=== PATIENT | male | born 1975 | race Two or more races ===

== ENCOUNTER 2018-05-10 12:10 | Emergency (ER) | payer BC ==
[~2018-05-10] VITALS: Ht 165.1 cm; Wt 86.2 kg
[2018-05-10 12:30] VITALS: BP 129/88
--- NOTE | 2018-05-10 14:12 | PHYS DOC ---
Past Medical History Past Medical History: No Pertinent History Past Surgical History: Other Additional Past Surgical Histo: LEFT EAR DRUM Alcohol Use: Occasionally Drug Use: Marijuana Adult General Chief Complaint Chief Complaint: HEMORRHOIDS HPI HPI Patient is a 42 year old male who presents with a history of constipation but last night began having some bleeding from his rectum area. Patient states that last night after he had a bowel movement he noticed bleeding and pain. Patient states that he's continued to have some bleeding from the area. Review of Systems Review of Systems Constitutional: Denies fever or chills [] Eyes: Denies change in visual acuity, redness, or eye pain [] HENT: Denies nasal congestion or sore throat [] Respiratory: Denies cough or shortness of breath [] Cardiovascular: No additional information not addressed in HPI [] GI: Bleeding hemorrhoid. Denies abdominal pain, nausea, vomiting, bloody stools or diarrhea [] : Denies dysuria or hematuria [] Musculoskeletal: Denies back pain or joint pain [] Integument: Denies rash or skin lesions [] Neurologic: Denies headache, focal weakness or sensory changes [] All other systems were reviewed and found to be within normal limits, except as documented in this note. Allergies Allergies Allergies Coded Allergies Type Severity Reaction Last Updated Verified No Known Drug Allergies 05/10/18 No Physical Exam Physical Exam Constitutional: Well developed, well nourished, no acute distress, non-toxic appearance. [] HENT: Normocephalic, atraumatic, bilateral external ears normal, oropharynx moist, no oral exudates, nose normal. [] Eyes: PERRLA, EOMI, conjunctiva normal, no discharge. [] Neck: Normal range of motion, no tenderness, supple, no stridor. [] Cardiovascular:Heart rate regular rhythm, no murmur [] Lungs & Thorax: Bilateral breath sounds clear to auscultation [] Abdomen: Bowel sounds normal, soft, no tenderness, no masses, no pulsatile masses. Tender bleeding hemorrhoid at 0900 on the rectum. [] Skin: Warm, dry, no erythema, no rash. [] Back: No tenderness, no CVA tenderness. [] Extremities: No tenderness, no cyanosis, no clubbing, ROM intact, no edema. [] Neurologic: Alert and oriented X 3, normal motor function, normal sensory function, no focal deficits noted. [] Psychologic: Affect normal, judgement normal, mood normal. [] Current Patient Data Vital Signs Vital Signs Date Time Temp Pulse Resp B/P (MAP) Pulse Ox O2 Delivery O2 Flow Rate FiO2 05/10/18 12:30 98.8 76 16 129/88 (102) 96 Room Air 98.8 EKG EKG [] Radiology/Procedures Radiology/Procedures [] Course & Med Decision Making Course & Med Decision Making Patient is a 42 year old male who presents with a history of constipation but last night began having some bleeding from his rectum area. Patient states that last night after he had a bowel movement he noticed bleeding and pain. Patient states that he's continued to have some bleeding from the area. Alert and oriented. Patient has a quarter-sized oozing hemorrhoid to the left side at approximately 9:00 on the rectum. There is a eraser sized opening on the hemorrhoid that is oozing blood. Patient states that the bleeding and pain started last night. Patient states he has chronic constipation. Vital signs within normal limits. Skin pink warm and dry. Mucous members are moist. There are no hemorrhoids felt inside the rectum. 1445: Gauze is placed over the hemorrhoid and pressure is held. After removal of the gauze there is a dime sized amount of blood on the gauze but bleeding seems to have slowed. Another gauze is placed and patient is holding pressure. Patient will be rechecked. 1520: Patient continues to have scant blood drainage from hemorrhoid. Patient is given as referral to Dr Petey Porter at [facility] who is a colorectal surgeon. Patient will get a prescription for Anusol and a stool softner. Dragon Disclaimer Dragon Disclaimer This electronic medical record was generated, in whole or in part, using a voice recognition dictation system. Departure Departure Impression: Primary Impression: Bleeding external hemorrhoids Disposition: 01 HOME, SELF-CARE Condition: STABLE Referrals: BERNARDO FRANKLIN MD (PCP) Patient Instructions: Hemorrhoids Additional Instructions: Call Dr. Petey Porter Colorectal surgeon at [phone] for a appointment. Use medication as prescribed. Scripts Docusate Sodium (COLACE) 100 Mg Capsule 1 CAP PO BID, #30 CAP Prov: SAM BREWER [employer] WELDING MACHINE OPERATOR 05/10/18 Hydrocortisone (ANUSOL-HC) 30 Gm Cream..g. 1 JUNIOR TP BID for 15 Days, #30 GM Prov: SAM BREWER APRN 05/10/18 SAM BREWER APRN May 10, 2018 14:12
[2018-05-10] MEDS ORDERED: HYDR30CR61 TP (14:52)
[2018-05-10] MEDS ORDERED: DOCU-109 PO (15:38)
== END 2018-05-10 16:00 | disposition home or self-care (01) ==
LOC: ER 12:10
DX: K64.4 Residual hemorrhoidal skin tags (principal); K62.5 Hemorrhage of anus and rectum
CPT/HCPCS: 99283

== ENCOUNTER 2018-09-14 11:37 | Inpatient (IN) | payer BC ==
[~2018-09-14] VITALS: Ht 172.7 cm; Wt 84.6 kg
[~2018-09-14 11:37] MED LIST: DOCU-109 PO; HYDR30CR61 TP
[2018-09-14] MEDS ORDERED: IV NORMAL SALINE 1000ML BAG 1,000 ML IV SCH (11:51)
[2018-09-14] MEDS ORDERED: KETOROLAC 30 MG/ML VIAL. IV ONE (12:00)
[2018-09-14 12:10] LABS: BASO % 0 % (0-3); EOS % 0 % (0-3); HEMATOCRIT 47.1 % (39.0-53.0); HEMOGLOBIN 16.4 g/dL (13.0-17.5); LYMPH # 0.5 x10^3/uL (1.0-4.8); LYMPH % 4 % (24-48); MEAN CORPUSCULAR HEMOGLOBIN 31 pg (25-35); MEAN CORPUSCULAR HGB CONC 35 g/dL (31-37); MEAN CORPUSCULAR VOLUME 89 fL (79-100); MONO # 0.9 x10^3/uL (0.0-1.1); MONO % 7 % (0-9); NEUT # 11.2 x10^3uL (1.8-7.7); NEUT % 89 % (31-73); PLATELET COUNT 173 x10^3/uL (140-400); RED BLOOD COUNT 5.28 x10^6/uL (4.30-5.70); RED CELL DISTRIBUTION WIDTH 12.9 % (11.5-14.5); WHITE BLOOD COUNT 12.6 x10^3/uL (4.0-11.0)
[2018-09-14 12:24] LABS: CALCIUM 9.9 mg/dL (8.5-10.1); CREATININE 2.3 mg/dL (0.7-1.3); GFR 31.3; POTASSIUM 3.3 mmol/L (3.5-5.1)
[2018-09-14 12:30] LABS: ALBUMIN 3.7 g/dL (3.4-5.0); ALBUMIN/GLOBULIN RATIO 0.8 (1.0-1.7); TOTAL BILIRUBIN 3.5 mg/dL (0.2-1.0); TOTAL PROTEIN 8.6 g/dL (6.4-8.2)
--- NOTE | 2018-09-14 12:33 | RAD ---
PQRS Compliance statement: One or more of the following individualized dose reduction techniques were utilized for this examination: 1. Automated exposure control. 2. Adjustment of the mA and/or kV according to patient size. 3. Use of iterative reconstruction technique. Indication:Bilateral flank pain. TECHNIQUE: CT abdomen and pelvis without IV contrast with multiplanar reformats. COMPARISON: None FINDINGS: Limited evaluation of solid abdominal and pelvic organs due to lack of IV contrast. Heart is normal in size. No pericardial or pleural effusion. Clear lung bases. Too small to characterize low attenuating lesion is seen in segment 2/4 a junction (series 2 image 61). Otherwise, noncontrast appearance of the liver, spleen, gallbladder, pancreas, adrenals within normal limits. 6 cm partially exophytic too small to characterize low attenuating lesion in the right kidney. No nephrolithiasis or hydronephrosis. No enlarged retroperitoneal or pelvic adenopathy. No free pelvic fluid or ascites. Prostate is enlarged measuring 6.3 x 5.3 cm. Urinary bladder is decompressed without radiopaque stone. Small fat-containing left inguinal hernia. Inflammatory changes are seen in the perivascular fat. No bowel obstruction. Normal appendix. No pneumoperitoneum. No suspicious bony lesion. IMPRESSION: 1. Too small to characterize solitary liver and right renal lesion statistically simple cysts in absence of known malignancy. Follow-up CT abdomen with IV contrast can be obtained in 6 months. 2. Enlarged prostate. Clinically correlate with physical exam and PSA. 3. No nephrolithiasis. Circumferential urinary bladder wall thickening with perivesicular fat stranding may be secondary to cystitis. Clinically correlate with urinalysis. Electronically signed by: Edouard Sepulveda DO (09/14/2018 12:31 PM) [facility]
[2018-09-14 13:01] LABS: % BANDS 20 % (0-9); % LYMPHS 1 % (24-48); % MONOS 1 % (0-10); % SEGS 78 % (35-66); PLT ESTIMATE ADEQUATE (ADEQUATE)
[2018-09-14 13:40] LABS: CLARITY,URINE TURBID; COLOR,URINE ORANGE
[2018-09-14 14:01] LABS: WBC,URINE >40 /HPF (0-4)
[2018-09-14 14:05] LABS: BACTERIA,URINE MODERATE /HPF (0-FEW)
--- NOTE | 2018-09-14 14:26 | PHYS DOC ---
Past Medical History Past Medical History: No Pertinent History Past Surgical History: Other Additional Past Surgical Histo: LEFT EAR DRUM Alcohol Use: Occasionally Drug Use: Marijuana Adult General Chief Complaint Chief Complaint: FLANK PAIN HPI HPI Patient is a 42-year-old male who presents with complaint of bilateral flank pain with subjective fever, sweats as well as nausea and vomiting for the last 3 days. Patient states that he has had difficulty in keeping anything down. He states that the pain in his back right now is about a 5 out of 10 but states that yesterday the pain was much worse. Patient states that nothing has been improving his pain. He also indicates that he has had painful urination and passing very small amounts of urine at a time.[] Review of Systems Review of Systems Constitutional: Positive fever and chills [] Respiratory: Denies cough or shortness of breath [] Cardiovascular: No additional information not addressed in HPI [] GI: Denies abdominal pain. Complains of nausea and vomiting [] : Positive dysuria, urinary urgency and hematuria [] Musculoskeletal: Complains of bilateral flank and back pain [] All other systems were reviewed and found to be within normal limits, except as documented in this note. Current Medications Current Medications Current Medications Medications (Trade) Dose Ordered Sig/Philip Start Time Stop Time Status Last Admin Dose Admin Ceftriaxone Sodium (Rocephin) 1 gm 1X ONCE 09/14/18 14:30 09/14/18 14:31 DC 09/14/18 14:39 1 GM Ketorolac Tromethamine (Toradol 30mg Vial) 30 mg 1X ONCE 09/14/18 12:00 09/14/18 12:01 DC 09/14/18 12:12 30 MG Sodium Chloride 1,000 ml @ 1,000 mls/hr Q1H 09/14/18 11:51 09/14/18 12:50 DC 09/14/18 11:57 1,000 MLS/HR Allergies Allergies Allergies Coded Allergies Type Severity Reaction Last Updated Verified No Known Drug Allergies 09/14/18 No Physical Exam Physical Exam Constitutional: Well developed, well nourished, no acute distress, non-toxic appearance. [] HENT: Normocephalic, atraumatic, bilateral external ears normal, oropharynx moist, no oral exudates, nose normal. [] Eyes: PERRLA, EOMI, conjunctiva normal, no discharge. [] Neck: Normal range of motion, no tenderness, supple, no stridor. [] Cardiovascular:Heart rate regular rhythm, no murmur [] Lungs & Thorax: Bilateral breath sounds clear to auscultation [] Abdomen: Bowel sounds normal, soft, with suprapubic tenderness. [] Skin: Cool and diaphoretic. [] Back: Positive CVA tenderness on the right. [] Extremities: No tenderness, no cyanosis, no clubbing, ROM intact, no edema. [] Neurologic: Alert and oriented X 3, no focal deficits noted. [] Current Patient Data Vital Signs Vital Signs Date Time Temp Pulse Resp B/P (MAP) Pulse Ox O2 Delivery O2 Flow Rate FiO2 09/14/18 12:40 101 18 111/73 (86) 95 Room Air 09/14/18 11:46 99.7 99.7 Lab Values Laboratory Tests Test 09/14/18 12:00 09/14/18 13:30 White Blood Count 12.6 x10^3/uL (4.0-11.0) H Red Blood Count 5.28 x10^6/uL (4.30-5.70) Hemoglobin 16.4 g/dL (13.0-17.5) Hematocrit 47.1 % (39.0-53.0) Mean Corpuscular Volume 89 fL (79-100) Mean Corpuscular Hemoglobin 31 pg (25-35) Mean Corpuscular Hemoglobin Concent 35 g/dL (31-37) Red Cell Distribution Width 12.9 % (11.5-14.5) Platelet Count 173 x10^3/uL (140-400) Neutrophils (%) (Auto) 89 % (31-73) H Lymphocytes (%) (Auto) 4 % (24-48) L Monocytes (%) (Auto) 7 % (0-9) Eosinophils (%) (Auto) 0 % (0-3) Basophils (%) (Auto) 0 % (0-3) Neutrophils # (Auto) 11.2 x10^3uL (1.8-7.7) H Lymphocytes # (Auto) 0.5 x10^3/uL (1.0-4.8) L Monocytes # (Auto) 0.9 x10^3/uL (0.0-1.1) Eosinophils # (Auto) 0.0 x10^3/uL (0.0-0.7) Basophils # (Auto) 0.0 x10^3/uL (0.0-0.2) Segmented Neutrophils % 78 % (35-66) H Band Neutrophils % 20 % (0-9) H Lymphocytes % 1 % (24-48) L Monocytes % 1 % (0-10) Platelet Estimate Adequate (ADEQUATE) Sodium Level 135 mmol/L (136-145) L Potassium Level 3.3 mmol/L (3.5-5.1) L Chloride Level 95 mmol/L (98-107) L Carbon Dioxide Level 26 mmol/L (21-32) Anion Gap 14 (6-14) Blood Urea Nitrogen 23 mg/dL (8-26) Creatinine 2.3 mg/dL (0.7-1.3) H Estimated GFR (Cockcroft-Gault) 31.3 BUN/Creatinine Ratio 10 (6-20) Glucose Level 126 mg/dL (70-99) H Calcium Level 9.9 mg/dL (8.5-10.1) Total Bilirubin 3.5 mg/dL (0.2-1.0) H Aspartate Amino Transferase (AST) 36 U/L (15-37) Alanine Aminotransferase (ALT) 40 U/L (16-63) Alkaline Phosphatase 123 U/L (46-116) H Total Protein 8.6 g/dL (6.4-8.2) H Albumin 3.7 g/dL (3.4-5.0) Albumin/Globulin Ratio 0.8 (1.0-1.7) L Urine Collection Type Unknown Urine Color Clymer Urine Clarity Turbid Urine pH 5.0 Urine Specific Lamar 1.025 Urine Protein mg/dL (NEG-TRACE) Urine Glucose (UA) mg/dL (NEG) Urine Ketones (Stick) mg/dL (NEG) Urine Blood Large (NEG) Urine Nitrite (NEG) Urine Bilirubin (NEG) Urine Urobilinogen Dipstick mg/dL (0.2 mg/dL) Urine Leukocyte Esterase (NEG) Urine RBC 6-10 /HPF (0-2) Urine WBC >40 /HPF (0-4) Urine Bacteria Moderate /HPF (0-FEW) Laboratory Tests 09/14/18 12:00 Laboratory Tests 09/14/18 12:00 EKG EKG [] Radiology/Procedures Radiology/Procedures [] Impressions: PROCEDURE: CT ABDOMEN PELVIS WO CONTRAST PQRS Compliance statement: One or more of the following individualized dose reduction techniques were utilized for this examination: 1. Automated exposure control. 2. Adjustment of the mA and/or kV according to patient size. 3. Use of iterative reconstruction technique. Indication:Bilateral flank pain. TECHNIQUE: CT abdomen and pelvis without IV contrast with multiplanar reformats. COMPARISON: None FINDINGS: Limited evaluation of solid abdominal and pelvic organs due to lack of IV contrast. Heart is normal in size. No pericardial or pleural effusion. Clear lung bases. Too small to characterize low attenuating lesion is seen in segment 2/4 a junction (series 2 image 61). Otherwise, noncontrast appearance of the liver, spleen, gallbladder, pancreas, adrenals within normal limits. 6 cm partially exophytic too small to characterize low attenuating lesion in the right kidney. No nephrolithiasis or hydronephrosis. No enlarged retroperitoneal or pelvic adenopathy. No free pelvic fluid or ascites. Prostate is enlarged measuring 6.3 x 5.3 cm. Urinary bladder is decompressed without radiopaque stone. Small fat-containing left inguinal hernia. Inflammatory changes are seen in the perivascular fat. No bowel obstruction. Normal appendix. No pneumoperitoneum. No suspicious bony lesion. IMPRESSION: 1. Too small to characterize solitary liver and right renal lesion statistically simple cysts in absence of known malignancy. Follow-up CT abdomen with IV contrast can be obtained in 6 months. 2. Enlarged prostate. Clinically correlate with physical exam and PSA. 3. No nephrolithiasis. Circumferential urinary bladder wall thickening with perivesicular fat stranding may be secondary to cystitis. Clinically correlate with urinalysis. Electronically signed by: Edouard Sepulveda DO (09/14/2018 12:31 PM) [facility] Course & Med Decision Making Course & Med Decision Making Pertinent Labs and Imaging studies reviewed. (See chart for details) [] Dragon Disclaimer Dragon Disclaimer This electronic medical record was generated, in whole or in part, using a voice recognition dictation system. Departure Departure Impression: Primary Impression: Pyelonephritis Additional Impression: Acute kidney injury Disposition: ADMITTED INPATIENT Admitting Physician: HIMS Condition: IMPROVED Referrals: BERNARDO FRANKLIN MD (PCP) Problem Qualifiers MAO HIGH Jr., DO Sep 14, 2018 14:26
[2018-09-14] MEDS ORDERED: cefTRIAXone IV Push 1 GM VIAL. IVP ONE (14:30)
[2018-09-14] MEDS: IV NORMAL SALINE 1000ML BAG 1,000 ML IV SCH ×2 (14:47→21:27)
--- NOTE | 2018-09-14 14:48 | PDOC1 ---
History and Physical Date of Admission Date of Admission DATE: 09/14/18 TIME: 14:46 Identification/Chief Complaint Chief Complaint SEEN IN ER , 42-year-old male who presents with complaint of bilateral flank pain with subjective fever, sweats as well as nausea and vomiting for the last 3 days. Patient states that he has had difficulty in keeping anything down. He states that the pain in his back right now is about a 5 out of 10 but states that yesterday the pain was much worse. Patient states that nothing has been improving his pain. He also indicates that he has had painful urination and passing very small amounts of urine at a time. UA SUGGESTS UTI/ SEPSIS, ARF[] Past Medical History Past Medical History Past Medical History Past Medical History Past Medical History: No Pertinent History Past Surgical History: Other Additional Past Surgical Histo: LEFT EAR DRUM Alcohol Use: Occasionally Drug Use: Marijuana FAMILY HX HTN Cardiovascular: Hyperlipidemia Hepatobiliary: No pertinent hx Dermatology: No pertinent hx Family History Family History: High Cholestrol, Hypertension Social History Smoke: <1 pack per day ALCOHOL: heavy Drugs: None Current Problem List Problem List Problems Medical Problems: (1) Acute kidney injury Status: Acute (2) Pyelonephritis Status: Acute Current Medications Current Medications Current Medications Sodium Chloride 1,000 ml @ 1,000 mls/hr Q1H IV Last administered on 09/14/18at 11:57; Start 09/14/18 at 11:51; Stop 09/14/18 at 12:50; Status DC Ketorolac Tromethamine (Toradol 30mg Vial) 30 mg 1X ONCE IV Last administered on 09/14/18at 12:12; Start 09/14/18 at 12:00; Stop 09/14/18 at 12:01; Status DC Ceftriaxone Sodium (Rocephin) 1 gm 1X ONCE IVP Last administered on 09/14/18at 14:39; Start 09/14/18 at 14:30; Stop 09/14/18 at 14:31; Status DC Active Scripts Active Colace (Docusate Sodium) 100 Mg Capsule 1 Cap PO BID Anusol-Hc (Hydrocortisone) 30 Gm Cream..g. 1 Gee TP BID 15 Days Allergies Allergies: Coded Allergies: No Known Drug Allergies (Unverified , 09/14/18) ROS Review of System Review of Systems Review of Systems Constitutional: Positive fever and chills [] Respiratory: Denies cough or shortness of breath [] Cardiovascular: No additional information not addressed in HPI [] GI: Denies abdominal pain. Complains of nausea and vomiting [] : Positive dysuria, urinary urgency and hematuria [] Musculoskeletal: Complains of bilateral flank and back pain [] 14 PT systems were reviewed and found to be within normal limits, except as documented . General: YES: Fatigue PSYCHOLOGICAL ROS: No: Anxiety, Behavioral Disorder, Concentration difficultie, Decreased libido, Depression, Disorientation, Hallucinations, Hostility, Irritablity, Memory difficulties, Mood Swings, Obsessive thoughts, Physical abuse, Sexual abuse, Sleep disturbances, Suicidal ideation, Other Eyes: No Blurry vision, No Decreased vision, No Double vision, No Dry eyes, No Excessive tearing, No Eye Pain, No Itchy Eyes, No Loss of vision, No Photophobia, No Scotomata, No Uses contacts, No Uses glasses, No Other Hematological and Lymphatic: No: Bleeding Problems, Blood Clots, Blood Transfusions, Brusing, Night Sweats, Pallor, Swollen Lymph Nodes, Other Respiratory: No: Cough, Hemoptysis, Orthopnea, Pleuritic Pain, Shortness of breath, SOB with excertion, Sputum Changes, Stridor, Tachypnea, Wheezing, Other Cardiovascular: No Chest Pain, No Palpitations, No Orthopnea, No Paroxysmal Noc. Dyspnea, No Edema, No Lt Headedness, No Other Gastrointestinal: Yes Nausea Musculoskeletal: No Gait Disturbance, No Joint Pain, No Joint Stiffness, No Joint Swelling, No Muscle Pain, No Muscular Weakness, No Pain In:, No Swelling In:, No Other Skin: Yes Dry Skin Physical Exam Physical Exam Physical Exam Physical Exam Constitutional: Well developed, well nourished, MILD acute distress, non-toxic appearance. [] HENT: Normocephalic, atraumatic, bilateral external ears normal, oropharynx moist, no oral exudates, nose normal. [] Eyes: PERRLA, EOMI, conjunctiva normal, no discharge. [] Neck: Normal range of motion, no tenderness, supple, no stridor. [] Cardiovascular:Heart rate regular rhythm, no murmur [] Lungs & Thorax: Bilateral breath sounds clear to auscultation [] Abdomen: Bowel sounds normal, soft, with suprapubic tenderness. [] Skin: Cool and diaphoretic. [] Back: Positive CVA tenderness on the right. [] Extremities: No tenderness, no cyanosis, no clubbing, ROM intact, no edema. [] Neurologic: Alert and oriented X 3, no focal deficits noted. [] General: Alert, Oriented X3, Cooperative, mild distress HEENT: Atraumatic, PERRLA, EOMI Lungs: Clear to auscultation, Normal air movement Heart: S1S2, RRR, no thrills, no gallops, no murmurs Abdomen: Normal bowel sounds, Soft Rectal Exam: not examined Extremities: No cyanosis Neuro: Normal speech, Strength at 5/5 X4 ext, Cranial nerves 3-12 NL Psych/Mental Status: Mental status NL, Mood NL Vitals Vitals Vital Signs Date Time Temp Pulse Resp B/P (MAP) Pulse Ox O2 Delivery O2 Flow Rate FiO2 09/14/18 14:44 64 18 115/80 (92) 09/14/18 12:40 95 Room Air 09/14/18 11:46 99.7 99.7 Labs Labs Laboratory Tests Test 09/14/18 12:00 09/14/18 13:30 White Blood Count 12.6 x10^3/uL (4.0-11.0) Red Blood Count 5.28 x10^6/uL (4.30-5.70) Hemoglobin 16.4 g/dL (13.0-17.5) Hematocrit 47.1 % (39.0-53.0) Mean Corpuscular Volume 89 fL (79-100) Mean Corpuscular Hemoglobin 31 pg (25-35) Mean Corpuscular Hemoglobin Concent 35 g/dL (31-37) Red Cell Distribution Width 12.9 % (11.5-14.5) Platelet Count 173 x10^3/uL (140-400) Neutrophils (%) (Auto) 89 % (31-73) Lymphocytes (%) (Auto) 4 % (24-48) Monocytes (%) (Auto) 7 % (0-9) Eosinophils (%) (Auto) 0 % (0-3) Basophils (%) (Auto) 0 % (0-3) Neutrophils # (Auto) 11.2 x10^3uL (1.8-7.7) Lymphocytes # (Auto) 0.5 x10^3/uL (1.0-4.8) Monocytes # (Auto) 0.9 x10^3/uL (0.0-1.1) Eosinophils # (Auto) 0.0 x10^3/uL (0.0-0.7) Basophils # (Auto) 0.0 x10^3/uL (0.0-0.2) Segmented Neutrophils % 78 % (35-66) Band Neutrophils % 20 % (0-9) Lymphocytes % 1 % (24-48) Monocytes % 1 % (0-10) Platelet Estimate Adequate (ADEQUATE) Sodium Level 135 mmol/L (136-145) Potassium Level 3.3 mmol/L (3.5-5.1) Chloride Level 95 mmol/L (98-107) Carbon Dioxide Level 26 mmol/L (21-32) Anion Gap 14 (6-14) Blood Urea Nitrogen 23 mg/dL (8-26) Creatinine 2.3 mg/dL (0.7-1.3) Estimated GFR (Cockcroft-Gault) 31.3 BUN/Creatinine Ratio 10 (6-20) Glucose Level 126 mg/dL (70-99) Calcium Level 9.9 mg/dL (8.5-10.1) Total Bilirubin 3.5 mg/dL (0.2-1.0) Aspartate Amino Transf (AST/SGOT) 36 U/L (15-37) Alanine Aminotransferase (ALT/SGPT) 40 U/L (16-63) Alkaline Phosphatase 123 U/L (46-116) Total Protein 8.6 g/dL (6.4-8.2) Albumin 3.7 g/dL (3.4-5.0) Albumin/Globulin Ratio 0.8 (1.0-1.7) Urine Collection Type Unknown Urine Color [place] Urine Clarity Turbid Urine pH 5.0 Urine Specific [place] 1.025 Urine Protein mg/dL (NEG-TRACE) Urine Glucose (UA) mg/dL (NEG) Urine Ketones (Stick) mg/dL (NEG) Urine Blood Large (NEG) Urine Nitrite (NEG) Urine Bilirubin (NEG) Urine Urobilinogen Dipstick mg/dL (0.2 mg/dL) Urine Leukocyte Esterase (NEG) Urine RBC 6-10 /HPF (0-2) Urine WBC >40 /HPF (0-4) Urine Bacteria Moderate /HPF (0-FEW) Laboratory Tests Test 09/14/18 12:00 09/14/18 13:30 White Blood Count 12.6 x10^3/uL (4.0-11.0) Red Blood Count 5.28 x10^6/uL (4.30-5.70) Hemoglobin 16.4 g/dL (13.0-17.5) Hematocrit 47.1 % (39.0-53.0) Mean Corpuscular Volume 89 fL (79-100) Mean Corpuscular Hemoglobin 31 pg (25-35) Mean Corpuscular Hemoglobin Concent 35 g/dL (31-37) Red Cell Distribution Width 12.9 % (11.5-14.5) Platelet Count 173 x10^3/uL (140-400) Neutrophils (%) (Auto) 89 % (31-73) Lymphocytes (%) (Auto) 4 % (24-48) Monocytes (%) (Auto) 7 % (0-9) Eosinophils (%) (Auto) 0 % (0-3) Basophils (%) (Auto) 0 % (0-3) Neutrophils # (Auto) 11.2 x10^3uL (1.8-7.7) Lymphocytes # (Auto) 0.5 x10^3/uL (1.0-4.8) Monocytes # (Auto) 0.9 x10^3/uL (0.0-1.1) Eosinophils # (Auto) 0.0 x10^3/uL (0.0-0.7) Basophils # (Auto) 0.0 x10^3/uL (0.0-0.2) Segmented Neutrophils % 78 % (35-66) Band Neutrophils % 20 % (0-9) Lymphocytes % 1 % (24-48) Monocytes % 1 % (0-10) Platelet Estimate Adequate (ADEQUATE) Sodium Level 135 mmol/L (136-145) Potassium Level 3.3 mmol/L (3.5-5.1) Chloride Level 95 mmol/L (98-107) Carbon Dioxide Level 26 mmol/L (21-32) Anion Gap 14 (6-14) Blood Urea Nitrogen 23 mg/dL (8-26) Creatinine 2.3 mg/dL (0.7-1.3) Estimated GFR (Cockcroft-Gault) 31.3 BUN/Creatinine Ratio 10 (6-20) Glucose Level 126 mg/dL (70-99) Calcium Level 9.9 mg/dL (8.5-10.1) Total Bilirubin 3.5 mg/dL (0.2-1.0) Aspartate Amino Transf (AST/SGOT) 36 U/L (15-37) Alanine Aminotransferase (ALT/SGPT) 40 U/L (16-63) Alkaline Phosphatase 123 U/L (46-116) Total Protein 8.6 g/dL (6.4-8.2) Albumin 3.7 g/dL (3.4-5.0) Albumin/Globulin Ratio 0.8 (1.0-1.7) Urine Collection Type Unknown Urine Color [place] Urine Clarity Turbid Urine pH 5.0 Urine Specific [place] 1.025 Urine Protein mg/dL (NEG-TRACE) Urine Glucose (UA) mg/dL (NEG) Urine Ketones (Stick) mg/dL (NEG) Urine Blood Large (NEG) Urine Nitrite (NEG) Urine Bilirubin (NEG) Urine Urobilinogen Dipstick mg/dL (0.2 mg/dL) Urine Leukocyte Esterase (NEG) Urine RBC 6-10 /HPF (0-2) Urine WBC >40 /HPF (0-4) Urine Bacteria Moderate /HPF (0-FEW) Images Images : 1975 LOCATION: ER AGE: 42 SEX: M EXAM STATUS: REG ER ORD. PHYSICIAN: MAO HIGH Jr. DO REASON: bilateral flank pain PROCEDURE: CT ABDOMEN PELVIS WO CONTRAST PQRS Compliance statement: One or more of the following individualized dose reduction techniques were utilized for this examination: 1. Automated exposure control. 2. Adjustment of the mA and/or kV according to patient size. 3. Use of iterative reconstruction technique. Indication:Bilateral flank pain. TECHNIQUE: CT abdomen and pelvis without IV contrast with multiplanar reformats. COMPARISON: None FINDINGS: Limited evaluation of solid abdominal and pelvic organs due to lack of IV contrast. Heart is normal in size. No pericardial or pleural effusion. Clear lung bases. Too small to characterize low attenuating lesion is seen in segment 2/4 a junction (series 2 image 61). Otherwise, noncontrast appearance of the liver, spleen, gallbladder, pancreas, adrenals within normal limits. 6 cm partially exophytic too small to characterize low attenuating lesion in the right kidney. No nephrolithiasis or hydronephrosis. No enlarged retroperitoneal or pelvic adenopathy. No free pelvic fluid or ascites. Prostate is enlarged measuring 6.3 x 5.3 cm. Urinary bladder is decompressed without radiopaque stone. Small fat-containing left inguinal hernia. Inflammatory changes are seen in the perivascular fat. No bowel obstruction. Normal appendix. No pneumoperitoneum. No suspicious bony lesion. IMPRESSION: 1. Too small to characterize solitary liver and right renal lesion statistically simple cysts in absence of known malignancy. Follow-up CT abdomen with IV contrast can be obtained in 6 months. 2. Enlarged prostate. Clinically correlate with physical exam and PSA. 3. No nephrolithiasis. Circumferential urinary bladder wall thickening with perivesicular fat stranding may be secondary to cystitis. Clinically correlate with urinalysis. Electronically signed by: Edouard Sepulveda DO (09/14/2018 12:31 PM) [facility]- VTE Prophylaxis Ordered VTE Prophylaxis Devices: Yes VTE Pharmacological Prophylaxi: Yes Assessment/Plan Assessment/Plan IMPRESSION: 1. solitary liver and right renal lesion statistically simple cysts in absence of known malignancy. Follow-up CT abdomen with IV contrast can be obtained in 6 months. 2. Enlarged prostate. ON CT IMAGING 3. Circumferential urinary bladder wall thickening with perivesicular fat stranding may be secondary to cystitis. Clinically correlate with urinalysis. 4. UTI 5. SEPSIS 6, ACUTE RENAL FAILURE 7. SEVERE ALCOHOL ABUSE, drinks 12 beers a day 8. thc abuse PLAN ADMIT IV ANTIBIOTICS IV FLUIDS BLOOD AND URINE CULTURES DVT PROPHYLAXIS Nephrology consult po protonix gi prophylaxis 76 min pt exam, chart review, > 50% of time spent with exam, chart review, pt care coordination, disease process education , d/w in room RANDI TRINIDAD MD Sep 14, 2018 14:48
[2018-09-14] MEDS ORDERED: MORPHINE SULFATE 2 MG/ML VIAL. IV PRN (15:00)
[2018-09-14] MEDS ORDERED: ONDANSETRON PF 4 MG/2 ML VIAL. IV PRN (15:00)
[2018-09-14] MEDS ORDERED: cloNIDine HCL 0.1 MG TABLET PO PRN (15:15)
[2018-09-14] MEDS ORDERED: POTASSIUM CHLORIDE 20 MEQ TABLET.ER. PO ONE (15:15)
[2018-09-14] MEDS ORDERED: LORazepam 1 MG TABLET PO PRN ×2 (15:15)
[2018-09-14] MEDS ORDERED: HALOPERIDOL LACTATE 5 MG/ML VIAL. IVP PRN (15:15)
[2018-09-14] MEDS ORDERED: diphenhydrAMINE 50 MG/ML VIAL IVP PRN (15:15)
--- NOTE | 2018-09-14 15:30 | NUR ---
The patient, SOLANGE HERNANDEZ, 42 y/o, M admitted by RANDI TRINIDAD MD, was given written information regarding hospital policies, unit procedures and contact persons. Valuables were checked. Patient verb. understanding POC and fall protocol. Fall contract witnessed. See admission and assessment. Side rails up times two, call light at hand. Continue cares and monitor.
[2018-09-14] MEDS: MULTIVIT INFUSN,ADULT 4,VIT K 10 ML, THIAMINE INJ 100 MG, FOLIC ACID INJ 1 MG in IV NOR... IV SCH (15:43)
[2018-09-14 19:00] VITALS: BP 152/119
[2018-09-14] MEDS: ACETAMINOPHEN 325 MG TABLET. PO PRN (19:57)
[2018-09-14 22:59] VITALS: BP 145/66
[2018-09-15] MEDS: IV NORMAL SALINE 1000ML BAG 1,000 ML IV SCH ×2 (02:10→10:47)
[2018-09-15 02:39] VITALS: BP 110/67
[2018-09-15 05:18] LABS: BASO % 0 % (0-3); EOS % 0 % (0-3); HEMATOCRIT 39.5 % (39.0-53.0); HEMOGLOBIN 13.5 g/dL (13.0-17.5); LYMPH # 0.7 x10^3/uL (1.0-4.8); LYMPH % 6 % (24-48); MEAN CORPUSCULAR HEMOGLOBIN 31 pg (25-35); MEAN CORPUSCULAR HGB CONC 34 g/dL (31-37); MEAN CORPUSCULAR VOLUME 91 fL (79-100); MONO # 1.1 x10^3/uL (0.0-1.1); MONO % 9 % (0-9); NEUT # 10.2 x10^3uL (1.8-7.7); NEUT % 85 % (31-73); PLATELET COUNT 152 x10^3/uL (140-400); RED BLOOD COUNT 4.37 x10^6/uL (4.30-5.70); WHITE BLOOD COUNT 11.9 x10^3/uL (4.0-11.0)
[2018-09-15 05:25] LABS: ALBUMIN 2.8 g/dL (3.4-5.0); ALBUMIN/GLOBULIN RATIO 0.7 (1.0-1.7); CALCIUM 8.7 mg/dL (8.5-10.1); CREATININE 1.5 mg/dL (0.7-1.3); GFR 51.3; POTASSIUM 3.7 mmol/L (3.5-5.1); TOTAL BILIRUBIN 1.6 mg/dL (0.2-1.0)
[2018-09-15 05:59] LABS: PROTHROMBIN TIME PATIENT 14.9 SEC (11.7-14.0)
[2018-09-15 07:00] VITALS: BP 120/72
[2018-09-15] MEDS: ACETAMINOPHEN 325 MG TABLET. PO PRN ×3 (07:31→15:19)
[2018-09-15] MEDS ORDERED: VANCOMYCIN 2 GM in IV NORMAL SALINE 500ML BAG 500 ML IV ONE (08:15)
[2018-09-15] MEDS ORDERED: VANCOMYCIN 500 MG in IV NORMAL SALINE 100ML 100 ML IV ONE (08:15)
[2018-09-15] MEDS ORDERED: VANCOMYCIN PER PHARMACY MC PRN (08:30)
--- NOTE | 2018-09-15 08:46 | PDOC ---
Infectious Disease Note Vital Sign Vital Signs Vital Signs Date Time Temp Pulse Resp B/P (MAP) Pulse Ox O2 Delivery O2 Flow Rate FiO2 09/15/18 07:43 Room Air 09/15/18 07:00 102.8 113 12 120/72 (88) 91 102.8 Labs Lab Laboratory Tests Test 09/14/18 12:00 09/14/18 13:30 09/15/18 04:00 White Blood Count 12.6 x10^3/uL (4.0-11.0) 11.9 x10^3/uL (4.0-11.0) Red Blood Count 5.28 x10^6/uL (4.30-5.70) 4.37 x10^6/uL (4.30-5.70) Hemoglobin 16.4 g/dL (13.0-17.5) 13.5 g/dL (13.0-17.5) Hematocrit 47.1 % (39.0-53.0) 39.5 % (39.0-53.0) Mean Corpuscular Volume 89 fL (79-100) 91 fL (79-100) Mean Corpuscular Hemoglobin 31 pg (25-35) 31 pg (25-35) Mean Corpuscular Hemoglobin Concent 35 g/dL (31-37) 34 g/dL (31-37) Red Cell Distribution Width 12.9 % (11.5-14.5) 13.0 % (11.5-14.5) Platelet Count 173 x10^3/uL (140-400) 152 x10^3/uL (140-400) Neutrophils (%) (Auto) 89 % (31-73) 85 % (31-73) Lymphocytes (%) (Auto) 4 % (24-48) 6 % (24-48) Monocytes (%) (Auto) 7 % (0-9) 9 % (0-9) Eosinophils (%) (Auto) 0 % (0-3) 0 % (0-3) Basophils (%) (Auto) 0 % (0-3) 0 % (0-3) Neutrophils # (Auto) 11.2 x10^3uL (1.8-7.7) 10.2 x10^3uL (1.8-7.7) Lymphocytes # (Auto) 0.5 x10^3/uL (1.0-4.8) 0.7 x10^3/uL (1.0-4.8) Monocytes # (Auto) 0.9 x10^3/uL (0.0-1.1) 1.1 x10^3/uL (0.0-1.1) Eosinophils # (Auto) 0.0 x10^3/uL (0.0-0.7) 0.0 x10^3/uL (0.0-0.7) Basophils # (Auto) 0.0 x10^3/uL (0.0-0.2) 0.0 x10^3/uL (0.0-0.2) Segmented Neutrophils % 78 % (35-66) Band Neutrophils % 20 % (0-9) Lymphocytes % 1 % (24-48) Monocytes % 1 % (0-10) Platelet Estimate Adequate (ADEQUATE) Sodium Level 135 mmol/L (136-145) 133 mmol/L (136-145) Potassium Level 3.3 mmol/L (3.5-5.1) 3.7 mmol/L (3.5-5.1) Chloride Level 95 mmol/L (98-107) 98 mmol/L (98-107) Carbon Dioxide Level 26 mmol/L (21-32) 24 mmol/L (21-32) Anion Gap 14 (6-14) 11 (6-14) Blood Urea Nitrogen 23 mg/dL (8-26) 26 mg/dL (8-26) Creatinine 2.3 mg/dL (0.7-1.3) 1.5 mg/dL (0.7-1.3) Estimated GFR (Cockcroft-Gault) 31.3 51.3 BUN/Creatinine Ratio 10 (6-20) 17 (6-20) Glucose Level 126 mg/dL (70-99) 108 mg/dL (70-99) Calcium Level 9.9 mg/dL (8.5-10.1) 8.7 mg/dL (8.5-10.1) Total Bilirubin 3.5 mg/dL (0.2-1.0) 1.6 mg/dL (0.2-1.0) Aspartate Amino Transf (AST/SGOT) 36 U/L (15-37) 31 U/L (15-37) Alanine Aminotransferase (ALT/SGPT) 40 U/L (16-63) 32 U/L (16-63) Alkaline Phosphatase 123 U/L (46-116) 79 U/L (46-116) Total Protein 8.6 g/dL (6.4-8.2) 7.0 g/dL (6.4-8.2) Albumin 3.7 g/dL (3.4-5.0) 2.8 g/dL (3.4-5.0) Albumin/Globulin Ratio 0.8 (1.0-1.7) 0.7 (1.0-1.7) Urine Collection Type Unknown Urine Color [place] Urine Clarity Turbid Urine pH 5.0 Urine Specific [place] 1.025 Urine Protein mg/dL (NEG-TRACE) Urine Glucose (UA) mg/dL (NEG) Urine Ketones (Stick) mg/dL (NEG) Urine Blood Large (NEG) Urine Nitrite (NEG) Urine Bilirubin (NEG) Urine Urobilinogen Dipstick mg/dL (0.2 mg/dL) Urine Leukocyte Esterase (NEG) Urine RBC 6-10 /HPF (0-2) Urine WBC >40 /HPF (0-4) Urine Bacteria Moderate /HPF (0-FEW) Prothrombin Time 14.9 SEC (11.7-14.0) Prothromb Time International Ratio 1.2 (0.8-1.1) Objective Assessment Fever Leukocytosis UTI POA CATHERINE Enlarged prostate Heavy alcohol use Plan Plan of Care Zosyn D/c vanc, last dose vanc 09/15. Monitor WBC/temp/renal function & UO closely May need urology eval Hydration f/u cultures Supportive care Thank you [id number] Patient seen and examine. Chart reviewed in detail. Case discussed with LINUX SECURITY ADMINISTRATOR. Agree with above plan. LOW DAMIAN APRN Sep 15, 2018 08:46 VIVEK ASCENCIO MD Sep 15, 2018 20:53
[2018-09-15] MEDS: PIPERACILLIN/TAZOBACTAM 3.375 GM in IV NORMAL SALINE 50ML 50 ML IV SCH ×3 (08:53→17:50)
[2018-09-15] MEDS ORDERED: cefTRIAXone IV Push 1 GM VIAL. IVP SCH (09:00)
--- NOTE | 2018-09-15 10:35 | CONS ---
DATE OF CONSULTATION: 09/15/2018 REFERRING PHYSICIAN: Dr. Martinez. REASON FOR CONSULT: Sepsis. HISTORY OF PRESENT ILLNESS: This patient is a 42-year-old male who presented with a 3-day history of intermittent stabbing type back pain associated with fevers, chills and body aches. He took Tylenol and ibuprofen with brief relief. He lost his appetite. He noticed he was urinating less frequently, small amounts and urine was very dark in color. He was found to have an elevated white blood cell count of 12,600, segs 78%, bands 20%. Abdominal/pelvis CT revealed an enlarged prostate measuring 6.3 x 5.3 cm and findings suggestive of cystitis. No nephrolithiasis noted. Urinalysis was suggestive of infection. Blood cultures are pending. He is currently on vancomycin and Zosyn. ID has been asked to consult for further evaluation and antibiotic management. PAST MEDICAL HISTORY: Hemorrhoids. PAST SURGICAL HISTORY: Left ear surgery. FAMILY HISTORY: Kidney stones, hyperlipidemia, hypertension. SOCIAL HISTORY: The patient is . He works in [employer]. He smokes tobacco and marijuana. He drinks about 12 beers a day. ALLERGIES: No known drug allergies. MEDICATIONS: Vancomycin, Zosyn, one-time dose of ceftriaxone in ER. Other medications are available and have been reviewed on the MAR. REVIEW OF SYSTEMS: The patient says he is feeling a little bit better. He spiked a fever of 102.8 earlier this morning. He is still not very hungry. He denies headache, nasal/sinus congestion or sore throat. Denies cough, shortness of air or chest discomfort. Denies nausea, vomiting or diarrhea. PHYSICAL EXAMINATION: VITAL SIGNS: Temperature T-max 102.8, blood pressure 120/72, heart rate 113, respiratory rate 12, pulse oximetry is 91% on room air, BMI 28. GENERAL: The patient is sitting in the chair, alert, in no apparent distress. HEENT: Pupils equally round. Oropharynx pink, dry. NECK: Supple. LUNGS: Clear to auscultation. HEART: S1 and S2. BACK: Negative CVAT. ABDOMEN: Obese, soft, nontender with bowel sounds present. EXTREMITIES: No gross edema or cyanosis. SKIN: Warm without generalized rash. NEUROLOGIC: Alert and answering questions appropriately. LABORATORY AND DIAGNOSTIC DATA: Today's WBC 11.9 from 12.6 on admission, hemoglobin 13.5, platelets 152,000. Creatinine 1.5 from 2.3, BUN 26, sodium 133, potassium 3.7, total bilirubin 1.6 from 3.5 on admission. AST 31, ALT 32, albumin 2.8. Urinalysis showed wbc's greater than 40, moderate bacteria. Leukocyte esterase and nitrite unable to determine accurate results due to color. Urine culture and blood cultures are pending. Abdominal/pelvis CT per HPI. Lactic acid pending. IMPRESSION: 1. Fever. 2. Leukocytosis. 3. Urinary tract infection present on admission. 4. Acute kidney injury. 5. Enlarged prostate. 6. Heavy alcohol use. PLAN: The patient received a dose of vancomycin this morning. We will discontinue in the setting of an acute kidney injury. Continue the Zosyn for now. Further antibiotic modifications pending culture results and clinical response. Maintain hydration. Monitor WBC count, temperature and renal function closely along with urine output. May need Urology evaluation. Thank you, Dr. Martinez for asking us to participate in this patient's care. Should you have further questions or concerns, please call. VIVEK ASCENCIO MD DR: MASON/brunilda JOB#: [id number] / [id number]
[2018-09-15 11:00] VITALS: BP 125/76
--- NOTE | 2018-09-15 11:46 | PDOC ---
PROGRESS NOTES History of Present Illness History of Present Illness VTE Prophylaxis Ordered VTE Prophylaxis Devices: Yes VTE Pharmacological Prophylaxi: Yes Assessment/Plan Assessment/Plan IMPRESSION: 1. solitary liver and right renal lesion statistically simple cysts in absence of known malignancy. Follow-up CT abdomen with IV contrast can be obtained in 6 months. 2. Enlarged prostate. ON CT IMAGING 3. Circumferential urinary bladder wall thickening with perivesicular fat stranding may be secondary to cystitis. Clinically correlate with urinalysis. 4. UTI 5. SEPSIS 6, ACUTE RENAL FAILURE 7. SEVERE ALCOHOL ABUSE, drinks 12 beers a day 8. thc abuse PLAN ADMIT IV ANTIBIOTICS IV FLUIDS BLOOD AND URINE CULTURES DVT PROPHYLAXIS Nephrology consult po protonix gi prophylaxis 38 min pt exam, chart review, > 50% of time spent with exam, chart review, pt care coordination, disease process education , d/w in room Vitals Vitals Vital Signs Date Time Temp Pulse Resp B/P (MAP) Pulse Ox O2 Delivery O2 Flow Rate FiO2 09/15/18 11:00 99.1 99 16 125/76 (92) 92 Room Air 99.1 Physical Exam General: Alert, Oriented X3, Cooperative, No acute distress, mild distress Heart: Regular rate, Normal S1, No murmurs Lungs: Clear Abdomen: Normal bowel sounds, Soft Extremities: No clubbing, No cyanosis, No edema Labs LABS Laboratory Tests Test 09/14/18 12:00 09/14/18 13:30 09/15/18 04:00 09/15/18 09:31 White Blood Count 12.6 x10^3/uL (4.0-11.0) 11.9 x10^3/uL (4.0-11.0) Red Blood Count 5.28 x10^6/uL (4.30-5.70) 4.37 x10^6/uL (4.30-5.70) Hemoglobin 16.4 g/dL (13.0-17.5) 13.5 g/dL (13.0-17.5) Hematocrit 47.1 % (39.0-53.0) 39.5 % (39.0-53.0) Mean Corpuscular Volume 89 fL (79-100) 91 fL (79-100) Mean Corpuscular Hemoglobin 31 pg (25-35) 31 pg (25-35) Mean Corpuscular Hemoglobin Concent 35 g/dL (31-37) 34 g/dL (31-37) Red Cell Distribution Width 12.9 % (11.5-14.5) 13.0 % (11.5-14.5) Platelet Count 173 x10^3/uL (140-400) 152 x10^3/uL (140-400) Neutrophils (%) (Auto) 89 % (31-73) 85 % (31-73) Lymphocytes (%) (Auto) 4 % (24-48) 6 % (24-48) Monocytes (%) (Auto) 7 % (0-9) 9 % (0-9) Eosinophils (%) (Auto) 0 % (0-3) 0 % (0-3) Basophils (%) (Auto) 0 % (0-3) 0 % (0-3) Neutrophils # (Auto) 11.2 x10^3uL (1.8-7.7) 10.2 x10^3uL (1.8-7.7) Lymphocytes # (Auto) 0.5 x10^3/uL (1.0-4.8) 0.7 x10^3/uL (1.0-4.8) Monocytes # (Auto) 0.9 x10^3/uL (0.0-1.1) 1.1 x10^3/uL (0.0-1.1) Eosinophils # (Auto) 0.0 x10^3/uL (0.0-0.7) 0.0 x10^3/uL (0.0-0.7) Basophils # (Auto) 0.0 x10^3/uL (0.0-0.2) 0.0 x10^3/uL (0.0-0.2) Segmented Neutrophils % 78 % (35-66) Band Neutrophils % 20 % (0-9) Lymphocytes % 1 % (24-48) Monocytes % 1 % (0-10) Platelet Estimate Adequate (ADEQUATE) Sodium Level 135 mmol/L (136-145) 133 mmol/L (136-145) Potassium Level 3.3 mmol/L (3.5-5.1) 3.7 mmol/L (3.5-5.1) Chloride Level 95 mmol/L (98-107) 98 mmol/L (98-107) Carbon Dioxide Level 26 mmol/L (21-32) 24 mmol/L (21-32) Anion Gap 14 (6-14) 11 (6-14) Blood Urea Nitrogen 23 mg/dL (8-26) 26 mg/dL (8-26) Creatinine 2.3 mg/dL (0.7-1.3) 1.5 mg/dL (0.7-1.3) Estimated GFR (Cockcroft-Gault) 31.3 51.3 BUN/Creatinine Ratio 10 (6-20) 17 (6-20) Glucose Level 126 mg/dL (70-99) 108 mg/dL (70-99) Calcium Level 9.9 mg/dL (8.5-10.1) 8.7 mg/dL (8.5-10.1) Total Bilirubin 3.5 mg/dL (0.2-1.0) 1.6 mg/dL (0.2-1.0) Aspartate Amino Transf (AST/SGOT) 36 U/L (15-37) 31 U/L (15-37) Alanine Aminotransferase (ALT/SGPT) 40 U/L (16-63) 32 U/L (16-63) Alkaline Phosphatase 123 U/L (46-116) 79 U/L (46-116) Total Protein 8.6 g/dL (6.4-8.2) 7.0 g/dL (6.4-8.2) Albumin 3.7 g/dL (3.4-5.0) 2.8 g/dL (3.4-5.0) Albumin/Globulin Ratio 0.8 (1.0-1.7) 0.7 (1.0-1.7) Urine Collection Type Unknown Urine Color [place] Urine Clarity Turbid Urine pH 5.0 Urine Specific [place] 1.025 Urine Protein mg/dL (NEG-TRACE) Urine Glucose (UA) mg/dL (NEG) Urine Ketones (Stick) mg/dL (NEG) Urine Blood Large (NEG) Urine Nitrite (NEG) Urine Bilirubin (NEG) Urine Urobilinogen Dipstick mg/dL (0.2 mg/dL) Urine Leukocyte Esterase (NEG) Urine RBC 6-10 /HPF (0-2) Urine WBC >40 /HPF (0-4) Urine Bacteria Moderate /HPF (0-FEW) Prothrombin Time 14.9 SEC (11.7-14.0) Prothromb Time International Ratio 1.2 (0.8-1.1) Lactic Acid Level 1.1 mmol/L (0.4-2.0) Assessment and Plan Assessmemt and Plan Problems Medical Problems: (1) Acute kidney injury Status: Acute (2) Pyelonephritis Status: Acute Comment Review of Relevant I have reviewed the following items sridevi (where applicable) has been applied. Labs Laboratory Tests Test 09/14/18 12:00 09/14/18 13:30 09/15/18 04:00 09/15/18 09:31 White Blood Count 12.6 x10^3/uL (4.0-11.0) 11.9 x10^3/uL (4.0-11.0) Red Blood Count 5.28 x10^6/uL (4.30-5.70) 4.37 x10^6/uL (4.30-5.70) Hemoglobin 16.4 g/dL (13.0-17.5) 13.5 g/dL (13.0-17.5) Hematocrit 47.1 % (39.0-53.0) 39.5 % (39.0-53.0) Mean Corpuscular Volume 89 fL (79-100) 91 fL (79-100) Mean Corpuscular Hemoglobin 31 pg (25-35) 31 pg (25-35) Mean Corpuscular Hemoglobin Concent 35 g/dL (31-37) 34 g/dL (31-37) Red Cell Distribution Width 12.9 % (11.5-14.5) 13.0 % (11.5-14.5) Platelet Count 173 x10^3/uL (140-400) 152 x10^3/uL (140-400) Neutrophils (%) (Auto) 89 % (31-73) 85 % (31-73) Lymphocytes (%) (Auto) 4 % (24-48) 6 % (24-48) Monocytes (%) (Auto) 7 % (0-9) 9 % (0-9) Eosinophils (%) (Auto) 0 % (0-3) 0 % (0-3) Basophils (%) (Auto) 0 % (0-3) 0 % (0-3) Neutrophils # (Auto) 11.2 x10^3uL (1.8-7.7) 10.2 x10^3uL (1.8-7.7) Lymphocytes # (Auto) 0.5 x10^3/uL (1.0-4.8) 0.7 x10^3/uL (1.0-4.8) Monocytes # (Auto) 0.9 x10^3/uL (0.0-1.1) 1.1 x10^3/uL (0.0-1.1) Eosinophils # (Auto) 0.0 x10^3/uL (0.0-0.7) 0.0 x10^3/uL (0.0-0.7) Basophils # (Auto) 0.0 x10^3/uL (0.0-0.2) 0.0 x10^3/uL (0.0-0.2) Segmented Neutrophils % 78 % (35-66) Band Neutrophils % 20 % (0-9) Lymphocytes % 1 % (24-48) Monocytes % 1 % (0-10) Platelet Estimate Adequate (ADEQUATE) Sodium Level 135 mmol/L (136-145) 133 mmol/L (136-145) Potassium Level 3.3 mmol/L (3.5-5.1) 3.7 mmol/L (3.5-5.1) Chloride Level 95 mmol/L (98-107) 98 mmol/L (98-107) Carbon Dioxide Level 26 mmol/L (21-32) 24 mmol/L (21-32) Anion Gap 14 (6-14) 11 (6-14) Blood Urea Nitrogen 23 mg/dL (8-26) 26 mg/dL (8-26) Creatinine 2.3 mg/dL (0.7-1.3) 1.5 mg/dL (0.7-1.3) Estimated GFR (Cockcroft-Gault) 31.3 51.3 BUN/Creatinine Ratio 10 (6-20) 17 (6-20) Glucose Level 126 mg/dL (70-99) 108 mg/dL (70-99) Calcium Level 9.9 mg/dL (8.5-10.1) 8.7 mg/dL (8.5-10.1) Total Bilirubin 3.5 mg/dL (0.2-1.0) 1.6 mg/dL (0.2-1.0) Aspartate Amino Transf (AST/SGOT) 36 U/L (15-37) 31 U/L (15-37) Alanine Aminotransferase (ALT/SGPT) 40 U/L (16-63) 32 U/L (16-63) Alkaline Phosphatase 123 U/L (46-116) 79 U/L (46-116) Total Protein 8.6 g/dL (6.4-8.2) 7.0 g/dL (6.4-8.2) Albumin 3.7 g/dL (3.4-5.0) 2.8 g/dL (3.4-5.0) Albumin/Globulin Ratio 0.8 (1.0-1.7) 0.7 (1.0-1.7) Urine Collection Type Unknown Urine Color [place] Urine Clarity Turbid Urine pH 5.0 Urine Specific [place] 1.025 Urine Protein mg/dL (NEG-TRACE) Urine Glucose (UA) mg/dL (NEG) Urine Ketones (Stick) mg/dL (NEG) Urine Blood Large (NEG) Urine Nitrite (NEG) Urine Bilirubin (NEG) Urine Urobilinogen Dipstick mg/dL (0.2 mg/dL) Urine Leukocyte Esterase (NEG) Urine RBC 6-10 /HPF (0-2) Urine WBC >40 /HPF (0-4) Urine Bacteria Moderate /HPF (0-FEW) Prothrombin Time 14.9 SEC (11.7-14.0) Prothromb Time International Ratio 1.2 (0.8-1.1) Lactic Acid Level 1.1 mmol/L (0.4-2.0) Laboratory Tests Test 09/14/18 12:00 09/14/18 13:30 09/15/18 04:00 09/15/18 09:31 White Blood Count 12.6 x10^3/uL (4.0-11.0) 11.9 x10^3/uL (4.0-11.0) Red Blood Count 5.28 x10^6/uL (4.30-5.70) 4.37 x10^6/uL (4.30-5.70) Hemoglobin 16.4 g/dL (13.0-17.5) 13.5 g/dL (13.0-17.5) Hematocrit 47.1 % (39.0-53.0) 39.5 % (39.0-53.0) Mean Corpuscular Volume 89 fL (79-100) 91 fL (79-100) Mean Corpuscular Hemoglobin 31 pg (25-35) 31 pg (25-35) Mean Corpuscular Hemoglobin Concent 35 g/dL (31-37) 34 g/dL (31-37) Red Cell Distribution Width 12.9 % (11.5-14.5) 13.0 % (11.5-14.5) Platelet Count 173 x10^3/uL (140-400) 152 x10^3/uL (140-400) Neutrophils (%) (Auto) 89 % (31-73) 85 % (31-73) Lymphocytes (%) (Auto) 4 % (24-48) 6 % (24-48) Monocytes (%) (Auto) 7 % (0-9) 9 % (0-9) Eosinophils (%) (Auto) 0 % (0-3) 0 % (0-3) Basophils (%) (Auto) 0 % (0-3) 0 % (0-3) Neutrophils # (Auto) 11.2 x10^3uL (1.8-7.7) 10.2 x10^3uL (1.8-7.7) Lymphocytes # (Auto) 0.5 x10^3/uL (1.0-4.8) 0.7 x10^3/uL (1.0-4.8) Monocytes # (Auto) 0.9 x10^3/uL (0.0-1.1) 1.1 x10^3/uL (0.0-1.1) Eosinophils # (Auto) 0.0 x10^3/uL (0.0-0.7) 0.0 x10^3/uL (0.0-0.7) Basophils # (Auto) 0.0 x10^3/uL (0.0-0.2) 0.0 x10^3/uL (0.0-0.2) Segmented Neutrophils % 78 % (35-66) Band Neutrophils % 20 % (0-9) Lymphocytes % 1 % (24-48) Monocytes % 1 % (0-10) Platelet Estimate Adequate (ADEQUATE) Sodium Level 135 mmol/L (136-145) 133 mmol/L (136-145) Potassium Level 3.3 mmol/L (3.5-5.1) 3.7 mmol/L (3.5-5.1) Chloride Level 95 mmol/L (98-107) 98 mmol/L (98-107) Carbon Dioxide Level 26 mmol/L (21-32) 24 mmol/L (21-32) Anion Gap 14 (6-14) 11 (6-14) Blood Urea Nitrogen 23 mg/dL (8-26) 26 mg/dL (8-26) Creatinine 2.3 mg/dL (0.7-1.3) 1.5 mg/dL (0.7-1.3) Estimated GFR (Cockcroft-Gault) 31.3 51.3 BUN/Creatinine Ratio 10 (6-20) 17 (6-20) Glucose Level 126 mg/dL (70-99) 108 mg/dL (70-99) Calcium Level 9.9 mg/dL (8.5-10.1) 8.7 mg/dL (8.5-10.1) Total Bilirubin 3.5 mg/dL (0.2-1.0) 1.6 mg/dL (0.2-1.0) Aspartate Amino Transf (AST/SGOT) 36 U/L (15-37) 31 U/L (15-37) Alanine Aminotransferase (ALT/SGPT) 40 U/L (16-63) 32 U/L (16-63) Alkaline Phosphatase 123 U/L (46-116) 79 U/L (46-116) Total Protein 8.6 g/dL (6.4-8.2) 7.0 g/dL (6.4-8.2) Albumin 3.7 g/dL (3.4-5.0) 2.8 g/dL (3.4-5.0) Albumin/Globulin Ratio 0.8 (1.0-1.7) 0.7 (1.0-1.7) Urine Collection Type Unknown Urine Color [place] Urine Clarity Turbid Urine pH 5.0 Urine Specific [place] 1.025 Urine Protein mg/dL (NEG-TRACE) Urine Glucose (UA) mg/dL (NEG) Urine Ketones (Stick) mg/dL (NEG) Urine Blood Large (NEG) Urine Nitrite (NEG) Urine Bilirubin (NEG) Urine Urobilinogen Dipstick mg/dL (0.2 mg/dL) Urine Leukocyte Esterase (NEG) Urine RBC 6-10 /HPF (0-2) Urine WBC >40 /HPF (0-4) Urine Bacteria Moderate /HPF (0-FEW) Prothrombin Time 14.9 SEC (11.7-14.0) Prothromb Time International Ratio 1.2 (0.8-1.1) Lactic Acid Level 1.1 mmol/L (0.4-2.0) Medications Current Medications Sodium Chloride 1,000 ml @ 1,000 mls/hr Q1H IV Last administered on 09/14/18at 11:57; Start 09/14/18 at 11:51; Stop 09/14/18 at 12:50; Status DC Ketorolac Tromethamine (Toradol 30mg Vial) 30 mg 1X ONCE IV Last administered on 09/14/18at 12:12; Start 09/14/18 at 12:00; Stop 09/14/18 at 12:01; Status DC Ceftriaxone Sodium (Rocephin) 1 gm 1X ONCE IVP Last administered on 09/14/18at 14:39; Start 09/14/18 at 14:30; Stop 09/14/18 at 14:31; Status DC Ondansetron HCl (Zofran) 4 mg PRN Q8HRS PRN IV NAUSEA/VOMITING; Start 09/14/18 at 15:00; Stop 09/15/18 at 14:59 Morphine Sulfate (Morphine Sulfate) 2 mg PRN Q2HR PRN IV PAIN; Start 09/14/18 at 15:00; Stop 09/15/18 at 14:59 Sodium Chloride 1,000 ml @ 150 mls/hr Q6H40M IV Last administered on 09/15/18at 02:10; Start 09/14/18 at 14:47; Stop 09/15/18 at 14:46 Acetaminophen (Tylenol) 650 mg PRN Q4HRS PRN PO FEVER Last administered on 09/15/18at 07:31; Start 09/14/18 at 15:00; Stop 09/15/18 at 14:59 Multivitamins 10 ml/Thiamine HCl 100 mg/Folic Acid 1 mg/Sodium Chloride 1,011.2 ml @ 100 mls/ hr DAILY IV Last administered on 09/14/18at 15:43; Start 09/14/18 at 16:00; Stop 09/18/18 at 19:07 Multivitamins (Thera M Plus) 1 tab DAILY PO ; Start 09/19/18 at 09:00 Lorazepam (Ativan) 4 mg PRN Q1HR PRN PO For CIWA 8-14 Last administered on 09/14/18at 19:57; Start 09/14/18 at 15:15 Lorazepam (Ativan) 8 mg PRN Q1HR PRN PO For CIWA 15 or greater; Start 09/14/18 at 15:15 Lorazepam (Ativan Inj) 2 mg PRN Q1HR PRN IV For CIWA 8-14 Last administered on 09/15/18at 09:23; Start 09/14/18 at 15:15 Lorazepam (Ativan Inj) 4 mg PRN Q1HR PRN IV For CIWA 15 or greater Last administered on 09/14/18at 23:13; Start 09/14/18 at 15:15 Haloperidol Lactate (Haldol Inj) 5 mg PRN Q4HRS PRN IVP Hallucinatns,Confusn,Delirium; Start 09/14/18 at 15:15 Diphenhydramine HCl (Benadryl) 25 mg PRN Q15MIN PRN IVP EPS symptoms 2'Haldol admin; Start 09/14/18 at 15:15 Clonidine HCl (Catapres) 0.1 mg PRN Q1HR PRN PO SBP > 180 or DBP > 100, MRX3 Last administered on 09/14/18at 20:02; Start 09/14/18 at 15:15 Lorazepam (Ativan Inj) 2 mg PRN Q15MIN PRN IV SEE COMMENTS; Start 09/14/18 at 15:15 Lorazepam (Ativan Inj) 4 mg PRN Q15MIN PRN IV SEE COMMENTS; Start 09/14/18 at 15:15 Ceftriaxone Sodium (Rocephin) 1 gm DAILY IVP ; Start 09/15/18 at 09:00; Stop 09/15/18 at 09:00; Status DC Potassium Chloride (Klor-Con) 40 meq 1X ONCE PO Last administered on 09/14/18at 16:15; Start 09/14/18 at 15:15; Stop 09/14/18 at 15:16; Status DC Piperacillin Sod/ Tazobactam Sod 3.375 gm/Sodium Chloride 50 ml @ 100 mls/hr Q6HRS IV Last administered on 09/15/18at 08:53; Start 09/15/18 at 09:00 Vancomycin HCl 500 mg/Sodium Chloride 100 ml @ 0 mls/hr 1X ONCE IV ; Start 09/15/18 at 08:15; Stop 09/15/18 at 08:16; Status UNV Vancomycin HCl 2 gm/Sodium Chloride 500 ml @ 250 mls/hr 1X ONCE IV Last administered on 09/15/18at 09:54; Start 09/15/18 at 08:15; Stop 09/15/18 at 10:14; Status DC Vancomycin HCl (Vanco Per Pharmacy) 1 each PRN DAILY PRN MC SEE COMMENTS; Start 09/15/18 at 08:30; Stop 09/15/18 at 08:33; Status DC Active Scripts Active Colace (Docusate Sodium) 100 Mg Capsule 1 Cap PO BID Anusol-Hc (Hydrocortisone) 30 Gm Cream..g. 1 Gee TP BID 15 Days Vitals/I & O Vital Sign - Last 24 Hours 09/14/18 09/14/18 09/14/18 09/14/18 11:46 12:40 14:44 15:30 Temp 99.7 99.7 Pulse 101 64 Resp 18 18 18 B/P (MAP) 121/91 (101) 111/73 (86) 115/80 (92) Pulse Ox 95 O2 Delivery Room Air Room Air Room Air 09/14/18 09/14/18 09/14/18 09/14/18 19:00 20:02 20:04 22:59 Temp 98.8 99.0 98.8 99.0 Pulse 116 114 128 Resp 22 20 B/P (MAP) 152/119 (130) 163/119 145/66 (92) Pulse Ox 97 91 O2 Delivery Room Air Room Air Room Air 09/15/18 09/15/18 09/15/18 09/15/18 02:39 07:00 07:43 11:00 Temp 98.8 102.8 99.1 98.8 102.8 99.1 Pulse 95 113 99 Resp 21 12 16 B/P (MAP) 110/67 (81) 120/72 (88) 125/76 (92) Pulse Ox 91 91 92 O2 Delivery Room Air Room Air Room Air Room Air Intake and Output 09/14/18 09/14/18 09/15/18 15:00 23:00 07:00 Intake Total 1000 ml 240 ml Balance 1000 ml 240 ml RANDI TRINIDAD MD Sep 15, 2018 11:46
[2018-09-15] MEDS: MULTIVIT INFUSN,ADULT 4,VIT K 10 ML, THIAMINE INJ 100 MG, FOLIC ACID INJ 1 MG in IV NOR... IV SCH (12:22)
[2018-09-15 15:00] VITALS: BP 136/35
[2018-09-15] MEDS: HYDROcodone/APAP 5/325MG 1 TAB TABLET PO PRN (15:50)
[2018-09-15 19:00] VITALS: BP 143/85
[2018-09-15] MEDS: LACTOBACILLUS RHAMNOSUS GG 1 CAPSULE. PO SCH (20:21)
[2018-09-15 22:39] VITALS: BP 160/99
[2018-09-16] MEDS: IV NORMAL SALINE 1000ML BAG 1,000 ML IV SCH ×3 (00:32→23:30)
[2018-09-16] MEDS: PIPERACILLIN/TAZOBACTAM 3.375 GM in IV NORMAL SALINE 50ML 50 ML IV SCH ×5 (00:33→23:30)
[2018-09-16] MEDS: ACETAMINOPHEN 325 MG TABLET. PO PRN (02:53)
[2018-09-16 03:00] VITALS: BP 143/83
[2018-09-16 07:00] VITALS: BP 144/94
[2018-09-16] MEDS: MULTIVIT INFUSN,ADULT 4,VIT K 10 ML, THIAMINE INJ 100 MG, FOLIC ACID INJ 1 MG in IV NOR... IV SCH (08:51)
[2018-09-16] MEDS: LACTOBACILLUS RHAMNOSUS GG 1 CAPSULE. PO SCH ×2 (08:51→20:12)
[2018-09-16] MEDS: HYDROcodone/APAP 5/325MG 1 TAB TABLET PO PRN (08:52)
[2018-09-16 09:17] LABS: BASO % 0 % (0-3); EOS % 0 % (0-3); HEMATOCRIT 39.6 % (39.0-53.0); HEMOGLOBIN 13.7 g/dL (13.0-17.5); LYMPH # 0.7 x10^3/uL (1.0-4.8); LYMPH % 11 % (24-48); MEAN CORPUSCULAR HEMOGLOBIN 31 pg (25-35); MEAN CORPUSCULAR HGB CONC 35 g/dL (31-37); MEAN CORPUSCULAR VOLUME 89 fL (79-100); MONO # 0.7 x10^3/uL (0.0-1.1); MONO % 11 % (0-9); NEUT # 4.8 x10^3uL (1.8-7.7); NEUT % 78 % (31-73); PLATELET COUNT 150 x10^3/uL (140-400); RED BLOOD COUNT 4.45 x10^6/uL (4.30-5.70); RED CELL DISTRIBUTION WIDTH 13.1 % (11.5-14.5); WHITE BLOOD COUNT 6.2 x10^3/uL (4.0-11.0)
--- NOTE | 2018-09-16 09:31 | PDOC ---
PROGRESS NOTES History of Present Illness History of Present Illness VTE Prophylaxis Ordered VTE Prophylaxis Devices: Yes VTE Pharmacological Prophylaxi: Yes Assessment/Plan Assessment/Plan IMPRESSION: 1. solitary liver and right renal lesion statistically simple cysts in absence of known malignancy. Follow-up CT abdomen with IV contrast can be obtained in 6 months. 2. Enlarged prostate. ON CT IMAGING 3. Circumferential urinary bladder wall thickening with perivesicular fat stranding may be secondary to cystitis. Clinically correlate with urinalysis. 4. UTI 5. SEPSIS 6, ACUTE RENAL FAILURE 7. SEVERE ALCOHOL ABUSE, drinks 12 beers a day 8. thc abuse 9. HYPERTENSION, UNCONTROLLED PLAN ADMIT IV ANTIBIOTICS IV FLUIDS BLOOD AND URINE CULTURES DVT PROPHYLAXIS Nephrology consult po protonix gi prophylaxis urology consult ID FOLLOWING DISCUSSED NEED ETOH CESSATION NORVASC 5 MG PO DAILY 37 min pt exam, chart review, > 50% of time spent with exam, chart review, pt care coordination, disease process education , d/w in room Vitals Vitals Vital Signs Date Time Temp Pulse Resp B/P (MAP) Pulse Ox O2 Delivery O2 Flow Rate FiO2 09/16/18 08:52 16 94 Room Air 09/16/18 07:00 98.5 75 144/94 (111) 2.0 98.5 Physical Exam General: Alert, Oriented X3, Cooperative, No acute distress, mild distress Heart: Regular rate, Normal S1, No murmurs Lungs: Clear Abdomen: Normal bowel sounds, Soft Extremities: No clubbing, No cyanosis, No edema Labs LABS Laboratory Tests Test 09/16/18 08:30 White Blood Count 6.2 x10^3/uL (4.0-11.0) Red Blood Count 4.45 x10^6/uL (4.30-5.70) Hemoglobin 13.7 g/dL (13.0-17.5) Hematocrit 39.6 % (39.0-53.0) Mean Corpuscular Volume 89 fL (79-100) Mean Corpuscular Hemoglobin 31 pg (25-35) Mean Corpuscular Hemoglobin Concent 35 g/dL (31-37) Red Cell Distribution Width 13.1 % (11.5-14.5) Platelet Count 150 x10^3/uL (140-400) Neutrophils (%) (Auto) 78 % (31-73) Lymphocytes (%) (Auto) 11 % (24-48) Monocytes (%) (Auto) 11 % (0-9) Eosinophils (%) (Auto) 0 % (0-3) Basophils (%) (Auto) 0 % (0-3) Neutrophils # (Auto) 4.8 x10^3uL (1.8-7.7) Lymphocytes # (Auto) 0.7 x10^3/uL (1.0-4.8) Monocytes # (Auto) 0.7 x10^3/uL (0.0-1.1) Eosinophils # (Auto) 0.0 x10^3/uL (0.0-0.7) Basophils # (Auto) 0.0 x10^3/uL (0.0-0.2) Assessment and Plan Assessmemt and Plan Problems Medical Problems: (1) Acute kidney injury Status: Acute (2) Pyelonephritis Status: Acute Comment Review of Relevant I have reviewed the following items sridevi (where applicable) has been applied. Labs Laboratory Tests Test 09/14/18 12:00 09/14/18 13:30 09/15/18 04:00 09/15/18 09:31 White Blood Count 12.6 x10^3/uL (4.0-11.0) 11.9 x10^3/uL (4.0-11.0) Red Blood Count 5.28 x10^6/uL (4.30-5.70) 4.37 x10^6/uL (4.30-5.70) Hemoglobin 16.4 g/dL (13.0-17.5) 13.5 g/dL (13.0-17.5) Hematocrit 47.1 % (39.0-53.0) 39.5 % (39.0-53.0) Mean Corpuscular Volume 89 fL (79-100) 91 fL (79-100) Mean Corpuscular Hemoglobin 31 pg (25-35) 31 pg (25-35) Mean Corpuscular Hemoglobin Concent 35 g/dL (31-37) 34 g/dL (31-37) Red Cell Distribution Width 12.9 % (11.5-14.5) 13.0 % (11.5-14.5) Platelet Count 173 x10^3/uL (140-400) 152 x10^3/uL (140-400) Neutrophils (%) (Auto) 89 % (31-73) 85 % (31-73) Lymphocytes (%) (Auto) 4 % (24-48) 6 % (24-48) Monocytes (%) (Auto) 7 % (0-9) 9 % (0-9) Eosinophils (%) (Auto) 0 % (0-3) 0 % (0-3) Basophils (%) (Auto) 0 % (0-3) 0 % (0-3) Neutrophils # (Auto) 11.2 x10^3uL (1.8-7.7) 10.2 x10^3uL (1.8-7.7) Lymphocytes # (Auto) 0.5 x10^3/uL (1.0-4.8) 0.7 x10^3/uL (1.0-4.8) Monocytes # (Auto) 0.9 x10^3/uL (0.0-1.1) 1.1 x10^3/uL (0.0-1.1) Eosinophils # (Auto) 0.0 x10^3/uL (0.0-0.7) 0.0 x10^3/uL (0.0-0.7) Basophils # (Auto) 0.0 x10^3/uL (0.0-0.2) 0.0 x10^3/uL (0.0-0.2) Segmented Neutrophils % 78 % (35-66) Band Neutrophils % 20 % (0-9) Lymphocytes % 1 % (24-48) Monocytes % 1 % (0-10) Platelet Estimate Adequate (ADEQUATE) Sodium Level 135 mmol/L (136-145) 133 mmol/L (136-145) Potassium Level 3.3 mmol/L (3.5-5.1) 3.7 mmol/L (3.5-5.1) Chloride Level 95 mmol/L (98-107) 98 mmol/L (98-107) Carbon Dioxide Level 26 mmol/L (21-32) 24 mmol/L (21-32) Anion Gap 14 (6-14) 11 (6-14) Blood Urea Nitrogen 23 mg/dL (8-26) 26 mg/dL (8-26) Creatinine 2.3 mg/dL (0.7-1.3) 1.5 mg/dL (0.7-1.3) Estimated GFR (Cockcroft-Gault) 31.3 51.3 BUN/Creatinine Ratio 10 (6-20) 17 (6-20) Glucose Level 126 mg/dL (70-99) 108 mg/dL (70-99) Calcium Level 9.9 mg/dL (8.5-10.1) 8.7 mg/dL (8.5-10.1) Total Bilirubin 3.5 mg/dL (0.2-1.0) 1.6 mg/dL (0.2-1.0) Aspartate Amino Transf (AST/SGOT) 36 U/L (15-37) 31 U/L (15-37) Alanine Aminotransferase (ALT/SGPT) 40 U/L (16-63) 32 U/L (16-63) Alkaline Phosphatase 123 U/L (46-116) 79 U/L (46-116) Total Protein 8.6 g/dL (6.4-8.2) 7.0 g/dL (6.4-8.2) Albumin 3.7 g/dL (3.4-5.0) 2.8 g/dL (3.4-5.0) Albumin/Globulin Ratio 0.8 (1.0-1.7) 0.7 (1.0-1.7) Urine Collection Type Unknown Urine Color [place] Urine Clarity Turbid Urine pH 5.0 Urine Specific [place] 1.025 Urine Protein mg/dL (NEG-TRACE) Urine Glucose (UA) mg/dL (NEG) Urine Ketones (Stick) mg/dL (NEG) Urine Blood Large (NEG) Urine Nitrite (NEG) Urine Bilirubin (NEG) Urine Urobilinogen Dipstick mg/dL (0.2 mg/dL) Urine Leukocyte Esterase (NEG) Urine RBC 6-10 /HPF (0-2) Urine WBC >40 /HPF (0-4) Urine Bacteria Moderate /HPF (0-FEW) Prothrombin Time 14.9 SEC (11.7-14.0) Prothromb Time International Ratio 1.2 (0.8-1.1) Lactic Acid Level 1.1 mmol/L (0.4-2.0) Test 09/16/18 08:30 White Blood Count 6.2 x10^3/uL (4.0-11.0) Red Blood Count 4.45 x10^6/uL (4.30-5.70) Hemoglobin 13.7 g/dL (13.0-17.5) Hematocrit 39.6 % (39.0-53.0) Mean Corpuscular Volume 89 fL (79-100) Mean Corpuscular Hemoglobin 31 pg (25-35) Mean Corpuscular Hemoglobin Concent 35 g/dL (31-37) Red Cell Distribution Width 13.1 % (11.5-14.5) Platelet Count 150 x10^3/uL (140-400) Neutrophils (%) (Auto) 78 % (31-73) Lymphocytes (%) (Auto) 11 % (24-48) Monocytes (%) (Auto) 11 % (0-9) Eosinophils (%) (Auto) 0 % (0-3) Basophils (%) (Auto) 0 % (0-3) Neutrophils # (Auto) 4.8 x10^3uL (1.8-7.7) Lymphocytes # (Auto) 0.7 x10^3/uL (1.0-4.8) Monocytes # (Auto) 0.7 x10^3/uL (0.0-1.1) Eosinophils # (Auto) 0.0 x10^3/uL (0.0-0.7) Basophils # (Auto) 0.0 x10^3/uL (0.0-0.2) Laboratory Tests Test 09/16/18 08:30 White Blood Count 6.2 x10^3/uL (4.0-11.0) Red Blood Count 4.45 x10^6/uL (4.30-5.70) Hemoglobin 13.7 g/dL (13.0-17.5) Hematocrit 39.6 % (39.0-53.0) Mean Corpuscular Volume 89 fL (79-100) Mean Corpuscular Hemoglobin 31 pg (25-35) Mean Corpuscular Hemoglobin Concent 35 g/dL (31-37) Red Cell Distribution Width 13.1 % (11.5-14.5) Platelet Count 150 x10^3/uL (140-400) Neutrophils (%) (Auto) 78 % (31-73) Lymphocytes (%) (Auto) 11 % (24-48) Monocytes (%) (Auto) 11 % (0-9) Eosinophils (%) (Auto) 0 % (0-3) Basophils (%) (Auto) 0 % (0-3) Neutrophils # (Auto) 4.8 x10^3uL (1.8-7.7) Lymphocytes # (Auto) 0.7 x10^3/uL (1.0-4.8) Monocytes # (Auto) 0.7 x10^3/uL (0.0-1.1) Eosinophils # (Auto) 0.0 x10^3/uL (0.0-0.7) Basophils # (Auto) 0.0 x10^3/uL (0.0-0.2) Medications Current Medications Sodium Chloride 1,000 ml @ 1,000 mls/hr Q1H IV Last administered on 09/14/18at 11:57; Start 09/14/18 at 11:51; Stop 09/14/18 at 12:50; Status DC Ketorolac Tromethamine (Toradol 30mg Vial) 30 mg 1X ONCE IV Last administered on 09/14/18at 12:12; Start 09/14/18 at 12:00; Stop 09/14/18 at 12:01; Status DC Ceftriaxone Sodium (Rocephin) 1 gm 1X ONCE IVP Last administered on 09/14/18at 14:39; Start 09/14/18 at 14:30; Stop 09/14/18 at 14:31; Status DC Ondansetron HCl (Zofran) 4 mg PRN Q8HRS PRN IV NAUSEA/VOMITING; Start 09/14/18 at 15:00; Stop 09/15/18 at 14:59; Status DC Morphine Sulfate (Morphine Sulfate) 2 mg PRN Q2HR PRN IV PAIN; Start 09/14/18 at 15:00; Stop 09/15/18 at 14:59; Status DC Sodium Chloride 1,000 ml @ 150 mls/hr Q6H40M IV Last administered on 09/15/18at 02:10; Start 09/14/18 at 14:47; Stop 09/15/18 at 14:46; Status DC Acetaminophen (Tylenol) 650 mg PRN Q4HRS PRN PO FEVER Last administered on 09/15/18at 12:20; Start 09/14/18 at 15:00; Stop 09/15/18 at 14:59; Status DC Multivitamins 10 ml/Thiamine HCl 100 mg/Folic Acid 1 mg/Sodium Chloride 1,011.2 ml @ 100 mls/ hr DAILY IV Last administered on 09/16/18at 08:51; Start 09/14/18 at 16:00; Stop 09/18/18 at 19:07 Multivitamins (Thera M Plus) 1 tab DAILY PO ; Start 09/19/18 at 09:00 Lorazepam (Ativan) 4 mg PRN Q1HR PRN PO For CIWA 8-14 Last administered on 09/14/18at 19:57; Start 09/14/18 at 15:15 Lorazepam (Ativan) 8 mg PRN Q1HR PRN PO For CIWA 15 or greater; Start 09/14/18 at 15:15 Lorazepam (Ativan Inj) 2 mg PRN Q1HR PRN IV For CIWA 8-14 Last administered on 09/15/18at 09:23; Start 09/14/18 at 15:15 Lorazepam (Ativan Inj) 4 mg PRN Q1HR PRN IV For CIWA 15 or greater Last administered on 09/14/18at 23:13; Start 09/14/18 at 15:15 Haloperidol Lactate (Haldol Inj) 5 mg PRN Q4HRS PRN IVP Hallucinatns,Confusn,Delirium; Start 09/14/18 at 15:15 Diphenhydramine HCl (Benadryl) 25 mg PRN Q15MIN PRN IVP EPS symptoms 2'Haldol admin; Start 09/14/18 at 15:15 Clonidine HCl (Catapres) 0.1 mg PRN Q1HR PRN PO SBP > 180 or DBP > 100, MRX3 Last administered on 09/14/18at 20:02; Start 09/14/18 at 15:15 Lorazepam (Ativan Inj) 2 mg PRN Q15MIN PRN IV SEE COMMENTS; Start 09/14/18 at 15:15 Lorazepam (Ativan Inj) 4 mg PRN Q15MIN PRN IV SEE COMMENTS; Start 09/14/18 at 15:15 Ceftriaxone Sodium (Rocephin) 1 gm DAILY IVP ; Start 09/15/18 at 09:00; Stop 09/15/18 at 09:00; Status DC Potassium Chloride (Klor-Con) 40 meq 1X ONCE PO Last administered on 09/14/18at 16:15; Start 09/14/18 at 15:15; Stop 09/14/18 at 15:16; Status DC Piperacillin Sod/ Tazobactam Sod 3.375 gm/Sodium Chloride 50 ml @ 100 mls/hr Q6HRS IV Last administered on 09/16/18at 05:52; Start 09/15/18 at 09:00 Vancomycin HCl 500 mg/Sodium Chloride 100 ml @ 0 mls/hr 1X ONCE IV ; Start 09/15/18 at 08:15; Stop 09/15/18 at 08:16; Status UNV Vancomycin HCl 2 gm/Sodium Chloride 500 ml @ 250 mls/hr 1X ONCE IV Last administered on 09/15/18at 09:54; Start 09/15/18 at 08:15; Stop 09/15/18 at 10:14; Status DC Vancomycin HCl (Vanco Per Pharmacy) 1 each PRN DAILY PRN MC SEE COMMENTS; Start 09/15/18 at 08:30; Stop 09/15/18 at 08:33; Status DC Acetaminophen (Tylenol) 650 mg PRN Q6HRS PRN PO MILD PAIN / TEMP Last administered on 09/16/18at 02:53; Start 09/15/18 at 15:15 Lactobacillus Rhamnosus (Culturelle) 1 cap BID PO Last administered on 09/16/18at 08:51; Start 09/15/18 at 21:00 Acetaminophen/ Hydrocodone Bitart (Lortab 5/325) 1 tab PRN Q4HRS PRN PO PAIN Last administered on 09/16/18at 08:52; Start 09/15/18 at 15:45 Sodium Chloride 1,000 ml @ 100 mls/hr Q10H IV Last administered on 09/16/18at 00:32; Start 09/15/18 at 22:30 Active Scripts Active Colace (Docusate Sodium) 100 Mg Capsule 1 Cap PO BID Anusol-Hc (Hydrocortisone) 30 Gm Cream..g. 1 Gee TP BID 15 Days Vitals/I & O Vital Sign - Last 24 Hours 09/15/18 09/15/18 09/15/18 09/15/18 11:00 15:00 15:50 16:50 Temp 99.1 102.6 99.1 102.6 Pulse 99 105 Resp 16 16 B/P (MAP) 125/76 (92) 136/35 (68) Pulse Ox 92 89 O2 Delivery Room Air Room Air Nasal Cannula Nasal Cannula O2 Flow Rate 1.0 09/15/18 09/15/18 09/15/18 09/16/18 19:00 20:00 22:39 03:00 Temp 99.0 99.7 103.1 99.0 99.7 103.1 Pulse 85 86 98 Resp 19 B/P (MAP) 143/85 (104) 160/99 (119) 143/83 (103) Pulse Ox 95 95 92 O2 Delivery Room Air Nasal Cannula Room Air Room Air O2 Flow Rate 1.0 09/16/18 09/16/18 09/16/18 09/16/18 04:30 05:22 07:00 08:52 Temp 101.2 98.5 98.5 101.2 98.5 98.5 Pulse 75 Resp 16 B/P (MAP) 144/94 (111) Pulse Ox 94 94 O2 Delivery Nasal Cannula Room Air O2 Flow Rate 2.0 Intake and Output 09/15/18 09/15/18 09/16/18 15:00 23:00 07:00 Intake Total 480 ml 100 ml 1000 ml Output Total 0 ml Balance 480 ml 100 ml 1000 ml RANDI TRINIDAD MD Sep 16, 2018 09:31
[2018-09-16 10:08] LABS: ALBUMIN 2.4 g/dL (3.4-5.0); ALBUMIN/GLOBULIN RATIO 0.6 (1.0-1.7); CALCIUM 8.2 mg/dL (8.5-10.1); CREATININE 1.1 mg/dL (0.7-1.3); GFR 73.4; POTASSIUM 3.3 mmol/L (3.5-5.1); TOTAL BILIRUBIN 1.4 mg/dL (0.2-1.0); TOTAL PROTEIN 6.5 g/dL (6.4-8.2)
[2018-09-16 11:00] VITALS: BP 151/110
--- NOTE | 2018-09-16 12:08 | PDOC ---
Infectious Disease Note Subjective Subjective Better. No main pain with urination Fever better No DENTON/SOA/Rash or pain with BMs ROS ROS o/w neg Vital Sign Vital Signs Vital Signs Date Time Temp Pulse Resp B/P (MAP) Pulse Ox O2 Delivery O2 Flow Rate FiO2 09/16/18 11:00 98.2 80 19 151/110 (124) 98 Room Air 98.2 09/16/18 07:00 2.0 Physical Exam PHYSICAL EXAM GENERAL: The patient is sitting in the chair, alert, in no apparent distress. Eating HEENT: Pupils equally round. Oropharynx pink, dry. NECK: Supple. LUNGS: Clear to auscultation. HEART: S1 and S2. BACK: Negative CVAT. ABDOMEN: Obese, soft, nontender with bowel sounds present. EXTREMITIES: No gross edema or cyanosis. SKIN: Warm without generalized rash. NEUROLOGIC: Alert and answering questions appropriately. Labs Lab Laboratory Tests Test 09/16/18 08:30 White Blood Count 6.2 x10^3/uL (4.0-11.0) Red Blood Count 4.45 x10^6/uL (4.30-5.70) Hemoglobin 13.7 g/dL (13.0-17.5) Hematocrit 39.6 % (39.0-53.0) Mean Corpuscular Volume 89 fL (79-100) Mean Corpuscular Hemoglobin 31 pg (25-35) Mean Corpuscular Hemoglobin Concent 35 g/dL (31-37) Red Cell Distribution Width 13.1 % (11.5-14.5) Platelet Count 150 x10^3/uL (140-400) Neutrophils (%) (Auto) 78 % (31-73) Lymphocytes (%) (Auto) 11 % (24-48) Monocytes (%) (Auto) 11 % (0-9) Eosinophils (%) (Auto) 0 % (0-3) Basophils (%) (Auto) 0 % (0-3) Neutrophils # (Auto) 4.8 x10^3uL (1.8-7.7) Lymphocytes # (Auto) 0.7 x10^3/uL (1.0-4.8) Monocytes # (Auto) 0.7 x10^3/uL (0.0-1.1) Eosinophils # (Auto) 0.0 x10^3/uL (0.0-0.7) Basophils # (Auto) 0.0 x10^3/uL (0.0-0.2) Sodium Level 136 mmol/L (136-145) Potassium Level 3.3 mmol/L (3.5-5.1) Chloride Level 101 mmol/L (98-107) Carbon Dioxide Level 23 mmol/L (21-32) Anion Gap 12 (6-14) Blood Urea Nitrogen 11 mg/dL (8-26) Creatinine 1.1 mg/dL (0.7-1.3) Estimated GFR (Cockcroft-Gault) 73.4 BUN/Creatinine Ratio 10 (6-20) Glucose Level 129 mg/dL (70-99) Calcium Level 8.2 mg/dL (8.5-10.1) Total Bilirubin 1.4 mg/dL (0.2-1.0) Aspartate Amino Transf (AST/SGOT) 58 U/L (15-37) Alanine Aminotransferase (ALT/SGPT) 41 U/L (16-63) Alkaline Phosphatase 89 U/L (46-116) Total Protein 6.5 g/dL (6.4-8.2) Albumin 2.4 g/dL (3.4-5.0) Albumin/Globulin Ratio 0.6 (1.0-1.7) Micro Microbiology 09/15/18 Blood Culture - Preliminary, Resulted NO GROWTH AFTER 1 DAY Objective Assessment Fever - ? ID vs withdrawl Leukocytosis - better UTI POA CATHERINE Enlarged prostate Heavy alcohol use Plan Plan of Care Zosyn D/c vanc, last dose vanc 09/15. Monitor WBC/temp/renal function & UO closely May need urology eval Hydration f/u cultures Supportive care d/w nursing RAFAEL JIMENEZ MD Sep 16, 2018 12:08
[2018-09-16] MEDS ORDERED: POTASSIUM CHLORIDE 20 MEQ TABLET.ER. PO ONE (14:00)
--- NOTE | 2018-09-16 14:58 | PDOC2 ---
UROLOGY CONSULT Date of Consult Date of Consult DATE: 09/16/18 TIME: 14:47 Reason for Consult Reason for Consult: Gross Hematuria/UTI Referring Physician Referring Physician: Juan Identification/Chief Complaint Chief Complaint Hematuria, UTI, Enlarged Prostate Source Source: Chart review, Patient History of Present Illness Reason for Visit: This pleasant 42 year old male presented through the ER two days ago complaining of bilateral flank pain with subjective fever, sweats as well as nausea and vomiting for three days prior. At the time he was nauseas with the flank pain reaching 5/10.He also had dysuria and gross hematuria, but all of these symptoms have since resolved and he is actually much better today. Prior to this episode, patient reports that today and most of yesterday he has been doing well with no dysuria/frequency, hematuria, feelings of incomplete bladder emptying or nocturia. He has never seen a Urologist to his knowledge. He also denies ever having had a KRUNAL exam. Past Medical History Cardiovascular: Hyperlipidemia Hepatobiliary: No pertinent hx Dermatology: No pertinent hx Family History Family History: High Cholestrol, Hypertension Social History <1 pack per day ALCOHOL: heavy Drugs: None Current Problem List Problems: (1) Gross hematuria (2) Acute kidney injury Current Medications Current Medications Current Medications Acetaminophen (Tylenol) 650 mg PRN Q6HRS PRN PO MILD PAIN / TEMP Last administered on 09/16/18at 02:53; Start 09/15/18 at 15:15 Acetaminophen/ Hydrocodone Bitart (Lortab 5/325) 1 tab PRN Q4HRS PRN PO PAIN Last administered on 09/16/18at 08:52; Start 09/15/18 at 15:45 Amlodipine Besylate (Norvasc) 5 mg DAILY PO ; Start 09/17/18 at 09:00 Lactobacillus Rhamnosus (Culturelle) 1 cap BID PO Last administered on 09/16/18at 08:51; Start 09/15/18 at 21:00 Multivitamins (Thera M Plus) 1 tab DAILY PO ; Start 09/19/18 at 09:00 Potassium Chloride (Klor-Con) 20 meq DAILYWBKFT PO ; Start 09/17/18 at 08:00 Potassium Chloride (Klor-Con) 40 meq 1X ONCE PO ; Start 09/16/18 at 14:00; Stop 09/16/18 at 14:01; Status DC Sodium Chloride 1,000 ml @ 100 mls/hr Q10H IV Last administered on 09/16/18at 12:00; Start 09/15/18 at 22:30 Allergies Allergies: Coded Allergies: No Known Drug Allergies (Unverified , 09/14/18) ROS Review Of Systems: CONSTITUTIONAL: No fever or chills EYES: No recent changes SKIN: No rash or itching CARDIOVASCULAR: No chest pain, syncope, palpitations, or edema RESPIRATORY: No SOB or cough GASTROINTESTINAL: No nausea, vomiting or abdominal pain NEUROLOGICAL: No headaches or weakness ENDOCRINE: No cold or heat intolerance GENITOURINARY: No urgency or frequency of urination MUSCULOSKELETAL: No back pain or joint pain LYMPHATICS: No enlarged lymph nodes PSYCHIATRIC: No anxiety or depression Physical Exam Physical Exam: General: Pleasant, no acute distress, well groomed Eyes: conjunctiva anicteric, eyes full range of motion ENT: moist oral mucosa, normal dentition Neck: Trachea midline, no masses Back: No CVA pain on testing/exam bilaterally Respiratory: unlabored breathing, not using accessory muscles, Abdomen: nontender, nondistended, no hepatosplenomegaly, no masses : PVR 108-116, KRUNAL approximately 50 grams, no other anomalies appreciated Psych: normal mood, affect. Alert and oriented x 3. Vitals VITALS Vital Signs Date Time Temp Pulse Resp B/P (MAP) Pulse Ox O2 Delivery O2 Flow Rate FiO2 09/16/18 11:00 98.2 80 19 151/110 (124) 98 Room Air 98.2 09/16/18 07:00 2.0 Labs Labs Laboratory Tests Test 09/15/18 04:00 09/15/18 09:31 09/16/18 08:30 White Blood Count 11.9 x10^3/uL (4.0-11.0) 6.2 x10^3/uL (4.0-11.0) Red Blood Count 4.37 x10^6/uL (4.30-5.70) 4.45 x10^6/uL (4.30-5.70) Hemoglobin 13.5 g/dL (13.0-17.5) 13.7 g/dL (13.0-17.5) Hematocrit 39.5 % (39.0-53.0) 39.6 % (39.0-53.0) Mean Corpuscular Volume 91 fL (79-100) 89 fL (79-100) Mean Corpuscular Hemoglobin 31 pg (25-35) 31 pg (25-35) Mean Corpuscular Hemoglobin Concent 34 g/dL (31-37) 35 g/dL (31-37) Red Cell Distribution Width 13.0 % (11.5-14.5) 13.1 % (11.5-14.5) Platelet Count 152 x10^3/uL (140-400) 150 x10^3/uL (140-400) Neutrophils (%) (Auto) 85 % (31-73) 78 % (31-73) Lymphocytes (%) (Auto) 6 % (24-48) 11 % (24-48) Monocytes (%) (Auto) 9 % (0-9) 11 % (0-9) Eosinophils (%) (Auto) 0 % (0-3) 0 % (0-3) Basophils (%) (Auto) 0 % (0-3) 0 % (0-3) Neutrophils # (Auto) 10.2 x10^3uL (1.8-7.7) 4.8 x10^3uL (1.8-7.7) Lymphocytes # (Auto) 0.7 x10^3/uL (1.0-4.8) 0.7 x10^3/uL (1.0-4.8) Monocytes # (Auto) 1.1 x10^3/uL (0.0-1.1) 0.7 x10^3/uL (0.0-1.1) Eosinophils # (Auto) 0.0 x10^3/uL (0.0-0.7) 0.0 x10^3/uL (0.0-0.7) Basophils # (Auto) 0.0 x10^3/uL (0.0-0.2) 0.0 x10^3/uL (0.0-0.2) Prothrombin Time 14.9 SEC (11.7-14.0) Prothromb Time International Ratio 1.2 (0.8-1.1) Sodium Level 133 mmol/L (136-145) 136 mmol/L (136-145) Potassium Level 3.7 mmol/L (3.5-5.1) 3.3 mmol/L (3.5-5.1) Chloride Level 98 mmol/L (98-107) 101 mmol/L (98-107) Carbon Dioxide Level 24 mmol/L (21-32) 23 mmol/L (21-32) Anion Gap 11 (6-14) 12 (6-14) Blood Urea Nitrogen 26 mg/dL (8-26) 11 mg/dL (8-26) Creatinine 1.5 mg/dL (0.7-1.3) 1.1 mg/dL (0.7-1.3) Estimated GFR (Cockcroft-Gault) 51.3 73.4 BUN/Creatinine Ratio 17 (6-20) 10 (6-20) Glucose Level 108 mg/dL (70-99) 129 mg/dL (70-99) Calcium Level 8.7 mg/dL (8.5-10.1) 8.2 mg/dL (8.5-10.1) Total Bilirubin 1.6 mg/dL (0.2-1.0) 1.4 mg/dL (0.2-1.0) Aspartate Amino Transf (AST/SGOT) 31 U/L (15-37) 58 U/L (15-37) Alanine Aminotransferase (ALT/SGPT) 32 U/L (16-63) 41 U/L (16-63) Alkaline Phosphatase 79 U/L (46-116) 89 U/L (46-116) Total Protein 7.0 g/dL (6.4-8.2) 6.5 g/dL (6.4-8.2) Albumin 2.8 g/dL (3.4-5.0) 2.4 g/dL (3.4-5.0) Albumin/Globulin Ratio 0.7 (1.0-1.7) 0.6 (1.0-1.7) Lactic Acid Level 1.1 mmol/L (0.4-2.0) Laboratory Tests Test 09/16/18 08:30 White Blood Count 6.2 x10^3/uL (4.0-11.0) Red Blood Count 4.45 x10^6/uL (4.30-5.70) Hemoglobin 13.7 g/dL (13.0-17.5) Hematocrit 39.6 % (39.0-53.0) Mean Corpuscular Volume 89 fL (79-100) Mean Corpuscular Hemoglobin 31 pg (25-35) Mean Corpuscular Hemoglobin Concent 35 g/dL (31-37) Red Cell Distribution Width 13.1 % (11.5-14.5) Platelet Count 150 x10^3/uL (140-400) Neutrophils (%) (Auto) 78 % (31-73) Lymphocytes (%) (Auto) 11 % (24-48) Monocytes (%) (Auto) 11 % (0-9) Eosinophils (%) (Auto) 0 % (0-3) Basophils (%) (Auto) 0 % (0-3) Neutrophils # (Auto) 4.8 x10^3uL (1.8-7.7) Lymphocytes # (Auto) 0.7 x10^3/uL (1.0-4.8) Monocytes # (Auto) 0.7 x10^3/uL (0.0-1.1) Eosinophils # (Auto) 0.0 x10^3/uL (0.0-0.7) Basophils # (Auto) 0.0 x10^3/uL (0.0-0.2) Sodium Level 136 mmol/L (136-145) Potassium Level 3.3 mmol/L (3.5-5.1) Chloride Level 101 mmol/L (98-107) Carbon Dioxide Level 23 mmol/L (21-32) Anion Gap 12 (6-14) Blood Urea Nitrogen 11 mg/dL (8-26) Creatinine 1.1 mg/dL (0.7-1.3) Estimated GFR (Cockcroft-Gault) 73.4 BUN/Creatinine Ratio 10 (6-20) Glucose Level 129 mg/dL (70-99) Calcium Level 8.2 mg/dL (8.5-10.1) Total Bilirubin 1.4 mg/dL (0.2-1.0) Aspartate Amino Transf (AST/SGOT) 58 U/L (15-37) Alanine Aminotransferase (ALT/SGPT) 41 U/L (16-63) Alkaline Phosphatase 89 U/L (46-116) Total Protein 6.5 g/dL (6.4-8.2) Albumin 2.4 g/dL (3.4-5.0) Albumin/Globulin Ratio 0.6 (1.0-1.7) Images Images CT ABD/PELVIS WITHOUT CONTRAST IMPRESSION: 1. Too small to characterize solitary liver and right renal lesion statistically simple cysts in absence of known malignancy. Follow-up CT abdomen with IV contrast can be obtained in 6 months. 2. Enlarged prostate. Clinically correlate with physical exam and PSA. 3. No nephrolithiasis. Circumferential urinary bladder wall thickening with perivesicular fat stranding may be secondary to cystitis. Clinically correlate with urinalysis. Assessment/Plan Assessment/Plan Enlarged prostate-Do not recommend PSA at this time. We will schedule him an appointment for follow up with Dr. Guzman to draw PSA and follow up in 3-4 weeks, once he is fully recovered from this infection. Acute UTI and Pyelo can artificially elevate PSA. Start Flomax for incomplete bladder emptying OF 108-116. Discussed possible side effects of medication with patient. Do not recommend catheter at this time. Repeat UA. Continue antibiotics Will follow. VION JENSEN APRN Sep 16, 2018 14:57
[2018-09-16 15:00] VITALS: BP 155/99
[2018-09-16 16:05] LABS: BILIRUBIN,URINE NEGATIVE (NEG); CLARITY,URINE CLEAR; COLOR,URINE YELLOW; NITRITE,URINE NEGATIVE (NEG); PROTEIN,URINE NEGATIVE (NEG-TRACE)
[2018-09-16 16:24] LABS: BACTERIA,URINE 0 /HPF (0-FEW); SQUAMOUS EPITHELIAL CELL,UR OCC /LPF; WBC,URINE OCC /HPF (0-4)
[2018-09-16] MEDS: TAMSULOSIN 0.4 MG CAP.ER.24H. PO SCH (16:29)
[2018-09-16] MEDS ORDERED: MAGNESIUM HYDROXIDE 2,400 MG/30 ML ORAL.SUSP. PO PRN (18:00)
[2018-09-16 19:00] VITALS: BP 157/100
[2018-09-16 19:21] LABS: CALCIUM 8.1 mg/dL (8.5-10.1); CREATININE 1.1 mg/dL (0.7-1.3); GFR 73.4; POTASSIUM 3.6 mmol/L (3.5-5.1)
[2018-09-16 22:51] VITALS: BP 152/98
[2018-09-17] VITALS (7 sets, daily range): BP systolic 115–131; BP diastolic 56–92
[2018-09-17] MEDS: ACETAMINOPHEN 325 MG TABLET. PO PRN ×3 (03:20→17:31)
[2018-09-17] MEDS: PIPERACILLIN/TAZOBACTAM 3.375 GM in IV NORMAL SALINE 50ML 50 ML IV SCH ×3 (06:18→17:31)
[2018-09-17] MEDS: LACTOBACILLUS RHAMNOSUS GG 1 CAPSULE. PO SCH ×2 (08:02→20:33)
[2018-09-17] MEDS: THIAMINE 100 MG TABLET. PO SCH (08:02)
[2018-09-17] MEDS: amLODIPine BESYLATE 5 MG TABLET PO SCH (08:02)
[2018-09-17] MEDS: TAMSULOSIN 0.4 MG CAP.ER.24H. PO SCH (08:02)
[2018-09-17] MEDS: FOLIC ACID 1 MG TABLET. PO SCH (08:03)
[2018-09-17] MEDS: IV NORMAL SALINE 1000ML BAG 1,000 ML IV SCH ×3 (08:03→21:31)
[2018-09-17] MEDS: POTASSIUM CHLORIDE 20 MEQ TABLET.ER. PO SCH (08:03)
[2018-09-17] MEDS: MULTIVITAMIN with MINERAL TABLET. PO SCH (08:03)
[2018-09-17 08:07] LABS: BASO % 0 % (0-3); EOS # 0.1 x10^3/uL (0.0-0.7); EOS % 1 % (0-3); HEMATOCRIT 40.3 % (39.0-53.0); HEMOGLOBIN 13.6 g/dL (13.0-17.5); LYMPH # 1.1 x10^3/uL (1.0-4.8); LYMPH % 20 % (24-48); MEAN CORPUSCULAR HEMOGLOBIN 30 pg (25-35); MEAN CORPUSCULAR HGB CONC 34 g/dL (31-37); MEAN CORPUSCULAR VOLUME 89 fL (79-100); MONO % 19 % (0-9); NEUT # 3.4 x10^3uL (1.8-7.7); NEUT % 60 % (31-73); PLATELET COUNT 158 x10^3/uL (140-400); RED BLOOD COUNT 4.51 x10^6/uL (4.30-5.70); RED CELL DISTRIBUTION WIDTH 13.1 % (11.5-14.5); WHITE BLOOD COUNT 5.6 x10^3/uL (4.0-11.0)
--- NOTE | 2018-09-17 08:09 | NUR ---
SW following pt for dc planning. Chart reviewed. Pt is from home. ID, urology following pt. No dc recommendation noted at this time.
[2018-09-17 08:18] LABS: CALCIUM 8.4 mg/dL (8.5-10.1); GFR 81.9; POTASSIUM 3.4 mmol/L (3.5-5.1)
--- NOTE | 2018-09-17 09:12 | PDOC ---
PROGRESS NOTES History of Present Illness History of Present Illness VTE Prophylaxis Ordered VTE Prophylaxis Devices: Yes VTE Pharmacological Prophylaxi: Yes Assessment/Plan Assessment/Plan IMPRESSION: 1. solitary liver and right renal lesion statistically simple cysts in absence of known malignancy. Follow-up CT abdomen with IV contrast can be obtained in 6 months. 2. Enlarged prostate. ON CT IMAGING 3. Circumferential urinary bladder wall thickening with perivesicular fat stranding may be secondary to cystitis. Clinically correlate with urinalysis. 4. UTI 5. SEPSIS 6, ACUTE RENAL FAILURE 7. SEVERE ALCOHOL ABUSE, drinks 12 beers a day 8. thc abuse 9. HYPERTENSION, UNCONTROLLED 09/17 still with fever last night 100.4 blood cult neg to date d/w , notes nocturia x 3 prior to admit on average PLAN ADMIT IV ANTIBIOTICS, iv zosyn IV FLUIDS BLOOD AND URINE CULTURES DVT PROPHYLAXIS Nephrology consult po protonix gi prophylaxis urology consult ID FOLLOWING DISCUSSED NEED ETOH CESSATION NORVASC 5 MG PO DAILY appointment for follow up with Dr. Guzman to draw PSA and follow up in 3-4 weeks, once he is fully recovered from this infection. Acute UTI and Pyelo can artificially elevate PSA. Start Flomax for incomplete bladder emptying OF 108-116. Discussed possible side effects of medication with patient. 38 min pt exam, chart review, > 50% of time spent with exam, chart review, pt care coordination, disease process education , d/w in room Vitals Vitals Vital Signs Date Time Temp Pulse Resp B/P (MAP) Pulse Ox O2 Delivery O2 Flow Rate FiO2 09/17/18 08:02 63 127/56 09/17/18 07:00 98.1 19 94 Room Air 98.1 09/16/18 20:00 1.0 Physical Exam Physical Exam GENERAL: The patient is sitting in the chair, alert, in no apparent distress. Eating HEENT: Pupils equally round. Oropharynx pink, dry. NECK: Supple. LUNGS: Clear to auscultation. HEART: S1 and S2. BACK: Negative CVAT. ABDOMEN: Obese, soft, nontender with bowel sounds present. EXTREMITIES: No gross edema or cyanosis. SKIN: Warm without generalized rash. NEUROLOGIC: Alert and answering questions appropriately. General: Alert, Oriented X3, Cooperative, No acute distress Heart: Regular rate, Normal S1, No murmurs Lungs: Clear Abdomen: Normal bowel sounds, Soft Extremities: No clubbing, No cyanosis, No edema Labs LABS ------ SPEC #: [id number] FRANCESCA: 09/15/18 STATUS: RES REQ #: [id number] RECD: 09/15/[address] [facility] [address]: RANDI TRINIDAD MD SOURCE: BLOOD ENTR: 09/15/[address] [facility] [address]: BERNARDO FRANKLIN MD [facility]: ORDERED: BCULT Procedure Result BLOOD CULTURE Preliminary NO GROWTH AFTER 2 DAYS Laboratory Tests Test 09/16/18 15:32 09/16/18 18:23 09/17/18 07:05 Urine Collection Type Unknown Urine Color Yellow Urine Clarity Clear Urine pH 7.0 Urine Specific [place] <=1.005 Urine Protein Negative mg/dL (NEG-TRACE) Urine Glucose (UA) Negative mg/dL (NEG) Urine Ketones (Stick) Negative mg/dL (NEG) Urine Blood Small (NEG) Urine Nitrite Negative (NEG) Urine Bilirubin Negative (NEG) Urine Urobilinogen Dipstick 2.0 mg/dL (0.2 mg/dL) Urine Leukocyte Esterase Trace (NEG) Urine RBC 1-2 /HPF (0-2) Urine WBC Occ /HPF (0-4) Urine Squamous Epithelial Cells Occ /LPF Urine Bacteria 0 /HPF (0-FEW) Sodium Level 134 mmol/L (136-145) 139 mmol/L (136-145) Potassium Level 3.6 mmol/L (3.5-5.1) 3.4 mmol/L (3.5-5.1) Chloride Level 99 mmol/L (98-107) 104 mmol/L (98-107) Carbon Dioxide Level 26 mmol/L (21-32) 23 mmol/L (21-32) Anion Gap 9 (6-14) 12 (6-14) Blood Urea Nitrogen 9 mg/dL (8-26) 9 mg/dL (8-26) Creatinine 1.1 mg/dL (0.7-1.3) 1.0 mg/dL (0.7-1.3) Estimated GFR (Cockcroft-Gault) 73.4 81.9 Glucose Level 97 mg/dL (70-99) 93 mg/dL (70-99) Calcium Level 8.1 mg/dL (8.5-10.1) 8.4 mg/dL (8.5-10.1) White Blood Count 5.6 x10^3/uL (4.0-11.0) Red Blood Count 4.51 x10^6/uL (4.30-5.70) Hemoglobin 13.6 g/dL (13.0-17.5) Hematocrit 40.3 % (39.0-53.0) Mean Corpuscular Volume 89 fL (79-100) Mean Corpuscular Hemoglobin 30 pg (25-35) Mean Corpuscular Hemoglobin Concent 34 g/dL (31-37) Red Cell Distribution Width 13.1 % (11.5-14.5) Platelet Count 158 x10^3/uL (140-400) Neutrophils (%) (Auto) 60 % (31-73) Lymphocytes (%) (Auto) 20 % (24-48) Monocytes (%) (Auto) 19 % (0-9) Eosinophils (%) (Auto) 1 % (0-3) Basophils (%) (Auto) 0 % (0-3) Neutrophils # (Auto) 3.4 x10^3uL (1.8-7.7) Lymphocytes # (Auto) 1.1 x10^3/uL (1.0-4.8) Monocytes # (Auto) 1.0 x10^3/uL (0.0-1.1) Eosinophils # (Auto) 0.1 x10^3/uL (0.0-0.7) Basophils # (Auto) 0.0 x10^3/uL (0.0-0.2) Assessment and Plan Assessmemt and Plan Problems Medical Problems: (1) Acute kidney injury Status: Acute (2) Pyelonephritis Status: Acute Comment Review of Relevant I have reviewed the following items sridevi (where applicable) has been applied. Labs Laboratory Tests Test 09/15/18 09:31 09/16/18 08:30 09/16/18 15:32 09/16/18 18:23 Lactic Acid Level 1.1 mmol/L (0.4-2.0) White Blood Count 6.2 x10^3/uL (4.0-11.0) Red Blood Count 4.45 x10^6/uL (4.30-5.70) Hemoglobin 13.7 g/dL (13.0-17.5) Hematocrit 39.6 % (39.0-53.0) Mean Corpuscular Volume 89 fL (79-100) Mean Corpuscular Hemoglobin 31 pg (25-35) Mean Corpuscular Hemoglobin Concent 35 g/dL (31-37) Red Cell Distribution Width 13.1 % (11.5-14.5) Platelet Count 150 x10^3/uL (140-400) Neutrophils (%) (Auto) 78 % (31-73) Lymphocytes (%) (Auto) 11 % (24-48) Monocytes (%) (Auto) 11 % (0-9) Eosinophils (%) (Auto) 0 % (0-3) Basophils (%) (Auto) 0 % (0-3) Neutrophils # (Auto) 4.8 x10^3uL (1.8-7.7) Lymphocytes # (Auto) 0.7 x10^3/uL (1.0-4.8) Monocytes # (Auto) 0.7 x10^3/uL (0.0-1.1) Eosinophils # (Auto) 0.0 x10^3/uL (0.0-0.7) Basophils # (Auto) 0.0 x10^3/uL (0.0-0.2) Sodium Level 136 mmol/L (136-145) 134 mmol/L (136-145) Potassium Level 3.3 mmol/L (3.5-5.1) 3.6 mmol/L (3.5-5.1) Chloride Level 101 mmol/L (98-107) 99 mmol/L (98-107) Carbon Dioxide Level 23 mmol/L (21-32) 26 mmol/L (21-32) Anion Gap 12 (6-14) 9 (6-14) Blood Urea Nitrogen 11 mg/dL (8-26) 9 mg/dL (8-26) Creatinine 1.1 mg/dL (0.7-1.3) 1.1 mg/dL (0.7-1.3) Estimated GFR (Cockcroft-Gault) 73.4 73.4 BUN/Creatinine Ratio 10 (6-20) Glucose Level 129 mg/dL (70-99) 97 mg/dL (70-99) Calcium Level 8.2 mg/dL (8.5-10.1) 8.1 mg/dL (8.5-10.1) Total Bilirubin 1.4 mg/dL (0.2-1.0) Aspartate Amino Transf (AST/SGOT) 58 U/L (15-37) Alanine Aminotransferase (ALT/SGPT) 41 U/L (16-63) Alkaline Phosphatase 89 U/L (46-116) Total Protein 6.5 g/dL (6.4-8.2) Albumin 2.4 g/dL (3.4-5.0) Albumin/Globulin Ratio 0.6 (1.0-1.7) Urine Collection Type Unknown Urine Color Yellow Urine Clarity Clear Urine pH 7.0 Urine Specific [place] <=1.005 Urine Protein Negative mg/dL (NEG-TRACE) Urine Glucose (UA) Negative mg/dL (NEG) Urine Ketones (Stick) Negative mg/dL (NEG) Urine Blood Small (NEG) Urine Nitrite Negative (NEG) Urine Bilirubin Negative (NEG) Urine Urobilinogen Dipstick 2.0 mg/dL (0.2 mg/dL) Urine Leukocyte Esterase Trace (NEG) Urine RBC 1-2 /HPF (0-2) Urine WBC Occ /HPF (0-4) Urine Squamous Epithelial Cells Occ /LPF Urine Bacteria 0 /HPF (0-FEW) Test 09/17/18 07:05 White Blood Count 5.6 x10^3/uL (4.0-11.0) Red Blood Count 4.51 x10^6/uL (4.30-5.70) Hemoglobin 13.6 g/dL (13.0-17.5) Hematocrit 40.3 % (39.0-53.0) Mean Corpuscular Volume 89 fL (79-100) Mean Corpuscular Hemoglobin 30 pg (25-35) Mean Corpuscular Hemoglobin Concent 34 g/dL (31-37) Red Cell Distribution Width 13.1 % (11.5-14.5) Platelet Count 158 x10^3/uL (140-400) Neutrophils (%) (Auto) 60 % (31-73) Lymphocytes (%) (Auto) 20 % (24-48) Monocytes (%) (Auto) 19 % (0-9) Eosinophils (%) (Auto) 1 % (0-3) Basophils (%) (Auto) 0 % (0-3) Neutrophils # (Auto) 3.4 x10^3uL (1.8-7.7) Lymphocytes # (Auto) 1.1 x10^3/uL (1.0-4.8) Monocytes # (Auto) 1.0 x10^3/uL (0.0-1.1) Eosinophils # (Auto) 0.1 x10^3/uL (0.0-0.7) Basophils # (Auto) 0.0 x10^3/uL (0.0-0.2) Sodium Level 139 mmol/L (136-145) Potassium Level 3.4 mmol/L (3.5-5.1) Chloride Level 104 mmol/L (98-107) Carbon Dioxide Level 23 mmol/L (21-32) Anion Gap 12 (6-14) Blood Urea Nitrogen 9 mg/dL (8-26) Creatinine 1.0 mg/dL (0.7-1.3) Estimated GFR (Cockcroft-Gault) 81.9 Glucose Level 93 mg/dL (70-99) Calcium Level 8.4 mg/dL (8.5-10.1) Laboratory Tests Test 09/16/18 15:32 09/16/18 18:23 09/17/18 07:05 Urine Collection Type Unknown Urine Color Yellow Urine Clarity Clear Urine pH 7.0 Urine Specific [place] <=1.005 Urine Protein Negative mg/dL (NEG-TRACE) Urine Glucose (UA) Negative mg/dL (NEG) Urine Ketones (Stick) Negative mg/dL (NEG) Urine Blood Small (NEG) Urine Nitrite Negative (NEG) Urine Bilirubin Negative (NEG) Urine Urobilinogen Dipstick 2.0 mg/dL (0.2 mg/dL) Urine Leukocyte Esterase Trace (NEG) Urine RBC 1-2 /HPF (0-2) Urine WBC Occ /HPF (0-4) Urine Squamous Epithelial Cells Occ /LPF Urine Bacteria 0 /HPF (0-FEW) Sodium Level 134 mmol/L (136-145) 139 mmol/L (136-145) Potassium Level 3.6 mmol/L (3.5-5.1) 3.4 mmol/L (3.5-5.1) Chloride Level 99 mmol/L (98-107) 104 mmol/L (98-107) Carbon Dioxide Level 26 mmol/L (21-32) 23 mmol/L (21-32) Anion Gap 9 (6-14) 12 (6-14) Blood Urea Nitrogen 9 mg/dL (8-26) 9 mg/dL (8-26) Creatinine 1.1 mg/dL (0.7-1.3) 1.0 mg/dL (0.7-1.3) Estimated GFR (Cockcroft-Gault) 73.4 81.9 Glucose Level 97 mg/dL (70-99) 93 mg/dL (70-99) Calcium Level 8.1 mg/dL (8.5-10.1) 8.4 mg/dL (8.5-10.1) White Blood Count 5.6 x10^3/uL (4.0-11.0) Red Blood Count 4.51 x10^6/uL (4.30-5.70) Hemoglobin 13.6 g/dL (13.0-17.5) Hematocrit 40.3 % (39.0-53.0) Mean Corpuscular Volume 89 fL (79-100) Mean Corpuscular Hemoglobin 30 pg (25-35) Mean Corpuscular Hemoglobin Concent 34 g/dL (31-37) Red Cell Distribution Width 13.1 % (11.5-14.5) Platelet Count 158 x10^3/uL (140-400) Neutrophils (%) (Auto) 60 % (31-73) Lymphocytes (%) (Auto) 20 % (24-48) Monocytes (%) (Auto) 19 % (0-9) Eosinophils (%) (Auto) 1 % (0-3) Basophils (%) (Auto) 0 % (0-3) Neutrophils # (Auto) 3.4 x10^3uL (1.8-7.7) Lymphocytes # (Auto) 1.1 x10^3/uL (1.0-4.8) Monocytes # (Auto) 1.0 x10^3/uL (0.0-1.1) Eosinophils # (Auto) 0.1 x10^3/uL (0.0-0.7) Basophils # (Auto) 0.0 x10^3/uL (0.0-0.2) Microbiology 09/15/18 Blood Culture - Preliminary, Resulted NO GROWTH AFTER 1 DAY Medications Current Medications Sodium Chloride 1,000 ml @ 1,000 mls/hr Q1H IV Last administered on 09/14/18at 11:57; Start 09/14/18 at 11:51; Stop 09/14/18 at 12:50; Status DC Ketorolac Tromethamine (Toradol 30mg Vial) 30 mg 1X ONCE IV Last administered on 09/14/18at 12:12; Start 09/14/18 at 12:00; Stop 09/14/18 at 12:01; Status DC Ceftriaxone Sodium (Rocephin) 1 gm 1X ONCE IVP Last administered on 09/14/18at 14:39; Start 09/14/18 at 14:30; Stop 09/14/18 at 14:31; Status DC Ondansetron HCl (Zofran) 4 mg PRN Q8HRS PRN IV NAUSEA/VOMITING; Start 09/14/18 at 15:00; Stop 09/15/18 at 14:59; Status DC Morphine Sulfate (Morphine Sulfate) 2 mg PRN Q2HR PRN IV PAIN; Start 09/14/18 at 15:00; Stop 09/15/18 at 14:59; Status DC Sodium Chloride 1,000 ml @ 150 mls/hr Q6H40M IV Last administered on 09/15/18at 02:10; Start 09/14/18 at 14:47; Stop 09/15/18 at 14:46; Status DC Acetaminophen (Tylenol) 650 mg PRN Q4HRS PRN PO FEVER Last administered on 09/15/18at 12:20; Start 09/14/18 at 15:00; Stop 09/15/18 at 14:59; Status DC Multivitamins 10 ml/Thiamine HCl 100 mg/Folic Acid 1 mg/Sodium Chloride 1,011.2 ml @ 100 mls/ hr DAILY IV Last administered on 09/16/18at 08:51; Start 09/14/18 at 16:00; Stop 09/16/18 at 23:16; Status DC Multivitamins (Thera M Plus) 1 tab DAILY PO Last administered on 09/17/18at 08:03; Start 09/17/18 at 09:00 Lorazepam (Ativan) 4 mg PRN Q1HR PRN PO For CIWA 8-14 Last administered on 09/14/18at 19:57; Start 09/14/18 at 15:15 Lorazepam (Ativan) 8 mg PRN Q1HR PRN PO For CIWA 15 or greater; Start 09/14/18 at 15:15 Lorazepam (Ativan Inj) 2 mg PRN Q1HR PRN IV For CIWA 8-14 Last administered on 09/15/18at 09:23; Start 09/14/18 at 15:15 Lorazepam (Ativan Inj) 4 mg PRN Q1HR PRN IV For CIWA 15 or greater Last administered on 09/14/18at 23:13; Start 09/14/18 at 15:15 Haloperidol Lactate (Haldol Inj) 5 mg PRN Q4HRS PRN IVP Hallucinatns,Confusn,Delirium; Start 09/14/18 at 15:15 Diphenhydramine HCl (Benadryl) 25 mg PRN Q15MIN PRN IVP EPS symptoms 2'Haldol admin; Start 09/14/18 at 15:15 Clonidine HCl (Catapres) 0.1 mg PRN Q1HR PRN PO SBP > 180 or DBP > 100, MRX3 Last administered on 09/14/18at 20:02; Start 09/14/18 at 15:15 Lorazepam (Ativan Inj) 2 mg PRN Q15MIN PRN IV SEE COMMENTS; Start 09/14/18 at 15:15 Lorazepam (Ativan Inj) 4 mg PRN Q15MIN PRN IV SEE COMMENTS; Start 09/14/18 at 15:15 Ceftriaxone Sodium (Rocephin) 1 gm DAILY IVP ; Start 09/15/18 at 09:00; Stop 09/15/18 at 09:00; Status DC Potassium Chloride (Klor-Con) 40 meq 1X ONCE PO Last administered on 09/14/18at 16:15; Start 09/14/18 at 15:15; Stop 09/14/18 at 15:16; Status DC Piperacillin Sod/ Tazobactam Sod 3.375 gm/Sodium Chloride 50 ml @ 100 mls/hr Q6HRS IV Last administered on 09/17/18at 06:18; Start 09/15/18 at 09:00 Vancomycin HCl 500 mg/Sodium Chloride 100 ml @ 0 mls/hr 1X ONCE IV ; Start 09/15/18 at 08:15; Stop 09/15/18 at 08:16; Status UNV Vancomycin HCl 2 gm/Sodium Chloride 500 ml @ 250 mls/hr 1X ONCE IV Last administered on 09/15/18at 09:54; Start 09/15/18 at 08:15; Stop 09/15/18 at 10:14; Status DC Vancomycin HCl (Vanco Per Pharmacy) 1 each PRN DAILY PRN MC SEE COMMENTS; Start 09/15/18 at 08:30; Stop 09/15/18 at 08:33; Status DC Acetaminophen (Tylenol) 650 mg PRN Q6HRS PRN PO MILD PAIN / TEMP Last administered on 09/17/18at 03:20; Start 09/15/18 at 15:15 Lactobacillus Rhamnosus (Culturelle) 1 cap BID PO Last administered on 09/17/18 08:02; Start 09/15/18 at 21:00 Acetaminophen/ Hydrocodone Bitart (Lortab 5/325) 1 tab PRN Q4HRS PRN PO PAIN Last administered on 09/16/18 08:52; Start 09/15/18 at 15:45 Sodium Chloride 1,000 ml @ 100 mls/hr Q10H IV Last administered on 09/17/18 08:03; Start 09/15/18 at 22:30 Potassium Chloride (Klor-Con) 40 meq 1X ONCE PO Last administered on 09/16/18 14:57; Start 09/16/18 at 14:00; Stop 09/16/18 at 14:01; Status DC Potassium Chloride (Klor-Con) 20 meq DAILYWBKFT PO Last administered on 09/17/18 08:03; Start 09/17/18 at 08:00 Amlodipine Besylate (Norvasc) 5 mg DAILY PO Last administered on 09/17/18 08:02; Start 09/17/18 at 09:00 Tamsulosin HCl (Flomax) 0.4 mg DAILY PO Last administered on 09/17/18 08:02; Start 09/16/18 at 15:30 Magnesium Hydroxide (Milk Of Magnesia) 2,400 mg PRN DAILY PRN PO CONSTIPATION; Start 09/16/18 at 18:00 Folic Acid (Folic Acid) 1 mg DAILY PO Last administered on 09/17/18 08:03; Start 09/17/18 at 09:00 Thiamine Mononitrate (Vitamin B-1) 100 mg DAILY PO Last administered on 09/17/18 08:02; Start 09/17/18 at 09:00 Active Scripts Active Colace (Docusate Sodium) 100 Mg Capsule 1 Cap PO BID Anusol-Hc (Hydrocortisone) 30 Gm Cream..g. 1 Gee TP BID 15 Days Vitals/I & O Vital Sign - Last 24 Hours 09/16/18 09/16/18 09/16/18 09/16/18 09:52 11:00 15:00 19:00 Temp 98.2 99.3 99.8 98.2 99.3 99.8 Pulse 80 78 81 Resp 20 19 16 18 B/P (MAP) 151/110 (124) 155/99 (117) 157/100 (119) Pulse Ox 98 98 97 97 O2 Delivery Room Air Room Air Room Air Room Air 09/16/18 09/16/18 09/17/18 09/17/18 20:00 22:51 02:54 07:00 Temp 100.3 100.4 98.1 100.3 100.4 98.1 Pulse 78 74 63 Resp 18 18 19 B/P (MAP) 152/98 (116) 131/92 (105) 127/56 (79) Pulse Ox 97 97 94 O2 Delivery Room Air Room Air Room Air Room Air O2 Flow Rate 1.0 09/17/18 08:02 Pulse 63 B/P (MAP) 127/56 Intake and Output 0 09/16/18 09/16/18 09/17/18 15:00 23:00 07:00 Intake Total 360 ml 360 ml 1050 ml Output Total 1400 ml 700 ml 1875 ml Balance -1040 ml -340 ml -825 ml RANDI TRINIDAD MD Sep 17, 2018 09:12
--- NOTE | 2018-09-17 10:00 | PDOC ---
Infectious Disease Note Subjective Subjective Better. No main pain with urination Fever better No DENTON/SOA/Rash or pain with BMs Vital Sign Vital Signs Vital Signs Date Time Temp Pulse Resp B/P (MAP) Pulse Ox O2 Delivery O2 Flow Rate FiO2 09/17/18 08:02 63 127/56 09/17/18 08:00 Room Air 09/17/18 07:00 98.1 19 94 98.1 09/16/18 20:00 1.0 Physical Exam PHYSICAL EXAM GENERAL: The patient is sitting in bed alert, in no apparent distress. HEENT: Pupils equally round. Oropharynx pink, dry. NECK: Supple. LUNGS: Clear to auscultation. HEART: S1 and S2. BACK: Negative CVAT. ABDOMEN: Obese, soft, nontender with bowel sounds present. EXTREMITIES: No gross edema or cyanosis. SKIN: Warm without generalized rash. NEUROLOGIC: Alert and answering questions appropriately. Labs Lab Laboratory Tests Test 09/16/18 15:32 09/16/18 18:23 09/17/18 07:05 Urine Collection Type Unknown Urine Color Yellow Urine Clarity Clear Urine pH 7.0 Urine Specific [place] <=1.005 Urine Protein Negative mg/dL (NEG-TRACE) Urine Glucose (UA) Negative mg/dL (NEG) Urine Ketones (Stick) Negative mg/dL (NEG) Urine Blood Small (NEG) Urine Nitrite Negative (NEG) Urine Bilirubin Negative (NEG) Urine Urobilinogen Dipstick 2.0 mg/dL (0.2 mg/dL) Urine Leukocyte Esterase Trace (NEG) Urine RBC 1-2 /HPF (0-2) Urine WBC Occ /HPF (0-4) Urine Squamous Epithelial Cells Occ /LPF Urine Bacteria 0 /HPF (0-FEW) Sodium Level 134 mmol/L (136-145) 139 mmol/L (136-145) Potassium Level 3.6 mmol/L (3.5-5.1) 3.4 mmol/L (3.5-5.1) Chloride Level 99 mmol/L (98-107) 104 mmol/L (98-107) Carbon Dioxide Level 26 mmol/L (21-32) 23 mmol/L (21-32) Anion Gap 9 (6-14) 12 (6-14) Blood Urea Nitrogen 9 mg/dL (8-26) 9 mg/dL (8-26) Creatinine 1.1 mg/dL (0.7-1.3) 1.0 mg/dL (0.7-1.3) Estimated GFR (Cockcroft-Gault) 73.4 81.9 Glucose Level 97 mg/dL (70-99) 93 mg/dL (70-99) Calcium Level 8.1 mg/dL (8.5-10.1) 8.4 mg/dL (8.5-10.1) White Blood Count 5.6 x10^3/uL (4.0-11.0) Red Blood Count 4.51 x10^6/uL (4.30-5.70) Hemoglobin 13.6 g/dL (13.0-17.5) Hematocrit 40.3 % (39.0-53.0) Mean Corpuscular Volume 89 fL (79-100) Mean Corpuscular Hemoglobin 30 pg (25-35) Mean Corpuscular Hemoglobin Concent 34 g/dL (31-37) Red Cell Distribution Width 13.1 % (11.5-14.5) Platelet Count 158 x10^3/uL (140-400) Neutrophils (%) (Auto) 60 % (31-73) Lymphocytes (%) (Auto) 20 % (24-48) Monocytes (%) (Auto) 19 % (0-9) Eosinophils (%) (Auto) 1 % (0-3) Basophils (%) (Auto) 0 % (0-3) Neutrophils # (Auto) 3.4 x10^3uL (1.8-7.7) Lymphocytes # (Auto) 1.1 x10^3/uL (1.0-4.8) Monocytes # (Auto) 1.0 x10^3/uL (0.0-1.1) Eosinophils # (Auto) 0.1 x10^3/uL (0.0-0.7) Basophils # (Auto) 0.0 x10^3/uL (0.0-0.2) Micro Microbiology 09/15/18 Blood Culture - Preliminary, Resulted NO GROWTH AFTER 1 DAY Objective Assessment Fever - ? ID vs withdrawl - overall curve is better Leukocytosis - better UTI POA CATHERINE Enlarged prostate Heavy alcohol use Plan Plan of Care Cont Zosyn hopeful change to po when cults available Monitor WBC/temp/renal function & UO closely f/u cultures Supportive care d/w nursing RAFAEL JIMENEZ MD Sep 17, 2018 10:00
--- NOTE | 2018-09-17 10:33 | NUR ---
free text nursing order by Dr. Guzman to bladder scan patient and call if over 150. This RN bladder scanned patient right after use of urinal, and highest amount scanned was 18.
[2018-09-17] MEDS ORDERED: POTASSIUM CHLORIDE 20 MEQ TABLET.ER. PO ONE (14:00)
[2018-09-18] MEDS: PIPERACILLIN/TAZOBACTAM 3.375 GM in IV NORMAL SALINE 50ML 50 ML IV SCH ×4 (00:02→18:15)
[2018-09-18 03:00] VITALS: BP 129/87
[2018-09-18 04:13] LABS: BASO % 0 % (0-3); EOS # 0.1 x10^3/uL (0.0-0.7); EOS % 1 % (0-3); HEMATOCRIT 41.4 % (39.0-53.0); HEMOGLOBIN 14.3 g/dL (13.0-17.5); LYMPH # 1.4 x10^3/uL (1.0-4.8); LYMPH % 20 % (24-48); MEAN CORPUSCULAR HEMOGLOBIN 31 pg (25-35); MEAN CORPUSCULAR HGB CONC 35 g/dL (31-37); MEAN CORPUSCULAR VOLUME 89 fL (79-100); MONO # 1.4 x10^3/uL (0.0-1.1); MONO % 20 % (0-9); NEUT # 4.2 x10^3uL (1.8-7.7); NEUT % 59 % (31-73); PLATELET COUNT 189 x10^3/uL (140-400); RED BLOOD COUNT 4.64 x10^6/uL (4.30-5.70); RED CELL DISTRIBUTION WIDTH 13.2 % (11.5-14.5); WHITE BLOOD COUNT 7.1 x10^3/uL (4.0-11.0)
[2018-09-18 04:22] LABS: CALCIUM 8.6 mg/dL (8.5-10.1); GFR 81.9; POTASSIUM 4.3 mmol/L (3.5-5.1)
[2018-09-18 07:00] VITALS: BP 140/86
[2018-09-18] MEDS ORDERED: POTASSIUM CHLORIDE 20 MEQ TABLET.ER. PO SCH (08:00)
[2018-09-18] MEDS: IV NORMAL SALINE 1000ML BAG 1,000 ML IV SCH ×2 (08:19→19:47)
[2018-09-18] MEDS: THIAMINE 100 MG TABLET. PO SCH (08:20)
[2018-09-18] MEDS: LACTOBACILLUS RHAMNOSUS GG 1 CAPSULE. PO SCH ×2 (08:20→22:24)
[2018-09-18] MEDS: amLODIPine BESYLATE 5 MG TABLET PO SCH (08:20)
[2018-09-18] MEDS: MULTIVITAMIN with MINERAL TABLET. PO SCH (08:20)
[2018-09-18] MEDS: TAMSULOSIN 0.4 MG CAP.ER.24H. PO SCH (08:20)
[2018-09-18] MEDS: POTASSIUM CHLORIDE 20 MEQ TABLET.ER. PO SCH (08:20)
[2018-09-18] MEDS: FOLIC ACID 1 MG TABLET. PO SCH (08:21)
--- NOTE | 2018-09-18 09:13 | PDOC ---
SUBJECTIVE Subjective Pt doing well this am, no pain or voiding problems. He thinks that the Flomax is already helping him to empty his bladder a little better; no dizziness from the medication. OBJECTIVE Objective Physical Exam: General appearance: Alert and Oriented Head: Normocephalic, without obvious abnormality Eyes: conjunctivae/corneas clear. PERRL, EOM's intact. Fundi benign Back: negative Lungs: Regular respirations, non labored breathing Abdomen: soft, non-tender.. No masses, no organomegaly Pscyh: Cooperative, appropriate Vital Signs Vital Signs Date Time Temp Pulse Resp B/P (MAP) Pulse Ox O2 Delivery O2 Flow Rate FiO2 09/18/18 08:20 71 140/86 09/18/18 07:00 98.3 71 16 140/86 (104) 98 Room Air 98.3 09/18/18 03:00 98.8 72 20 129/87 (101) 96 Room Air 98.8 09/17/18 23:01 98.5 68 20 126/88 (101) 95 Room Air 98.5 09/17/18 20:00 Room Air 09/17/18 19:00 98.3 65 20 125/86 (99) 95 Room Air 98.3 09/17/18 15:00 98.4 66 19 119/81 (94) 95 Room Air 98.4 09/17/18 11:00 98.4 77 19 115/80 (92) 96 Room Air 98.4 I & O Intake and Output 09/18/18 06:59 Intake Total 1700 ml Output Total 0 ml Balance 1700 ml Intake Oral 700 ml IV Total 1000 ml Output Urine Total 0 ml # Voids 5 PHYSICAL EXAM Physical Exam Physical Exam: General appearance: Alert and Oriented Head: Normocephalic, without obvious abnormality Eyes: conjunctivae/corneas clear. PERRL, EOM's intact. Fundi benign Back: negative Lungs: Regular respirations, non labored breathing Abdomen: soft, non-tender.. No masses, no organomegaly Pscyh: Cooperative, appropriate ASSESSMENT/PLAN Assessment/Plan Patient doing well this am, would like to go home. Is agreeable to seeing Dr. Guzman for follow up on BPH/incomplete bladder emptying. A follow up appointment has been arranged for him to see Dr. Guzman on 10/14/18 at 1020 am. Appointment card and new patient paperwork given to patient. Continue Flomax, recommend he continue this as an outpatient Urine culture is negative from 09/16. Could go home from a Urology perspective, but will follow peripherally while in house. COMMENT Lab Laboratory Tests Test 09/18/18 03:40 White Blood Count 7.1 x10^3/uL (4.0-11.0) Red Blood Count 4.64 x10^6/uL (4.30-5.70) Hemoglobin 14.3 g/dL (13.0-17.5) Hematocrit 41.4 % (39.0-53.0) Mean Corpuscular Volume 89 fL (79-100) Mean Corpuscular Hemoglobin 31 pg (25-35) Mean Corpuscular Hemoglobin Concent 35 g/dL (31-37) Red Cell Distribution Width 13.2 % (11.5-14.5) Platelet Count 189 x10^3/uL (140-400) Neutrophils (%) (Auto) 59 % (31-73) Lymphocytes (%) (Auto) 20 % (24-48) Monocytes (%) (Auto) 20 % (0-9) Eosinophils (%) (Auto) 1 % (0-3) Basophils (%) (Auto) 0 % (0-3) Neutrophils # (Auto) 4.2 x10^3uL (1.8-7.7) Lymphocytes # (Auto) 1.4 x10^3/uL (1.0-4.8) Monocytes # (Auto) 1.4 x10^3/uL (0.0-1.1) Eosinophils # (Auto) 0.1 x10^3/uL (0.0-0.7) Basophils # (Auto) 0.0 x10^3/uL (0.0-0.2) Sodium Level 138 mmol/L (136-145) Potassium Level 4.3 mmol/L (3.5-5.1) Chloride Level 102 mmol/L (98-107) Carbon Dioxide Level 26 mmol/L (21-32) Anion Gap 10 (6-14) Blood Urea Nitrogen 8 mg/dL (8-26) Creatinine 1.0 mg/dL (0.7-1.3) Estimated GFR (Cockcroft-Gault) 81.9 Glucose Level 99 mg/dL (70-99) Calcium Level 8.6 mg/dL (8.5-10.1) IVON JENSEN APRN Sep 18, 2018 09:13
--- NOTE | 2018-09-18 09:59 | PDOC ---
Infectious Disease Note Subjective Subjective Better. No main pain with urination Fever gone No DENTON/SOA/Rash or pain with BMs ROS ROS o/w neg Vital Sign Vital Signs Vital Signs Date Time Temp Pulse Resp B/P (MAP) Pulse Ox O2 Delivery O2 Flow Rate FiO2 09/18/18 08:20 71 140/86 09/18/18 07:00 98.3 16 98 Room Air 98.3 Physical Exam PHYSICAL EXAM GENERAL: The patient is sitting in bed alert, in no apparent distress. HEENT: Pupils equally round. Oropharynx pink, dry. NECK: Supple. LUNGS: Clear to auscultation. HEART: S1 and S2. BACK: Negative CVAT. ABDOMEN: Obese, soft, nontender with bowel sounds present. EXTREMITIES: No gross edema or cyanosis. SKIN: Warm without generalized rash. NEUROLOGIC: Alert and answering questions appropriately. Labs Lab Laboratory Tests Test 09/18/18 03:40 White Blood Count 7.1 x10^3/uL (4.0-11.0) Red Blood Count 4.64 x10^6/uL (4.30-5.70) Hemoglobin 14.3 g/dL (13.0-17.5) Hematocrit 41.4 % (39.0-53.0) Mean Corpuscular Volume 89 fL (79-100) Mean Corpuscular Hemoglobin 31 pg (25-35) Mean Corpuscular Hemoglobin Concent 35 g/dL (31-37) Red Cell Distribution Width 13.2 % (11.5-14.5) Platelet Count 189 x10^3/uL (140-400) Neutrophils (%) (Auto) 59 % (31-73) Lymphocytes (%) (Auto) 20 % (24-48) Monocytes (%) (Auto) 20 % (0-9) Eosinophils (%) (Auto) 1 % (0-3) Basophils (%) (Auto) 0 % (0-3) Neutrophils # (Auto) 4.2 x10^3uL (1.8-7.7) Lymphocytes # (Auto) 1.4 x10^3/uL (1.0-4.8) Monocytes # (Auto) 1.4 x10^3/uL (0.0-1.1) Eosinophils # (Auto) 0.1 x10^3/uL (0.0-0.7) Basophils # (Auto) 0.0 x10^3/uL (0.0-0.2) Sodium Level 138 mmol/L (136-145) Potassium Level 4.3 mmol/L (3.5-5.1) Chloride Level 102 mmol/L (98-107) Carbon Dioxide Level 26 mmol/L (21-32) Anion Gap 10 (6-14) Blood Urea Nitrogen 8 mg/dL (8-26) Creatinine 1.0 mg/dL (0.7-1.3) Estimated GFR (Cockcroft-Gault) 81.9 Glucose Level 99 mg/dL (70-99) Calcium Level 8.6 mg/dL (8.5-10.1) Micro Microbiology 09/15/18 Blood Culture - Preliminary, Resulted NO GROWTH AFTER 1 DAY Objective Assessment Fever - ? ID vs withdrawl - resolved Leukocytosis - better UTI POA - Ecoli Sens pending CATHERINE Enlarged prostate Heavy alcohol use Plan Plan of Care Cont Zosyn hopeful change to po when cults available - d/w [facility] this am. No sensitivities yet Monitor WBC/temp/renal function & UO closely f/u cultures Supportive care d/w nursing RAFAEL JIMENEZ MD Sep 18, 2018 09:59
--- NOTE | 2018-09-18 10:15 | PDOC ---
PROGRESS NOTES History of Present Illness History of Present Illness VTE Prophylaxis Ordered VTE Prophylaxis Devices: Yes VTE Pharmacological Prophylaxi: Yes Assessment/Plan Assessment/Plan IMPRESSION: 1. solitary liver and right renal lesion statistically simple cysts in absence of known malignancy. Follow-up CT abdomen with IV contrast can be obtained in 6 months. 2. Enlarged prostate. ON CT IMAGING 3. Circumferential urinary bladder wall thickening with perivesicular fat stranding may be secondary to cystitis. Clinically correlate with urinalysis. 4. UTI 5. SEPSIS URINE CULTURE RES 1 Preliminary Escherichia coli Greater than 100,000 colony forming units per mL BLOOD CULTURE Preliminary NO GROWTH AFTER 3 DAYS 6, ACUTE RENAL FAILURE, IMPROVED 7. SEVERE ALCOHOL ABUSE, drinks 12 beers a day 8. thc abuse 9. HYPERTENSION, UNCONTROLLED 10. severe protein-caloric malnutrition 09/17 still with fever last night 100.4 blood cult neg to date d/w , notes nocturia x 3 prior to admit on average 09/18 urine sensitivies pending e coli PLAN ADMIT cont iv zosyn IV FLUIDS BLOOD AND URINE CULTURES DVT PROPHYLAXIS Nephrology consult po protonix gi prophylaxis urology following ID FOLLOWING DISCUSSED NEED ETOH CESSATION NORVASC 5 MG PO DAILY consult GI LIVER LESION, ETOH ABUSE appointment for follow up with Dr. Guzman to draw PSA and follow up in 3-4 weeks, once he is fully recovered from this infection. Acute UTI and Pyelo can artificially elevate PSA. Start Flomax for incomplete bladder emptying OF 108-116. Discussed possible side effects of medication with patient. 27 min pt exam, chart review, > 50% of time spent with exam, chart review, pt care coordination, disease process education , d/w in room Vitals Vitals Vital Signs Date Time Temp Pulse Resp B/P (MAP) Pulse Ox O2 Delivery O2 Flow Rate FiO2 09/18/18 08:20 71 140/86 09/18/18 07:00 98.3 16 98 Room Air 98.3 Physical Exam Physical Exam GENERAL: The patient is sitting in bed alert, in no apparent distress. HEENT: Pupils equally round. Oropharynx pink, dry. NECK: Supple. LUNGS: Clear to auscultation. HEART: S1 and S2. BACK: Negative CVAT. ABDOMEN: Obese, soft, nontender with bowel sounds present. EXTREMITIES: No gross edema or cyanosis. SKIN: Warm without generalized rash. NEUROLOGIC: Alert and answering questions appropriately. General: Alert, Oriented X3, Cooperative, No acute distress Heart: Regular rate, Normal S1, Normal S2, No murmurs Lungs: Clear Abdomen: Normal bowel sounds, Soft, No tenderness Extremities: No clubbing, No cyanosis, No edema Skin: No breakdown Labs LABS PATIENT: SOLANGE HERNANDEZ ACCT: [id number] LOC: [address] [place] [place] [address] U: [id number] AGE/SX: 42/M ROOM: [facility] RE09/14/[address]: RANDI TRINIDAD MD : 1975 BED: 1 DIS: STATUS: ADM IN TLOC: SPEC #: [id number] FRANCESCA: 09/15/18 STATUS: RES REQ #: [id number] RECD: 09/15/[address] [facility] [address]: RANDI TRINIDAD MD SOURCE: BLOOD ENTR: [id number]/15/[id number] OT DR: BERNARDO FRANKLIN MD [facility]: ORDERED: BCULT Procedure Result ------ BLOOD CULTURE Preliminary NO GROWTH AFTER 3 DAYS Indication:Bilateral flank pain. TECHNIQUE: CT abdomen and pelvis without IV contrast with multiplanar reformats. COMPARISON: None FINDINGS: Limited evaluation of solid abdominal and pelvic organs due to lack of IV contrast. Heart is normal in size. No pericardial or pleural effusion. Clear lung bases. Too small to characterize low attenuating lesion is seen in segment 2/4 a junction (series 2 image 61). Otherwise, noncontrast appearance of the liver, spleen, gallbladder, pancreas, adrenals within normal limits. 6 cm partially exophytic too small to characterize low attenuating lesion in the right kidney. No nephrolithiasis or hydronephrosis. No enlarged retroperitoneal or pelvic adenopathy. No free pelvic fluid or ascites. Prostate is enlarged measuring 6.3 x 5.3 cm. Urinary bladder is decompressed without radiopaque stone. Small fat-containing left inguinal hernia. Inflammatory changes are seen in the perivascular fat. No bowel obstruction. Normal appendix. No pneumoperitoneum. No suspicious bony lesion. IMPRESSION: 1. Too small to characterize solitary liver and right renal lesion statistically simple cysts in absence of known malignancy. Follow-up CT abdomen with IV contrast can be obtained in 6 months. 2. Enlarged prostate. Clinically correlate with physical exam and PSA. 3. No nephrolithiasis. Circumferential urinary bladder wall thickening with perivesicular fat stranding may be secondary to cystitis. Clinically correlate with urinalysis. Electronically signed by: Edouard Sepulveda DO (09/14/2018 12:31 PM) [facility] SPEC #: [id number] FRANCESCA: 09/14/18 STATUS: RES REQ #: [id number] RECD: 09/14/[address] [facility] [address]: MAO HIGH Jr. DO SOURCE: VOID ENTR: 09/14/[address] [facility] [address]: BERNARDO FRANKLIN MD [facility]: ORDERED: URINE CULTURE Procedure Result URINE CULTURE Preliminary Preliminary report URINE CULTURE RES 1 Preliminary Escherichia coli Greater than 100,000 colony forming units per mL Performed at: DA - [facility] [address], [place], [place] [id number] [employer] As[employer]er: VENECIA Saucedo MD, Phone: [phone] Laboratory Tests Test 09/18/18 03:40 White Blood Count 7.1 x10^3/uL (4.0-11.0) Red Blood Count 4.64 x10^6/uL (4.30-5.70) Hemoglobin 14.3 g/dL (13.0-17.5) Hematocrit 41.4 % (39.0-53.0) Mean Corpuscular Volume 89 fL (79-100) Mean Corpuscular Hemoglobin 31 pg (25-35) Mean Corpuscular Hemoglobin Concent 35 g/dL (31-37) Red Cell Distribution Width 13.2 % (11.5-14.5) Platelet Count 189 x10^3/uL (140-400) Neutrophils (%) (Auto) 59 % (31-73) Lymphocytes (%) (Auto) 20 % (24-48) Monocytes (%) (Auto) 20 % (0-9) Eosinophils (%) (Auto) 1 % (0-3) Basophils (%) (Auto) 0 % (0-3) Neutrophils # (Auto) 4.2 x10^3uL (1.8-7.7) Lymphocytes # (Auto) 1.4 x10^3/uL (1.0-4.8) Monocytes # (Auto) 1.4 x10^3/uL (0.0-1.1) Eosinophils # (Auto) 0.1 x10^3/uL (0.0-0.7) Basophils # (Auto) 0.0 x10^3/uL (0.0-0.2) Sodium Level 138 mmol/L (136-145) Potassium Level 4.3 mmol/L (3.5-5.1) Chloride Level 102 mmol/L (98-107) Carbon Dioxide Level 26 mmol/L (21-32) Anion Gap 10 (6-14) Blood Urea Nitrogen 8 mg/dL (8-26) Creatinine 1.0 mg/dL (0.7-1.3) Estimated GFR (Cockcroft-Gault) 81.9 Glucose Level 99 mg/dL (70-99) Calcium Level 8.6 mg/dL (8.5-10.1) Assessment and Plan Assessmemt and Plan Problems Medical Problems: (1) Acute kidney injury Status: Acute (2) Pyelonephritis Status: Acute Comment Review of Relevant I have reviewed the following items sridevi (where applicable) has been applied. Labs Laboratory Tests Test 09/16/18 15:32 09/16/18 18:23 09/17/18 07:05 09/18/18 03:40 Urine Collection Type Unknown Urine Color Yellow Urine Clarity Clear Urine pH 7.0 Urine Specific [place] <=1.005 Urine Protein Negative mg/dL (NEG-TRACE) Urine Glucose (UA) Negative mg/dL (NEG) Urine Ketones (Stick) Negative mg/dL (NEG) Urine Blood Small (NEG) Urine Nitrite Negative (NEG) Urine Bilirubin Negative (NEG) Urine Urobilinogen Dipstick 2.0 mg/dL (0.2 mg/dL) Urine Leukocyte Esterase Trace (NEG) Urine RBC 1-2 /HPF (0-2) Urine WBC Occ /HPF (0-4) Urine Squamous Epithelial Cells Occ /LPF Urine Bacteria 0 /HPF (0-FEW) Sodium Level 134 mmol/L (136-145) 139 mmol/L (136-145) 138 mmol/L (136-145) Potassium Level 3.6 mmol/L (3.5-5.1) 3.4 mmol/L (3.5-5.1) 4.3 mmol/L (3.5-5.1) Chloride Level 99 mmol/L (98-107) 104 mmol/L (98-107) 102 mmol/L (98-107) Carbon Dioxide Level 26 mmol/L (21-32) 23 mmol/L (21-32) 26 mmol/L (21-32) Anion Gap 9 (6-14) 12 (6-14) 10 (6-14) Blood Urea Nitrogen 9 mg/dL (8-26) 9 mg/dL (8-26) 8 mg/dL (8-26) Creatinine 1.1 mg/dL (0.7-1.3) 1.0 mg/dL (0.7-1.3) 1.0 mg/dL (0.7-1.3) Estimated GFR (Cockcroft-Gault) 73.4 81.9 81.9 Glucose Level 97 mg/dL (70-99) 93 mg/dL (70-99) 99 mg/dL (70-99) Calcium Level 8.1 mg/dL (8.5-10.1) 8.4 mg/dL (8.5-10.1) 8.6 mg/dL (8.5-10.1) White Blood Count 5.6 x10^3/uL (4.0-11.0) 7.1 x10^3/uL (4.0-11.0) Red Blood Count 4.51 x10^6/uL (4.30-5.70) 4.64 x10^6/uL (4.30-5.70) Hemoglobin 13.6 g/dL (13.0-17.5) 14.3 g/dL (13.0-17.5) Hematocrit 40.3 % (39.0-53.0) 41.4 % (39.0-53.0) Mean Corpuscular Volume 89 fL (79-100) 89 fL (79-100) Mean Corpuscular Hemoglobin 30 pg (25-35) 31 pg (25-35) Mean Corpuscular Hemoglobin Concent 34 g/dL (31-37) 35 g/dL (31-37) Red Cell Distribution Width 13.1 % (11.5-14.5) 13.2 % (11.5-14.5) Platelet Count 158 x10^3/uL (140-400) 189 x10^3/uL (140-400) Neutrophils (%) (Auto) 60 % (31-73) 59 % (31-73) Lymphocytes (%) (Auto) 20 % (24-48) 20 % (24-48) Monocytes (%) (Auto) 19 % (0-9) 20 % (0-9) Eosinophils (%) (Auto) 1 % (0-3) 1 % (0-3) Basophils (%) (Auto) 0 % (0-3) 0 % (0-3) Neutrophils # (Auto) 3.4 x10^3uL (1.8-7.7) 4.2 x10^3uL (1.8-7.7) Lymphocytes # (Auto) 1.1 x10^3/uL (1.0-4.8) 1.4 x10^3/uL (1.0-4.8) Monocytes # (Auto) 1.0 x10^3/uL (0.0-1.1) 1.4 x10^3/uL (0.0-1.1) Eosinophils # (Auto) 0.1 x10^3/uL (0.0-0.7) 0.1 x10^3/uL (0.0-0.7) Basophils # (Auto) 0.0 x10^3/uL (0.0-0.2) 0.0 x10^3/uL (0.0-0.2) Laboratory Tests Test 09/18/18 03:40 White Blood Count 7.1 x10^3/uL (4.0-11.0) Red Blood Count 4.64 x10^6/uL (4.30-5.70) Hemoglobin 14.3 g/dL (13.0-17.5) Hematocrit 41.4 % (39.0-53.0) Mean Corpuscular Volume 89 fL (79-100) Mean Corpuscular Hemoglobin 31 pg (25-35) Mean Corpuscular Hemoglobin Concent 35 g/dL (31-37) Red Cell Distribution Width 13.2 % (11.5-14.5) Platelet Count 189 x10^3/uL (140-400) Neutrophils (%) (Auto) 59 % (31-73) Lymphocytes (%) (Auto) 20 % (24-48) Monocytes (%) (Auto) 20 % (0-9) Eosinophils (%) (Auto) 1 % (0-3) Basophils (%) (Auto) 0 % (0-3) Neutrophils # (Auto) 4.2 x10^3uL (1.8-7.7) Lymphocytes # (Auto) 1.4 x10^3/uL (1.0-4.8) Monocytes # (Auto) 1.4 x10^3/uL (0.0-1.1) Eosinophils # (Auto) 0.1 x10^3/uL (0.0-0.7) Basophils # (Auto) 0.0 x10^3/uL (0.0-0.2) Sodium Level 138 mmol/L (136-145) Potassium Level 4.3 mmol/L (3.5-5.1) Chloride Level 102 mmol/L (98-107) Carbon Dioxide Level 26 mmol/L (21-32) Anion Gap 10 (6-14) Blood Urea Nitrogen 8 mg/dL (8-26) Creatinine 1.0 mg/dL (0.7-1.3) Estimated GFR (Cockcroft-Gault) 81.9 Glucose Level 99 mg/dL (70-99) Calcium Level 8.6 mg/dL (8.5-10.1) Microbiology 09/15/18 Blood Culture - Preliminary, Resulted NO GROWTH AFTER 3 DAYS 09/16/18 Urine Culture - Final, Complete 09/16/18 Urine Culture Result 1 (NEAL) - Final, Complete Medications Current Medications Sodium Chloride 1,000 ml @ 1,000 mls/hr Q1H IV Last administered on 09/14/18at 11:57; Start 09/14/18 at 11:51; Stop 09/14/18 at 12:50; Status DC Ketorolac Tromethamine (Toradol 30mg Vial) 30 mg 1X ONCE IV Last administered on 09/14/18at 12:12; Start 09/14/18 at 12:00; Stop 09/14/18 at 12:01; Status DC Ceftriaxone Sodium (Rocephin) 1 gm 1X ONCE IVP Last administered on 09/14/18at 14:39; Start 09/14/18 at 14:30; Stop 09/14/18 at 14:31; Status DC Ondansetron HCl (Zofran) 4 mg PRN Q8HRS PRN IV NAUSEA/VOMITING; Start 09/14/18 at 15:00; Stop 09/15/18 at 14:59; Status DC Morphine Sulfate (Morphine Sulfate) 2 mg PRN Q2HR PRN IV PAIN; Start 09/14/18 a t 15:00; Stop 09/15/18 at 14:59; Status DC Sodium Chloride 1,000 ml @ 150 mls/hr Q6H40M IV Last administered on 09/15/18at 02:10; Start 09/14/18 at 14:47; Stop 09/15/18 at 14:46; Status DC Acetaminophen (Tylenol) 650 mg PRN Q4HRS PRN PO FEVER Last administered on 09/15/18at 12:20; Start 09/14/18 at 15:00; Stop 09/15/18 at 14:59; Status DC Multivitamins 10 ml/Thiamine HCl 100 mg/Folic Acid 1 mg/Sodium Chloride 1,011.2 ml @ 100 mls/ hr DAILY IV Last administered on 09/16/18at 08:51; Start 09/14/18 at 16:00; Stop 09/16/18 at 23:16; Status DC Multivitamins (Thera M Plus) 1 tab DAILY PO Last administered on 09/18/18at 08:20; Start 09/17/18 at 09:00 Lorazepam (Ativan) 4 mg PRN Q1HR PRN PO For CIWA 8-14 Last administered on 09/14/18at 19:57; Start 09/14/18 at 15:15 Lorazepam (Ativan) 8 mg PRN Q1HR PRN PO For CIWA 15 or greater; Start 09/14/18 at 15:15 Lorazepam (Ativan Inj) 2 mg PRN Q1HR PRN IV For CIWA 8-14 Last administered on 09/15/18at 09:23; Start 09/14/18 at 15:15 Lorazepam (Ativan Inj) 4 mg PRN Q1HR PRN IV For CIWA 15 or greater Last administered on 09/14/18at 23:13; Start 09/14/18 at 15:15 Haloperidol Lactate (Haldol Inj) 5 mg PRN Q4HRS PRN IVP Hallucinatns,Confusn,Delirium; Start 09/14/18 at 15:15 Diphenhydramine HCl (Benadryl) 25 mg PRN Q15MIN PRN IVP EPS symptoms 2'Haldol admin; Start 09/14/18 at 15:15 Clonidine HCl (Catapres) 0.1 mg PRN Q1HR PRN PO SBP > 180 or DBP > 100, MRX3 Last administered on 09/14/18at 20:02; Start 09/14/18 at 15:15 Lorazepam (Ativan Inj) 2 mg PRN Q15MIN PRN IV SEE COMMENTS; Start 09/14/18 at 15:15; Stop 09/17/18 at 14:07; Status DC Lorazepam (Ativan Inj) 4 mg PRN Q15MIN PRN IV SEE COMMENTS; Start 09/14/18 at 15:15; Stop 09/17/18 at 14:08; Status DC Ceftriaxone Sodium (Rocephin) 1 gm DAILY IVP ; Start 09/15/18 at 09:00; Stop 09/15/18 at 09:00; Status DC Potassium Chloride (Klor-Con) 40 meq 1X ONCE PO Last administered on 09/14/18at 16:15; Start 09/14/18 at 15:15; Stop 09/14/18 at 15:16; Status DC Piperacillin Sod/ Tazobactam Sod 3.375 gm/Sodium Chloride 50 ml @ 100 mls/hr Q6HRS IV Last administered on 09/18/18at 05:50; Start 09/15/18 at 09:00 Vancomycin HCl 500 mg/Sodium Chloride 100 ml @ 0 mls/hr 1X ONCE IV ; Start 09/15/18 at 08:15; Stop 09/15/18 at 08:16; Status UNV Vancomycin HCl 2 gm/Sodium Chloride 500 ml @ 250 mls/hr 1X ONCE IV Last administered on 09/15/18 09:54; Start 09/15/18 at 08:15; Stop 09/15/18 at 10:14; Status DC Vancomycin HCl (Vanco Per Pharmacy) 1 each PRN DAILY PRN MC SEE COMMENTS; Start 09/15/18 at 08:30; Stop 09/15/18 at 08:33; Status DC Acetaminophen (Tylenol) 650 mg PRN Q6HRS PRN PO MILD PAIN / TEMP Last administered on 09/17/18at 17:31; Start 09/15/18 at 15:15 Lactobacillus Rhamnosus (Culturelle) 1 cap BID PO Last administered on 09/18/18 08:20; Start 09/15/18 at 21:00 Acetaminophen/ Hydrocodone Bitart (Lortab 5/325) 1 tab PRN Q4HRS PRN PO PAIN Last administered on 09/16/18at 08:52; Start 09/15/18 at 15:45 Sodium Chloride 1,000 ml @ 100 mls/hr Q10H IV Last administered on 09/18/18at 08:19; Start 09/15/18 at 22:30 Potassium Chloride (Klor-Con) 40 meq 1X ONCE PO Last administered on 09/16/18at 14:57; Start 09/16/18 at 14:00; Stop 09/16/18 at 14:01; Status DC Potassium Chloride (Klor-Con) 20 meq DAILYWBKFT PO Last administered on 09/18/18at 08:20; Start 09/17/18 at 08:00 Amlodipine Besylate (Norvasc) 5 mg DAILY PO Last administered on 09/18/18at 08:20; Start 09/17/18 at 09:00 Tamsulosin HCl (Flomax) 0.4 mg DAILY PO Last administered on 09/18/18at 08:20; Start 09/16/18 at 15:30 Magnesium Hydroxide (Milk Of Magnesia) 2,400 mg PRN DAILY PRN PO CONSTIPATION; Start 09/16/18 at 18:00 Folic Acid (Folic Acid) 1 mg DAILY PO Last administered on 09/18/18at 08:21; Start 09/17/18 at 09:00 Thiamine Mononitrate (Vitamin B-1) 100 mg DAILY PO Last administered on 09/18/18at 08:20; Start 09/17/18 at 09:00 Potassium Chloride (Klor-Con) 40 meq 1X ONCE PO Last administered on 09/17/18at 14:40; Start 09/17/18 at 14:00; Stop 09/17/18 at 14:01; Status DC Potassium Chloride (Klor-Con) 20 meq DAILYWBKFT PO ; Start 09/18/18 at 08:00; Stop 09/18/18 at 08:00; Status DC Active Scripts Active Colace (Docusate Sodium) 100 Mg Capsule 1 Cap PO BID Anusol-Hc (Hydrocortisone) 30 Gm Cream..g. 1 Gee TP BID 15 Days Vitals/I & O Vital Sign - Last 24 Hours 09/17/18 09/17/18 09/17/18 09/17/18 11:00 15:00 19:00 20:00 Temp 98.4 98.4 98.3 98.4 98.4 98.3 Pulse 77 66 65 Resp 19 19 20 B/P (MAP) 115/80 (92) 119/81 (94) 125/86 (99) Pulse Ox 96 95 95 O2 Delivery Room Air Room Air Room Air Room Air 09/17/18 09/18/18 09/18/18 09/18/18 23:01 03:00 07:00 08:20 Temp 98.5 98.8 98.3 98.5 98.8 98.3 Pulse 68 72 71 71 Resp 20 20 16 B/P (MAP) 126/88 (101) 129/87 (101) 140/86 (104) 140/86 Pulse Ox 95 96 98 O2 Delivery Room Air Room Air Room Air Intake and Output 09/17/18 09/17/18 09/18/18 15:00 23:00 07:00 Intake Total 1300 ml 400 ml Output Total 0 ml Balance 0 ml 1300 ml 400 ml RANDI TRINIDAD MD Sep 18, 2018 10:14
[2018-09-18 10:37] VITALS: BP 115/82
--- NOTE | 2018-09-18 14:20 | PDOC2 ---
GI CONSULT Reason For Consult: Liver lesion, alcohol abuse HPI: HPI: Pleasant 42 y/o male admitted several days ago. Had back pain and fever w/ dark urine. WBC and Cr were elevated (both now normal), has UTI (E coli). CT showed enlarged prostate and possible cystitis. Followed by ID and urology. We are asked to see for liver lesion on CT. No heartburn/reflux, dysphagia, n/v, abd pain, diarrhea, constipation, hematochezia, melena, or weight loss. No previous EGD or colonoscopy. No GB, liver, pancreas, or PUD history. PMH: PMH: hemorrhoids left ear surgery FH: Family History: No pertinent hx (no GI cancers), Hyperlipidemia, Hypertension Social History: Smoke: <1 pack per day ALCOHOL: heavy (12 beers daily) Drugs: Marijuana ROS: GEN: Denies fevers, chills, sweats HEENT: Denies blurred vision, sore throat CV: Denies chest pain RESP: Denies shortness of air, cough GI: Per HPI : Denies hematuria, dysuria ENDO: Denies weight changes NEURO: Denies confusion, dizziness MSK: Denies weakness, joint pain/swelling SKIN: Denies jaundice, pruritus Vitals: Vitals: Vital Signs Date Time Temp Pulse Resp B/P (MAP) Pulse Ox O2 Delivery O2 Flow Rate FiO2 09/18/18 10:37 98.1 64 16 115/82 (93) 98 Room Air 98.1 Labs: Labs: Laboratory Tests Test 09/18/18 03:40 White Blood Count 7.1 x10^3/uL (4.0-11.0) Red Blood Count 4.64 x10^6/uL (4.30-5.70) Hemoglobin 14.3 g/dL (13.0-17.5) Hematocrit 41.4 % (39.0-53.0) Mean Corpuscular Volume 89 fL (79-100) Mean Corpuscular Hemoglobin 31 pg (25-35) Mean Corpuscular Hemoglobin Concent 35 g/dL (31-37) Red Cell Distribution Width 13.2 % (11.5-14.5) Platelet Count 189 x10^3/uL (140-400) Neutrophils (%) (Auto) 59 % (31-73) Lymphocytes (%) (Auto) 20 % (24-48) Monocytes (%) (Auto) 20 % (0-9) Eosinophils (%) (Auto) 1 % (0-3) Basophils (%) (Auto) 0 % (0-3) Neutrophils # (Auto) 4.2 x10^3uL (1.8-7.7) Lymphocytes # (Auto) 1.4 x10^3/uL (1.0-4.8) Monocytes # (Auto) 1.4 x10^3/uL (0.0-1.1) Eosinophils # (Auto) 0.1 x10^3/uL (0.0-0.7) Basophils # (Auto) 0.0 x10^3/uL (0.0-0.2) Sodium Level 138 mmol/L (136-145) Potassium Level 4.3 mmol/L (3.5-5.1) Chloride Level 102 mmol/L (98-107) Carbon Dioxide Level 26 mmol/L (21-32) Anion Gap 10 (6-14) Blood Urea Nitrogen 8 mg/dL (8-26) Creatinine 1.0 mg/dL (0.7-1.3) Estimated GFR (Cockcroft-Gault) 81.9 Glucose Level 99 mg/dL (70-99) Calcium Level 8.6 mg/dL (8.5-10.1) URINE CULTURE Preliminary Preliminary report URINE CULTURE RES 1 Preliminary Escherichia coli URINE CULTURE Final Final report URINE CULTURE RES 1 Final No growth Allergies: Coded Allergies: No Known Drug Allergies (Unverified , 09/14/18) Medications: Current Medications Medications (Trade) Dose Ordered Sig/Philip Start Time Stop Time Status Last Admin Dose Admin Acetaminophen (Tylenol) 650 mg PRN Q6HRS PRN 09/15/18 15:15 09/17/18 17:31 Acetaminophen/ Hydrocodone Bitart (Lortab 5/325) 1 tab PRN Q4HRS PRN 09/15/18 15:45 09/16/18 08:52 Amlodipine Besylate (Norvasc) 5 mg DAILY 09/17/18 09:00 09/18/18 08:20 Ceftriaxone Sodium (Rocephin) 1 gm DAILY 09/15/18 09:00 09/15/18 09:00 DC Clonidine HCl (Catapres) 0.1 mg PRN Q1HR PRN 09/14/18 15:15 09/14/18 20:02 Diphenhydramine HCl (Benadryl) 25 mg PRN Q15MIN PRN 09/14/18 15:15 Folic Acid (Folic Acid) 1 mg DAILY 09/17/18 09:00 09/18/18 08:21 Haloperidol Lactate (Haldol Inj) 5 mg PRN Q4HRS PRN 09/14/18 15:15 Ketorolac Tromethamine (Toradol 30mg Vial) 30 mg 1X ONCE 09/14/18 12:00 09/14/18 12:01 DC 09/14/18 12:12 Lactobacillus Rhamnosus (Culturelle) 1 cap BID 09/15/18 21:00 09/18/18 08:20 Lorazepam (Ativan Inj) 4 mg PRN Q15MIN PRN 09/14/18 15:15 09/17/18 14:08 DC Lorazepam (Ativan) 8 mg PRN Q1HR PRN 09/14/18 15:15 Magnesium Hydroxide (Milk Of Magnesia) 2,400 mg PRN DAILY PRN 09/16/18 18:00 Morphine Sulfate (Morphine Sulfate) 2 mg PRN Q2HR PRN 09/14/18 15:00 09/15/18 14:59 DC Multivitamins (Thera M Plus) 1 tab DAILY 09/17/18 09:00 09/18/18 08:20 Multivitamins 10 ml/Thiamine HCl 100 mg/Folic Acid 1 mg/Sodium Chloride 1,011.2 ml @ 100 mls/ hr DAILY 09/14/18 16:00 09/16/18 23:16 DC 09/16/18 08:51 Ondansetron HCl (Zofran) 4 mg PRN Q8HRS PRN 09/14/18 15:00 09/15/18 14:59 DC Piperacillin Sod/ Tazobactam Sod 3.375 gm/Sodium Chloride 50 ml @ 100 mls/hr Q6HRS 09/15/18 09:00 09/18/18 12:28 Potassium Chloride (Klor-Con) 20 meq [id number] 09/18/18 08:00 09/18/18 08:00 DC Sodium Chloride 1,000 ml @ 100 mls/hr Q10H 09/15/18 22:30 09/18/18 08:19 Tamsulosin HCl (Flomax) 0.4 mg DAILY 09/16/18 15:30 09/18/18 08:20 Thiamine Mononitrate (Vitamin B-1) 100 mg DAILY 09/17/18 09:00 09/18/18 08:20 Vancomycin HCl (Vanco Per Pharmacy) 1 each PRN DAILY PRN 09/15/18 08:30 09/15/18 08:33 DC Vancomycin HCl 500 mg/Sodium Chloride 100 ml @ 0 mls/hr 1X ONCE 09/15/18 08:15 09/15/18 08:16 UNV Vancomycin HCl 2 gm/Sodium Chloride 500 ml @ 250 mls/hr 1X ONCE 09/15/18 08:15 09/15/18 10:14 DC 09/15/18 09:54 Imaging: Imaging: CT A/P w/o contrast FINDINGS: Limited evaluation of solid abdominal and pelvic organs due to lack of IV contrast. Heart is normal in size. No pericardial or pleural effusion. Clear lung bases. Too small to characterize low attenuating lesion is seen in segment 2/4 a junction (series 2 image 61). Otherwise, noncontrast appearance of the liver, spleen, gallbladder, pancreas, adrenals within normal limits. 6 cm partia lly exophytic too small to characterize low attenuating lesion in the right kidney. No nephrolithiasis or hydronephrosis. No enlarged retroperitoneal or pelvic adenopathy. No free pelvic fluid or ascites. Prostate is enlarged measuring 6.3 x 5.3 cm. Urinary bladder is decompressed without radiopaque stone. Small fat-containing left inguinal hernia. Inflammatory changes are seen in the perivascular fat. No bowel obstruction. Normal appendix. No pneumoperitoneum. No suspicious bony lesion. IMPRESSION: 1. Too small to characterize solitary liver and right renal lesion statistically simple cysts in absence of known malignancy. Follow-up CT abdomen with IV contrast can be obtained in 6 months. 2. Enlarged prostate. Clinically correlate with physical exam and PSA. 3. No nephrolithiasis. Circumferential urinary bladder wall thickening with perivesicular fat stranding may be secondary to cystitis. Clinically correlate with urinalysis. PE: GEN: NAD HEENT: Atraumatic, PERRL LUNGS: CTAB HEART: RRR ABD: NABS, S/ND/NT EXTREMITY: No edema SKIN: No rashes, no jaundice NEURO/PSYCH: A & O �3 A/P: A/P: UTI/pyelonephritis, enlarged prostate Liver lesion on CT - "too small to characterize solitary liver lesion statistically simple cysts in absence of known malignancy" CRC screen - average risk Alcohol overuse -- Follow-up imaging in 6 months as suggested on CT report. Encouraged less alcohol. MARCELLUS QUISPE Sep 18, 2018 14:20
[2018-09-18 14:29] VITALS: BP 125/83
[2018-09-18 19:00] VITALS: BP 112/78
[2018-09-18 22:46] VITALS: BP 109/71
[2018-09-19] MEDS: PIPERACILLIN/TAZOBACTAM 3.375 GM in IV NORMAL SALINE 50ML 50 ML IV SCH ×3 (00:11→12:49)
[2018-09-19 02:53] VITALS: BP 119/79
[2018-09-19 04:25] LABS: BASO % 1 % (0-3); EOS # 0.2 x10^3/uL (0.0-0.7); EOS % 2 % (0-3); HEMOGLOBIN 14.5 g/dL (13.0-17.5); LYMPH # 2.3 x10^3/uL (1.0-4.8); LYMPH % 32 % (24-48); MEAN CORPUSCULAR HEMOGLOBIN 31 pg (25-35); MEAN CORPUSCULAR HGB CONC 35 g/dL (31-37); MEAN CORPUSCULAR VOLUME 90 fL (79-100); MONO # 1.5 x10^3/uL (0.0-1.1); MONO % 20 % (0-9); NEUT # 3.3 x10^3uL (1.8-7.7); NEUT % 45 % (31-73); PLATELET COUNT 250 x10^3/uL (140-400); RED BLOOD COUNT 4.67 x10^6/uL (4.30-5.70); RED CELL DISTRIBUTION WIDTH 13.1 % (11.5-14.5); WHITE BLOOD COUNT 7.3 x10^3/uL (4.0-11.0)
[2018-09-19 05:17] LABS: ALBUMIN 2.8 g/dL (3.4-5.0); ALBUMIN/GLOBULIN RATIO 0.6 (1.0-1.7); GFR 81.9; POTASSIUM 4.3 mmol/L (3.5-5.1); TOTAL BILIRUBIN 0.6 mg/dL (0.2-1.0); TOTAL PROTEIN 7.4 g/dL (6.4-8.2)
[2018-09-19 07:00] VITALS: BP 119/80
[2018-09-19] MEDS: IV NORMAL SALINE 1000ML BAG 1,000 ML IV SCH (07:05)
--- NOTE | 2018-09-19 09:27 | NUR ---
IP: Pt is + (R) E.coli with ESBL in urine requiring contact precautions.
--- NOTE | 2018-09-19 09:45 | PDOC ---
Infectious Disease Note Subjective Subjective Better. No pain with urination Fever gone No DENTON/SOA/Rash or pain with BMs ROS ROS o/w neg Vital Sign Vital Signs Vital Signs Date Time Temp Pulse Resp B/P (MAP) Pulse Ox O2 Delivery O2 Flow Rate FiO2 09/19/18 07:00 97.4 61 18 119/80 (93) 97 Room Air 97.4 Physical Exam PHYSICAL EXAM GENERAL: The patient is sitting in chair, alert, in no apparent distress. HEENT: Pupils equally round. Oropharynx pink, dry. NECK: Supple. LUNGS: Clear to auscultation. HEART: S1 and S2. BACK: Negative CVAT. ABDOMEN: Obese, soft, nontender with bowel sounds present. EXTREMITIES: No gross edema or cyanosis. SKIN: Warm without generalized rash. NEUROLOGIC: Alert and answering questions appropriately. Labs Lab Laboratory Tests Test 09/19/18 03:15 White Blood Count 7.3 x10^3/uL (4.0-11.0) Red Blood Count 4.67 x10^6/uL (4.30-5.70) Hemoglobin 14.5 g/dL (13.0-17.5) Hematocrit 42.0 % (39.0-53.0) Mean Corpuscular Volume 90 fL (79-100) Mean Corpuscular Hemoglobin 31 pg (25-35) Mean Corpuscular Hemoglobin Concent 35 g/dL (31-37) Red Cell Distribution Width 13.1 % (11.5-14.5) Platelet Count 250 x10^3/uL (140-400) Neutrophils (%) (Auto) 45 % (31-73) Lymphocytes (%) (Auto) 32 % (24-48) Monocytes (%) (Auto) 20 % (0-9) Eosinophils (%) (Auto) 2 % (0-3) Basophils (%) (Auto) 1 % (0-3) Neutrophils # (Auto) 3.3 x10^3uL (1.8-7.7) Lymphocytes # (Auto) 2.3 x10^3/uL (1.0-4.8) Monocytes # (Auto) 1.5 x10^3/uL (0.0-1.1) Eosinophils # (Auto) 0.2 x10^3/uL (0.0-0.7) Basophils # (Auto) 0.0 x10^3/uL (0.0-0.2) Sodium Level 140 mmol/L (136-145) Potassium Level 4.3 mmol/L (3.5-5.1) Chloride Level 104 mmol/L (98-107) Carbon Dioxide Level 26 mmol/L (21-32) Anion Gap 10 (6-14) Blood Urea Nitrogen 9 mg/dL (8-26) Creatinine 1.0 mg/dL (0.7-1.3) Estimated GFR (Cockcroft-Gault) 81.9 BUN/Creatinine Ratio 9 (6-20) Glucose Level 93 mg/dL (70-99) Calcium Level 9.0 mg/dL (8.5-10.1) Total Bilirubin 0.6 mg/dL (0.2-1.0) Aspartate Amino Transf (AST/SGOT) 82 U/L (15-37) Alanine Aminotransferase (ALT/SGPT) 88 U/L (16-63) Alkaline Phosphatase 147 U/L (46-116) Total Protein 7.4 g/dL (6.4-8.2) Albumin 2.8 g/dL (3.4-5.0) Albumin/Globulin Ratio 0.6 (1.0-1.7) Micro URINE CULTURE RES 1 Final Escherichia coli Greater than 100,000 colony forming units per mL Multi-Drug Resistant Organism Susceptibility profile is consistent with a probable ESBL. ANTIMICROBIAL SUSCEPTIBILITY Final Comment S = Susceptible; I = Intermediate; R = Resistant P = Positive; N = Negative MICS are expressed in micrograms per mL Antibiotic RSLT#1 RSLT#2 RSLT#3 RSLT#4 Amikacin S =4 Amoxicillin/Clavulanic Acid I =16 Ampicillin R>=32 Ampicillin/Sulbactam R>=32 Cefazolin R>=64 Cefepime S =2 Cefotaxime R>=64 Ceftazidime R =16 Ceftriaxone R>=64 Cefuroxime R>=64 Ciprofloxacin R>=4 Ertapenem S<=0.12 Gentamicin R>=16 Imipenem S<=1 Levofloxacin R>=8 Meropenem S<=0.25 Nitrofurantoin S<=16 Piperacillin/Tazobactam S =8 Tetracycline R>=16 Tigecycline S<=0.5 Tobramycin R>=16 Trimethoprim/Sulfa R>=320 Microbiology 6/23/19 Blood Culture - Preliminary, Resulted NO GROWTH AFTER 1 DAY Objective Assessment Fever - ? ID vs withdrawl - resolved Leukocytosis - better UTI POA - Ecoli Sens pending - 09/14 CATHERINE Enlarged prostate Heavy alcohol use Plan Plan of Care Will order midline will need Invanz daily through 09/24 Cont Zosyn until d/c and will need Invanz on day of discharge Social service consulted f/u cultures Supportive care d/w nursing RAFAEL JIMENEZ MD Sep 19, 2018 09:45
--- NOTE | 2018-09-19 09:48 | PDOC ---
PROGRESS NOTES History of Present Illness History of Present Illness VTE Prophylaxis Ordered VTE Prophylaxis Devices: Yes VTE Pharmacological Prophylaxi: Yes Assessment/Plan Assessment/Plan IMPRESSION: 1. solitary liver and right renal lesion statistically simple cysts in absence of known malignancy. Follow-up CT abdomen with IV contrast can be obtained in 6 months. 2. Enlarged prostate. ON CT IMAGING 3. Circumferential urinary bladder wall thickening with perivesicular fat stranding may be secondary to cystitis. Clinically correlate with urinalysis. 4. UTI 5. SEPSIS URINE CULTURE RES 1 Preliminary Escherichia coli Greater than 100,000 colony forming units per mL BLOOD CULTURE Preliminary NO GROWTH AFTER 3 DAYS 6, ACUTE RENAL FAILURE, IMPROVED 7. SEVERE ALCOHOL ABUSE, drinks 12 beers a day 8. thc abuse 9. HYPERTENSION, UNCONTROLLED 10. severe protein-caloric malnutrition 09/17 still with fever last night 100.4 blood cult neg to date d/w , notes nocturia x 3 prior to admit on average 09/18 urine sensitivies pending e coli 09/19 D/W DR JIMENEZ, WILL NEED PICC FOR MDR e.coli PLAN ADMIT cont iv zosyn IV FLUIDS BLOOD AND URINE CULTURES DVT PROPHYLAXIS Nephrology consult po protonix gi prophylaxis urology following ID FOLLOWING DISCUSSED NEED ETOH CESSATION NORVASC 5 MG PO DAILY consult GI LIVER LESION, ETOH ABUSE appointment for follow up with Dr. Guzman to draw PSA and follow up in 3-4 weeks, once he is fully recovered from this infection. Acute UTI and Pyelo can artificially elevate PSA. Start Flomax for incomplete bladder emptying OF 108-116. Discussed possible side effects of medication with patient. will need Invanz daily through 09/24 Cont Zosyn until d/c /// IV Invanz on day of discharge Social service consulted PICC 37 min pt exam, chart review, > 50% of time spent with exam, chart review, pt care coordination, disease process education , d/w in room Vitals Vitals Vital Signs Date Time Temp Pulse Resp B/P (MAP) Pulse Ox O2 Delivery O2 Flow Rate FiO2 09/19/18 07:00 97.4 61 18 119/80 (93) 97 Room Air 97.4 Physical Exam Physical Exam GENERAL: The patient is sitting in bed alert, in no apparent distress. HEENT: Pupils equally round. Oropharynx pink, dry. NECK: Supple. LUNGS: Clear to auscultation. HEART: S1 and S2. BACK: Negative CVAT. ABDOMEN: Obese, soft, nontender with bowel sounds present. EXTREMITIES: No gross edema or cyanosis. SKIN: Warm without generalized rash. NEUROLOGIC: Alert and answering questions appropriately. General: Alert, Oriented X3, Cooperative, No acute distress Heart: Regular rate, Normal S1, Normal S2, No murmurs Lungs: Clear Abdomen: Normal bowel sounds, Soft, No tenderness Extremities: No clubbing, No cyanosis, No edema Skin: No breakdown Labs LABS PROCEDURE: CT ABDOMEN PELVIS WO CONTRAST PQRS Compliance statement: One or more of the following individualized dose reduction techniques were utilized for this examination: 1. Automated exposure control. 2. Adjustment of the mA and/or kV according to patient size. 3. Use of iterative reconstruction technique. Indication:Bilateral flank pain. TECHNIQUE: CT abdomen and pelvis without IV contrast with multiplanar reformats. COMPARISON: None FINDINGS: Limited evaluation of solid abdominal and pelvic organs due to lack of IV contrast. Heart is normal in size. No pericardial or pleural effusion. Clear lung bases. Too small to characterize low attenuating lesion is seen in segment 2/4 a junction (series 2 image 61). Otherwise, noncontrast appearance of the liver, spleen, gallbladder, pancreas, adrenals within normal limits. 6 cm partially exophytic too small to characterize low attenuating lesion in the right kidney. No nephrolithiasis or hydronephrosis. No enlarged retroperitoneal or pelvic adenopathy. No free pelvic fluid or ascites. Prostate is enlarged measuring 6.3 x 5.3 cm. Urinary bladder is decompressed without radiopaque stone. Small fat-containing left inguinal hernia. Inflammatory changes are seen in the perivascular fat. No bowel obstruction. Normal appendix. No pneumoperitoneum. No suspicious bony lesion. IMPRESSION: 1. Too small to characterize solitary liver and right renal lesion statistically simple cysts in absence of known malignancy. Follow-up CT abdomen with IV contrast can be obtained in 6 months. 2. Enlarged prostate. Clinically correlate with physical exam and PSA. 3. No nephrolithiasis. Circumferential urinary bladder wall thickening with perivesicular fat stranding may be secondary to cystitis. Clinically correlate with urinalysis. Electronically signed by: Edouard Sepulveda DO (09/14/2018 12:31 PM) [facility] Procedure Result URINE CULTURE Final Final report URINE CULTURE RES 1 Final Escherichia coli Greater than 100,000 colony forming units per mL Multi-Drug Resistant Organism Susceptibility profile is consistent with a probable ESBL. ANTIMICROBIAL SUSCEPTIBILITY Final Comment S = Susceptible; I = Intermediate; R = Resistant P = Positive; N = Negative MICS are expressed in micrograms per mL Antibiotic RSLT#1 RSLT#2 RSLT#3 RSLT#4 Amikacin S =4 Amoxicillin/Clavulanic Acid I =16 Ampicillin R>=32 Ampicillin/Sulbactam R>=32 Cefazolin R>=64 Cefepime S =2 Cefotaxime R>=64 Ceftazidime R =16 Ceftriaxone R>=64 Cefuroxime R>=64 Ciprofloxacin R>=4 Ertapenem S<=0.12 Gentamicin R>=16 Imipenem S<=1 Levofloxacin R>=8 Meropenem S<=0.25 Nitrofurantoin S<=16 Piperacillin/Tazobactam S =8 Tetracycline R>=16 Tigecycline S<=0.5 Tobramycin R>=16 Trimethoprim/Sulfa R>=320 Laboratory Tests Test 09/19/18 03:15 White Blood Count 7.3 x10^3/uL (4.0-11.0) Red Blood Count 4.67 x10^6/uL (4.30-5.70) Hemoglobin 14.5 g/dL (13.0-17.5) Hematocrit 42.0 % (39.0-53.0) Mean Corpuscular Volume 90 fL (79-100) Mean Corpuscular Hemoglobin 31 pg (25-35) Mean Corpuscular Hemoglobin Concent 35 g/dL (31-37) Red Cell Distribution Width 13.1 % (11.5-14.5) Platelet Count 250 x10^3/uL (140-400) Neutrophils (%) (Auto) 45 % (31-73) Lymphocytes (%) (Auto) 32 % (24-48) Monocytes (%) (Auto) 20 % (0-9) Eosinophils (%) (Auto) 2 % (0-3) Basophils (%) (Auto) 1 % (0-3) Neutrophils # (Auto) 3.3 x10^3uL (1.8-7.7) Lymphocytes # (Auto) 2.3 x10^3/uL (1.0-4.8) Monocytes # (Auto) 1.5 x10^3/uL (0.0-1.1) Eosinophils # (Auto) 0.2 x10^3/uL (0.0-0.7) Basophils # (Auto) 0.0 x10^3/uL (0.0-0.2) Sodium Level 140 mmol/L (136-145) Potassium Level 4.3 mmol/L (3.5-5.1) Chloride Level 104 mmol/L (98-107) Carbon Dioxide Level 26 mmol/L (21-32) Anion Gap 10 (6-14) Blood Urea Nitrogen 9 mg/dL (8-26) Creatinine 1.0 mg/dL (0.7-1.3) Estimated GFR (Cockcroft-Gault) 81.9 BUN/Creatinine Ratio 9 (6-20) Glucose Level 93 mg/dL (70-99) Calcium Level 9.0 mg/dL (8.5-10.1) Total Bilirubin 0.6 mg/dL (0.2-1.0) Aspartate Amino Transf (AST/SGOT) 82 U/L (15-37) Alanine Aminotransferase (ALT/SGPT) 88 U/L (16-63) Alkaline Phosphatase 147 U/L (46-116) Total Protein 7.4 g/dL (6.4-8.2) Albumin 2.8 g/dL (3.4-5.0) Albumin/Globulin Ratio 0.6 (1.0-1.7) Assessment and Plan Assessmemt and Plan Problems Medical Problems: (1) Acute kidney injury Status: Acute (2) Pyelonephritis Status: Acute Comment Review of Relevant I have reviewed the following items sridevi (where applicable) has been applied. Labs Laboratory Tests Test 09/18/18 03:40 09/19/18 03:15 White Blood Count 7.1 x10^3/uL (4.0-11.0) 7.3 x10^3/uL (4.0-11.0) Red Blood Count 4.64 x10^6/uL (4.30-5.70) 4.67 x10^6/uL (4.30-5.70) Hemoglobin 14.3 g/dL (13.0-17.5) 14.5 g/dL (13.0-17.5) Hematocrit 41.4 % (39.0-53.0) 42.0 % (39.0-53.0) Mean Corpuscular Volume 89 fL (79-100) 90 fL (79-100) Mean Corpuscular Hemoglobin 31 pg (25-35) 31 pg (25-35) Mean Corpuscular Hemoglobin Concent 35 g/dL (31-37) 35 g/dL (31-37) Red Cell Distribution Width 13.2 % (11.5-14.5) 13.1 % (11.5-14.5) Platelet Count 189 x10^3/uL (140-400) 250 x10^3/uL (140-400) Neutrophils (%) (Auto) 59 % (31-73) 45 % (31-73) Lymphocytes (%) (Auto) 20 % (24-48) 32 % (24-48) Monocytes (%) (Auto) 20 % (0-9) 20 % (0-9) Eosinophils (%) (Auto) 1 % (0-3) 2 % (0-3) Basophils (%) (Auto) 0 % (0-3) 1 % (0-3) Neutrophils # (Auto) 4.2 x10^3uL (1.8-7.7) 3.3 x10^3uL (1.8-7.7) Lymphocytes # (Auto) 1.4 x10^3/uL (1.0-4.8) 2.3 x10^3/uL (1.0-4.8) Monocytes # (Auto) 1.4 x10^3/uL (0.0-1.1) 1.5 x10^3/uL (0.0-1.1) Eosinophils # (Auto) 0.1 x10^3/uL (0.0-0.7) 0.2 x10^3/uL (0.0-0.7) Basophils # (Auto) 0.0 x10^3/uL (0.0-0.2) 0.0 x10^3/uL (0.0-0.2) Sodium Level 138 mmol/L (136-145) 140 mmol/L (136-145) Potassium Level 4.3 mmol/L (3.5-5.1) 4.3 mmol/L (3.5-5.1) Chloride Level 102 mmol/L (98-107) 104 mmol/L (98-107) Carbon Dioxide Level 26 mmol/L (21-32) 26 mmol/L (21-32) Anion Gap 10 (6-14) 10 (6-14) Blood Urea Nitrogen 8 mg/dL (8-26) 9 mg/dL (8-26) Creatinine 1.0 mg/dL (0.7-1.3) 1.0 mg/dL (0.7-1.3) Estimated GFR (Cockcroft-Gault) 81.9 81.9 Glucose Level 99 mg/dL (70-99) 93 mg/dL (70-99) Calcium Level 8.6 mg/dL (8.5-10.1) 9.0 mg/dL (8.5-10.1) BUN/Creatinine Ratio 9 (6-20) Total Bilirubin 0.6 mg/dL (0.2-1.0) Aspartate Amino Transf (AST/SGOT) 82 U/L (15-37) Alanine Aminotransferase (ALT/SGPT) 88 U/L (16-63) Alkaline Phosphatase 147 U/L (46-116) Total Protein 7.4 g/dL (6.4-8.2) Albumin 2.8 g/dL (3.4-5.0) Albumin/Globulin Ratio 0.6 (1.0-1.7) Laboratory Tests Test 09/19/18 03:15 White Blood Count 7.3 x10^3/uL (4.0-11.0) Red Blood Count 4.67 x10^6/uL (4.30-5.70) Hemoglobin 14.5 g/dL (13.0-17.5) Hematocrit 42.0 % (39.0-53.0) Mean Corpuscular Volume 90 fL (79-100) Mean Corpuscular Hemoglobin 31 pg (25-35) Mean Corpuscular Hemoglobin Concent 35 g/dL (31-37) Red Cell Distribution Width 13.1 % (11.5-14.5) Platelet Count 250 x10^3/uL (140-400) Neutrophils (%) (Auto) 45 % (31-73) Lymphocytes (%) (Auto) 32 % (24-48) Monocytes (%) (Auto) 20 % (0-9) Eosinophils (%) (Auto) 2 % (0-3) Basophils (%) (Auto) 1 % (0-3) Neutrophils # (Auto) 3.3 x10^3uL (1.8-7.7) Lymphocytes # (Auto) 2.3 x10^3/uL (1.0-4.8) Monocytes # (Auto) 1.5 x10^3/uL (0.0-1.1) Eosinophils # (Auto) 0.2 x10^3/uL (0.0-0.7) Basophils # (Auto) 0.0 x10^3/uL (0.0-0.2) Sodium Level 140 mmol/L (136-145) Potassium Level 4.3 mmol/L (3.5-5.1) Chloride Level 104 mmol/L (98-107) Carbon Dioxide Level 26 mmol/L (21-32) Anion Gap 10 (6-14) Blood Urea Nitrogen 9 mg/dL (8-26) Creatinine 1.0 mg/dL (0.7-1.3) Estimated GFR (Cockcroft-Gault) 81.9 BUN/Creatinine Ratio 9 (6-20) Glucose Level 93 mg/dL (70-99) Calcium Level 9.0 mg/dL (8.5-10.1) Total Bilirubin 0.6 mg/dL (0.2-1.0) Aspartate Amino Transf (AST/SGOT) 82 U/L (15-37) Alanine Aminotransferase (ALT/SGPT) 88 U/L (16-63) Alkaline Phosphatase 147 U/L (46-116) Total Protein 7.4 g/dL (6.4-8.2) Albumin 2.8 g/dL (3.4-5.0) Albumin/Globulin Ratio 0.6 (1.0-1.7) Microbiology 09/15/18 Blood Culture - Preliminary, Resulted NO GROWTH AFTER 4 DAYS 09/16/18 Urine Culture - Final, Complete 09/16/18 Urine Culture Result 1 (NEAL) - Final, Complete Medications Current Medications Sodium Chloride 1,000 ml @ 1,000 mls/hr Q1H IV Last administered on 09/14/18at 11:57; Start 09/14/18 at 11:51; Stop 09/14/18 at 12:50; Status DC Ketorolac Tromethamine (Toradol 30mg Vial) 30 mg 1X ONCE IV Last administered on 09/14/18at 12:12; Start 09/14/18 at 12:00; Stop 09/14/18 at 12:01; Status DC Ceftriaxone Sodium (Rocephin) 1 gm 1X ONCE IVP Last administered on 09/14/18at 14:39; Start 09/14/18 at 14:30; Stop 09/14/18 at 14:31; Status DC Ondansetron HCl (Zofran) 4 mg PRN Q8HRS PRN IV NAUSEA/VOMITING; Start 09/14/18 at 15:00; Stop 09/15/18 at 14:59; Status DC Morphine Sulfate (Morphine Sulfate) 2 mg PRN Q2HR PRN IV PAIN; Start 09/14/18 at 15:00; Stop 09/15/18 at 14:59; Status DC Sodium Chloride 1,000 ml @ 150 mls/hr Q6H40M IV Last administered on 09/15/18at 02:10; Start 09/14/18 at 14:47; Stop 09/15/18 at 14:46; Status DC Acetaminophen (Tylenol) 650 mg PRN Q4HRS PRN PO FEVER Last administered on 09/15/18at 12:20; Start 09/14/18 at 15:00; Stop 09/15/18 at 14:59; Status DC Multivitamins 10 ml/Thiamine HCl 100 mg/Folic Acid 1 mg/Sodium Chloride 1,011.2 ml @ 100 mls/ hr DAILY IV Last administered on 09/16/18at 08:51; Start 09/14/18 at 16:00; Stop 09/16/18 at 23:16; Status DC Multivitamins (Thera M Plus) 1 tab DAILY PO Last administered on 09/18/18at 08:20; Start 09/17/18 at 09:00 Lorazepam (Ativan) 4 mg PRN Q1HR PRN PO For CIWA 8-14 Last administered on 09/14/18at 19:57; Start 09/14/18 at 15:15 Lorazepam (Ativan) 8 mg PRN Q1HR PRN PO For CIWA 15 or greater; Start 09/14/18 at 15:15 Lorazepam (Ativan Inj) 2 mg PRN Q1HR PRN IV For CIWA 8-14 Last administered on 09/15/18at 09:23; Start 09/14/18 at 15:15 Lorazepam (Ativan Inj) 4 mg PRN Q1HR PRN IV For CIWA 15 or greater Last administered on 09/14/18at 23:13; Start 09/14/18 at 15:15 Haloperidol Lactate (Haldol Inj) 5 mg PRN Q4HRS PRN IVP Hallucinatns,Confusn,Delirium; Start 09/14/18 at 15:15 Diphenhydramine HCl (Benadryl) 25 mg PRN Q15MIN PRN IVP EPS symptoms 2'Haldol admin; Start 09/14/18 at 15:15 Clonidine HCl (Catapres) 0.1 mg PRN Q1HR PRN PO SBP > 180 or DBP > 100, MRX3 Last administered on 09/14/18at 20:02; Start 09/14/18 at 15:15 Lorazepam (Ativan Inj) 2 mg PRN Q15MIN PRN IV SEE COMMENTS; Start 09/14/18 at 15:15; Stop 09/17/18 at 14:07; Status DC Lorazepam (Ativan Inj) 4 mg PRN Q15MIN PRN IV SEE COMMENTS; Start 09/14/18 at 15:15; Stop 09/17/18 at 14:08; Status DC Ceftriaxone Sodium (Rocephin) 1 gm DAILY IVP ; Start 09/15/18 at 09:00; Stop 09/15/18 at 09:00; Status DC Potassium Chloride (Klor-Con) 40 meq 1X ONCE PO Last administered on 09/14/18at 16:15; Start 09/14/18 at 15:15; Stop 09/14/18 at 15:16; Status DC Piperacillin Sod/ Tazobactam Sod 3.375 gm/Sodium Chloride 50 ml @ 100 mls/hr Q6HRS IV Last administered on 09/19/18at 05:35; Start 09/15/18 at 09:00 Vancomycin HCl 500 mg/Sodium Chloride 100 ml @ 0 mls/hr 1X ONCE IV ; Start 09/15/18 at 08:15; Stop 09/15/18 at 08:16; Status UNV Vancomycin HCl 2 gm/Sodium Chloride 500 ml @ 250 mls/hr 1X ONCE IV Last administered on 09/15/18at 09:54; Start 09/15/18 at 08:15; Stop 09/15/18 at 10:14; Status DC Vancomycin HCl (Vanco Per Pharmacy) 1 each PRN DAILY PRN MC SEE COMMENTS; Start 09/15/18 at 08:30; Stop 09/15/18 at 08:33; Status DC Acetaminophen (Tylenol) 650 mg PRN Q6HRS PRN PO MILD PAIN / TEMP Last administered on 09/17/18at 17:31; Start 09/15/18 at 15:15 Lactobacillus Rhamnosus (Culturelle) 1 cap BID PO Last administered on 09/18/18at 22:24; Start 09/15/18 at 21:00 Acetaminophen/ Hydrocodone Bitart (Lortab 5/325) 1 tab PRN Q4HRS PRN PO MODERATE - SEVERE PAIN Last administered on 09/16/18at 08:52; Start 09/15/18 at 15:45 Sodium Chloride 1,000 ml @ 100 mls/hr Q10H IV Last administered on 09/19/18at 0 7:05; Start 09/15/18 at 22:30 Potassium Chloride (Klor-Con) 40 meq 1X ONCE PO Last administered on 09/16/18at 14:57; Start 09/16/18 at 14:00; Stop 09/16/18 at 14:01; Status DC Potassium Chloride (Klor-Con) 20 meq DAILYWBKFT PO Last administered on at 08:20; Start 09/17/18 at 08:00 Amlodipine Besylate (Norvasc) 5 mg DAILY PO Last administered on 09/18/18at 08:20; Start 09/17/18 at 09:00 Tamsulosin HCl (Flomax) 0.4 mg DAILY PO Last administered on 09/18/18at 08:20; Start 09/16/18 at 15:30 Magnesium Hydroxide (Milk Of Magnesia) 2,400 mg PRN DAILY PRN PO CONSTIPATION; Start 09/16/18 at 18:00 Folic Acid (Folic Acid) 1 mg DAILY PO Last administered on 09/18/18at 08:21; Start 09/17/18 at 09:00 Thiamine Mononitrate (Vitamin B-1) 100 mg DAILY PO Last administered on 09/18/18at 08:20; Start 09/17/18 at 09:00 Potassium Chloride (Klor-Con) 40 meq 1X ONCE PO Last administered on 09/17/18at 14:40; Start 09/17/18 at 14:00; Stop 09/17/18 at 14:01; Status DC Potassium Chloride (Klor-Con) 20 meq DAILYWBKFT PO ; Start 09/18/18 at 08:00; Stop 09/18/18 at 08:00; Status DC Active Scripts Active Colace (Docusate Sodium) 100 Mg Capsule 1 Cap PO BID Anusol-Hc (Hydrocortisone) 30 Gm Cream..g. 1 Gee TP BID 15 Days Vitals/I & O Vital Sign - Last 24 Hours 09/18/18 09/18/18 09/18/18 09/18/18 10:37 14:29 19:00 22:46 Temp 98.1 98.0 97.6 98.2 98.1 98.0 97.6 98.2 Pulse 64 63 74 59 Resp 16 19 16 16 B/P (MAP) 115/82 (93) 125/83 (97) 112/78 (89) 109/71 (84) Pulse Ox 98 99 96 96 O2 Delivery Room Air Room Air Room Air Room Air 09/19/18 09/19/18 02:53 07:00 Temp 97.6 97.4 97.6 97.4 Pulse 55 61 Resp 16 18 B/P (MAP) 119/79 (92) 119/80 (93) Pulse Ox 97 97 O2 Delivery Room Air Room Air Intake and Output 09/18/18 09/18/18 09/19/18 15:00 23:00 07:00 Intake Total 1000 ml 500 ml Output Total 700 ml Balance -700 ml 1000 ml 500 ml RANDI TRINIDAD MD Sep 19, 2018 09:48
[2018-09-19] MEDS: amLODIPine BESYLATE 5 MG TABLET PO SCH (10:25)
[2018-09-19] MEDS: THIAMINE 100 MG TABLET. PO SCH (10:25)
[2018-09-19] MEDS: FOLIC ACID 1 MG TABLET. PO SCH (10:26)
[2018-09-19] MEDS: TAMSULOSIN 0.4 MG CAP.ER.24H. PO SCH (10:26)
[2018-09-19] MEDS: MULTIVITAMIN with MINERAL TABLET. PO SCH (10:26)
[2018-09-19] MEDS: LACTOBACILLUS RHAMNOSUS GG 1 CAPSULE. PO SCH (10:26)
[2018-09-19] MEDS: POTASSIUM CHLORIDE 20 MEQ TABLET.ER. PO SCH (10:26)
[2018-09-19 11:00] VITALS: BP 127/82
--- NOTE | 2018-09-19 11:25 | NUR ---
SW notified by ID pt will need IV abx. SW phoned and faxed orders/cinicals to [facility] and [facility]. [facility] to notify SW with benefits. Discussed with Physician.
--- NOTE | 2018-09-19 11:55 | PDOC ---
Subjective: Subjective: No complaints, wants to go home. Objective: Objective: D/w Dr. Martinez - will need PICC and IV atbx, checking abd US for abnormal LFTs, also Hep panel. Vital Signs: Vital Signs Date Time Temp Pulse Resp B/P (MAP) Pulse Ox O2 Delivery O2 Flow Rate FiO2 09/19/18 10:25 61 119/80 09/19/18 08:00 Room Air 09/19/18 07:00 97.4 18 97 97.4 Labs: Laboratory Tests Test 09/19/18 03:15 White Blood Count 7.3 x10^3/uL Red Blood Count 4.67 x10^6/uL Hemoglobin 14.5 g/dL Hematocrit 42.0 % Mean Corpuscular Volume 90 fL Mean Corpuscular Hemoglobin 31 pg Mean Corpuscular Hemoglobin Concent 35 g/dL Red Cell Distribution Width 13.1 % Platelet Count 250 x10^3/uL Neutrophils (%) (Auto) 45 % Lymphocytes (%) (Auto) 32 % Monocytes (%) (Auto) 20 % Eosinophils (%) (Auto) 2 % Basophils (%) (Auto) 1 % Neutrophils # (Auto) 3.3 x10^3uL Lymphocytes # (Auto) 2.3 x10^3/uL Monocytes # (Auto) 1.5 x10^3/uL Eosinophils # (Auto) 0.2 x10^3/uL Basophils # (Auto) 0.0 x10^3/uL Sodium Level 140 mmol/L Potassium Level 4.3 mmol/L Chloride Level 104 mmol/L Carbon Dioxide Level 26 mmol/L Anion Gap 10 Blood Urea Nitrogen 9 mg/dL Creatinine 1.0 mg/dL Estimated GFR (Cockcroft-Gault) 81.9 BUN/Creatinine Ratio 9 Glucose Level 93 mg/dL Calcium Level 9.0 mg/dL Total Bilirubin 0.6 mg/dL Aspartate Amino Transf (AST/SGOT) 82 U/L Alanine Aminotransferase (ALT/SGPT) 88 U/L Alkaline Phosphatase 147 U/L Total Protein 7.4 g/dL Albumin 2.8 g/dL Albumin/Globulin Ratio 0.6 URINE CULTURE RES 1 Final Escherichia coli Greater than 100,000 colony forming units per mL Multi-Drug Resistant Organism Susceptibility profile is consistent with a probable ESBL. Imaging: Abd US pending PE: GEN: NAD LUNGS: CTAB HEART: RRR ABD: S/ND/NT NEURO/PSYCH: A & O �3 A/P: UTI Tiny liver lesion, mildly elevated LFTs -- US and viral Hep panel pending per primary. MARCELLUS QUISPE Sep 19, 2018 11:55
--- NOTE | 2018-09-19 12:14 | RAD ---
Right upper quadrant abdominal ultrasound, 09/19/2018: HISTORY: Liver and renal lesions on CT The gallbladder is within normal limits in size. There is no sonographic evidence of cholelithiasis. The gallbladder wall is at the upper limits of normal in thickness measuring 2-3 mm. The common hepatic duct measures 5-6 mm. No intrahepatic biliary ductal dilatation is seen. The subcentimeter low-density lesion identified in the left lobe of liver on the recent CT study was not visualized sonographically. No hepatic mass is evident. The visualized portions of the pancreatic body are unremarkable. Other portions of the pancreas were obscured by overlying bowel. There is a 1.2 cm hypoechoic right renal cortical nodule. It does not demonstrate definite posterior acoustic enhancement. This is probably a complicated cyst. The right kidney is otherwise unremarkable. IMPRESSION: 1. The small hepatic lesion seen on the recent CT study could not be visualized sonographically due to its small size. 2. Small hypoechoic right renal cortical nodule which is probably a complicated cyst. Sonographic follow-up is suggested to establish stability. Electronically signed by: Fredy Marte MD (09/19/2018 12:11 PM) [facility]
--- NOTE | 2018-09-19 12:55 | NUR ---
[facility] following pt. Pt will be responsible for $213/day until deductible is met. After deductible is met pt will only be responsible for $31.97/day. Pt verbalized understanding. Flo will come in to teach pt at 1600. Massiel [facility]ston [facility] will meet with pt today. Pt will need PICC line and will need to get his first dose before leaving. Discussed with RN.
[2018-09-19] MEDS ORDERED: LIDOCAINE WITH 8.4% SOD BICARB 3 ML DISP.SYRIN. ONE (13:04)
[2018-09-19] MEDS ORDERED: LIDOCAINE WITH 8.4% SOD BICARB 3 ML DISP.SYRIN. INJ ONE (13:30)
--- NOTE | 2018-09-19 13:33 | PDOC3 ---
Discharge Summary Date of Admission: Sep 14, 2018 Date of Discharge: Sep 19, 2018 Follow-Up: 1-2 days Admitting Diagnosis comment: VTE Prophylaxis Ordered VTE Prophylaxis Devices: Yes VTE Pharmacological Prophylaxi: Yes DISCHARGE DX Assessment/Plan IMPRESSION: 1. solitary liver and right renal lesion statistically simple cysts in absence of known malignancy. Follow-up CT abdomen with IV contrast can be obtained in 6 months. 2. Enlarged prostate. ON CT IMAGING 3. Circumferential urinary bladder wall thickening with perivesicular fat stranding may be secondary to cystitis. Clinically correlate with urinalysis. 4. UTI 5. SEPSIS URINE CULTURE RES 1 Preliminary Escherichia coli Greater than 100,000 colony forming units per mL BLOOD CULTURE Preliminary NO GROWTH AFTER 3 DAYS 6, ACUTE RENAL FAILURE, IMPROVED 7. SEVERE ALCOHOL ABUSE, drinks 12 beers a day 8. thc abuse 9. HYPERTENSION, UNCONTROLLED 10. severe protein-caloric malnutrition 09/17 still with fever last night 100.4 blood cult neg to date d/w , notes nocturia x 3 prior to admit on average 09/18 urine sensitivies pending e coli 09/19 D/W DR JIMENEZ, WILL NEED PICC FOR MDR e.coli, IV INVANZ PLAN ADMIT cont iv zosyn IV FLUIDS BLOOD AND URINE CULTURES DVT PROPHYLAXIS Nephrology consult po protonix gi prophylaxis urology following ID FOLLOWING DISCUSSED NEED ETOH CESSATION NORVASC 5 MG PO DAILY consult GI LIVER LESION, ETOH ABUSE appointment for follow up with Dr. Guzman to draw PSA and follow up in 3-4 weeks, once he is fully recovered from this infection. Acute UTI and Pyelo can artificially elevate PSA. Start Flomax for incomplete bladder emptying OF 108-116. Discussed possible side effects of medication with patient. will need Invanz daily through 09/24 Cont Zosyn until d/c /// IV Invanz on day of discharge Social service consulted PICC 35 min pt exam, chart review D/C PLANNING , > 50% of time spent with exam, chart review, pt care coordination, disease process education , d/w in room Vitals Vitals Vital Signs Date Time Temp Pulse Resp B/P (MAP) Pulse Ox O2 Delivery O2 Flow Rate FiO2 09/19/18 07:00 97.4 61 18 119/80 (93) 97 Room Air 97.4 Physical Exam Physical Exam GENERAL: The patient is sitting in bed alert, in no apparent distress. HEENT: Pupils equally round. Oropharynx pink, dry. NECK: Supple. LUNGS: Clear to auscultation. HEART: S1 and S2. BACK: Negative CVAT. ABDOMEN: Obese, soft, nontender with bowel sounds present. EXTREMITIES: No gross edema or cyanosis. SKIN: Warm without generalized rash. NEUROLOGIC: Alert and answering questions appropriately. General: Alert, Oriented X3, Cooperative, No acute distress Heart: Regular rate, Normal S1, Normal S2, No murmurs Lungs: Clear Abdomen: Normal bowel sounds, Soft, No tenderness Extremities: No clubbing, No cyanosis, No edema Skin: No breakdown Labs LABS PROCEDURE: CT ABDOMEN PELVIS WO CONTRAST PQRS Compliance statement: One or more of the following individualized dose reduction techniques were utilized for this examination: 1. Automated exposure control. 2. Adjustment of the mA and/or kV according to patient size. 3. Use of iterative reconstruction technique. Indication:Bilateral flank pain. TECHNIQUE: CT abdomen and pelvis without IV contrast with multiplanar reformats. COMPARISON: None FINDINGS: Limited evaluation of solid abdominal and pelvic organs due to lack of IV contrast. Heart is normal in size. No pericardial or pleural effusion. Clear lung bases. Too small to characterize low attenuating lesion is seen in segment 2/4 a junction (series 2 image 61). Otherwise, noncontrast appearance of the liver, spleen, gallbladder, pancreas, adrenals within normal limits. 6 cm partially exophytic too small to characterize low attenuating lesion in the right kidney. No nephrolithiasis or hydronephrosis. No enlarged retroperitoneal or pelvic adenopathy. No free pelvic fluid or ascites. Prostate is enlarged measuring 6.3 x 5.3 cm. Urinary bladder is decompressed without radiopaque stone. Small fat-containing left inguinal hernia. Inflammatory changes are seen in the perivascular fat. No bowel obstruction. Normal appendix. No pneumoperitoneum. No suspicious bony lesion. IMPRESSION: 1. Too small to characterize solitary liver and right renal lesion statistically simple cysts in absence of known malignancy. Follow-up CT abdomen with IV contrast can be obtained in 6 months. 2. Enlarged prostate. Clinically correlate with physical exam and PSA. 3. No nephrolithiasis. Circumferential urinary bladder wall thickening with perivesicular fat stranding may be secondary to cystitis. Clinically correlate with urinalysis. Electronically signed by: Edouard Sepulveda DO (09/14/2018 12:31 PM) [facility] Procedure Result -------- URINE CULTURE Final Final report URINE CULTURE RES 1 Final Escherichia coli Greater than 100,000 colony forming units per mL Multi-Drug Resistant Organism Susceptibility profile is consistent with a probable ESBL. ANTIMICROBIAL SUSCEPTIBILITY Final Comment S = Susceptible; I = Intermediate; R = Resistant P = Positive; N = Negative MICS are expressed in micrograms per mL Antibiotic RSLT#1 RSLT#2 RSLT#3 RSLT#4 Amikacin S =4 Amoxicillin/Clavulanic Acid I =16 Ampicillin R>=32 Ampicillin/Sulbactam R>=32 Cefazolin R>=64 Cefepime S =2 Cefotaxime R>=64 Ceftazidime R =16 Ceftriaxone R>=64 Cefuroxime R>=64 Ciprofloxacin R>=4 Ertapenem S<=0.12 Gentamicin R>=16 Imipenem S<=1 Levofloxacin R>=8 Meropenem S<=0.25 Nitrofurantoin S<=16 Piperacillin/Tazobactam S =8 Tetracycline R>=16 Tigecycline S<=0.5 Tobramycin R>=16 FINAL DIAGNOSIS Problems Medical Problems: (1) Acute kidney injury Status: Acute (2) Pyelonephritis Status: Acute Brief Hospital Course Mr. Garcia is a 42 old [sex] who presented with [SEPSIS/ UTI ] CONDITION AT DISCHARGE: Improved Discharge Medications Current Medications Sodium Chloride 1,000 ml @ 1,000 mls/hr Q1H IV Last administered on 09/14/18at 11:57; Start 09/14/18 at 11:51; Stop 09/14/18 at 12:50; Status DC Ketorolac Tromethamine (Toradol 30mg Vial) 30 mg 1X ONCE IV Last administered on 09/14/18at 12:12; Start 09/14/18 at 12:00; Stop 09/14/18 at 12:01; Status DC Ceftriaxone Sodium (Rocephin) 1 gm 1X ONCE IVP Last administered on 09/14/18at 14:39; Start 09/14/18 at 14:30; Stop 09/14/18 at 14:31; Status DC Ondansetron HCl (Zofran) 4 mg PRN Q8HRS PRN IV NAUSEA/VOMITING; Start 09/14/18 at 15:00; Stop 09/15/18 at 14:59; Status DC Morphine Sulfate (Morphine Sulfate) 2 mg PRN Q2HR PRN IV PAIN; Start 09/14/18 at 15:00; Stop 09/15/18 at 14:59; Status DC Sodium Chloride 1,000 ml @ 150 mls/hr Q6H40M IV Last administered on 09/15/18at 02:10; Start 09/14/18 at 14:47; Stop 09/15/18 at 14:46; Status DC Acetaminophen (Tylenol) 650 mg PRN Q4HRS PRN PO FEVER Last administered on 09/15/18 12:20; Start 09/14/18 at 15:00; Stop 09/15/18 at 14:59; Status DC Multivitamins 10 ml/Thiamine HCl 100 mg/Folic Acid 1 mg/Sodium Chloride 1,011.2 ml @ 100 mls/ hr DAILY IV Last administered on 09/16/18at 08:51; Start 09/14/18 at 16:00; Stop 09/16/18 at 23:16; Status DC Multivitamins (Thera M Plus) 1 tab DAILY PO Last administered on 09/19/18at 10:26; Start 09/17/18 at 09:00 Lorazepam (Ativan) 4 mg PRN Q1HR PRN PO For CIWA 8-14 Last administered on 09/14/18at 19:57; Start 09/14/18 at 15:15 Lorazepam (Ativan) 8 mg PRN Q1HR PRN PO For CIWA 15 or greater; Start 09/14/18 at 15:15 Lorazepam (Ativan Inj) 2 mg PRN Q1HR PRN IV For CIWA 8-14 Last administered on 09/15/18at 09:23; Start 09/14/18 at 15:15 Lorazepam (Ativan Inj) 4 mg PRN Q1HR PRN IV For CIWA 15 or greater Last administered on 09/14/18at 23:13; Start 09/14/18 at 15:15 Haloperidol Lactate (Haldol Inj) 5 mg PRN Q4HRS PRN IVP Hallucinatns,Confusn,Delirium; Start 09/14/18 at 15:15 Diphenhydramine HCl (Benadryl) 25 mg PRN Q15MIN PRN IVP EPS symptoms 2'Haldol admin; Start 09/14/18 at 15:15 Clonidine HCl (Catapres) 0.1 mg PRN Q1HR PRN PO SBP > 180 or DBP > 100, MRX3 Last administered on 09/14/18at 20:02; Start 09/14/18 at 15:15 Lorazepam (Ativan Inj) 2 mg PRN Q15MIN PRN IV SEE COMMENTS; Start 09/14/18 at 15:15; Stop 09/17/18 at 14:07; Status DC Lorazepam (Ativan Inj) 4 mg PRN Q15MIN PRN IV SEE COMMENTS; Start 09/14/18 at 15:15; Stop 09/17/18 at 14:08; Status DC Ceftriaxone Sodium (Rocephin) 1 gm DAILY IVP ; Start 09/15/18 at 09:00; Stop 09/15/18 at 09:00; Status DC Potassium Chloride (Klor-Con) 40 meq 1X ONCE PO Last administered on 09/14/18at 16:15; Start 09/14/18 at 15:15; Stop 09/14/18 at 15:16; Status DC Piperacillin Sod/ Tazobactam Sod 3.375 gm/Sodium Chloride 50 ml @ 100 mls/hr Q6HRS IV Last administered on 09/19/18at 12:49; Start 09/15/18 at 09:00 Vancomycin HCl 500 mg/Sodium Chloride 100 ml @ 0 mls/hr 1X ONCE IV ; Start 09/15/18 at 08:15; Stop 09/15/18 at 08:16; Status UNV Vancomycin HCl 2 gm/Sodium Chloride 500 ml @ 250 mls/hr 1X ONCE IV Last administered on 09/15/18at 09:54; Start 09/15/18 at 08:15; Stop 09/15/18 at 10:14; Status DC Vancomycin HCl (Vanco Per Pharmacy) 1 each PRN DAILY PRN MC SEE COMMENTS; Start 09/15/18 at 08:30; Stop 09/15/18 at 08:33; Status DC Acetaminophen (Tylenol) 650 mg PRN Q6HRS PRN PO MILD PAIN / TEMP Last administered on 09/17/18at 17:31; Start 09/15/18 at 15:15 Lactobacillus Rhamnosus (Culturelle) 1 cap BID PO Last administered on 09/19/18at 10:26; Start 09/15/18 at 21:00 Acetaminophen/ Hydrocodone Bitart (Lortab 5/325) 1 tab PRN Q4HRS PRN PO MODERATE - SEVERE PAIN Last administered on 09/16/18at 08:52; Start 09/15/18 at 15:45 Sodium Chloride 1,000 ml @ 100 mls/hr Q10H IV Last administered on 09/19/18at 07:05; Start 09/15/18 at 22:30 Potassium Chloride (Klor-Con) 40 meq 1X ONCE PO Last administered on 09/16/18at 14:57; Start 09/16/18 at 14:00; Stop 09/16/18 at 14:01; Status DC Potassium Chloride (Klor-Con) 20 meq DAILYWBKFT PO Last administered on 09/19/18at 10:26; Start 09/17/18 at 08:00 Amlodipine Besylate (Norvasc) 5 mg DAILY PO Last administered on 09/19/18at 10:25; Start 09/17/18 at 09:00 Tamsulosin HCl (Flomax) 0.4 mg DAILY PO Last administered on 09/19/18at 10:26; Start 09/16/18 at 15:30 Magnesium Hydroxide (Milk Of Magnesia) 2,400 mg PRN DAILY PRN PO CONSTIPATION; Start 09/16/18 at 18:00 Folic Acid (Folic Acid) 1 mg DAILY PO Last administered on 09/19/18at 10:26; Start 09/17/18 at 09:00 Thiamine Mononitrate (Vitamin B-1) 100 mg DAILY PO Last administered on 09/19/18at 10:25; Start 09/17/18 at 09:00 Potassium Chloride (Klor-Con) 40 meq 1X ONCE PO Last administered on 09/17/18at 14:40; Start 09/17/18 at 14:00; Stop 09/17/18 at 14:01; Status DC Potassium Chloride (Klor-Con) 20 meq DAILYWBKFT PO ; Start 09/18/18 at 08:00; Stop 09/18/18 at 08:00; Status DC Lidocaine/Sodium Bicarbonate (Buffered Lidocaine 1%) 3 ml STK-MED ONCE .ROUTE ; Start 09/19/18 at 13:04; Stop 09/19/18 at 13:05; Status DC Lidocaine/Sodium Bicarbonate (Buffered Lidocaine 1%) 6 ml 1X ONCE INJ ; Start 09/19/18 at 13:30; Stop 09/19/18 at 13:31; Status UNV Active Scripts Active Colace (Docusate Sodium) 100 Mg Capsule 1 Cap PO BID Anusol-Hc (Hydrocortisone) 30 Gm Cream..g. 1 Gee TP BID 15 Days Vital Signs Vital Signs Date Time Temp Pulse Resp B/P (MAP) Pulse Ox O2 Delivery O2 Flow Rate FiO2 09/19/18 10:25 61 119/80 09/19/18 08:00 Room Air 09/19/18 07:00 97.4 18 97 97.4 Labs Laboratory Tests Test 09/18/18 03:40 09/19/18 03:15 White Blood Count 7.1 x10^3/uL (4.0-11.0) 7.3 x10^3/uL (4.0-11.0) Red Blood Count 4.64 x10^6/uL (4.30-5.70) 4.67 x10^6/uL (4.30-5.70) Hemoglobin 14.3 g/dL (13.0-17.5) 14.5 g/dL (13.0-17.5) Hematocrit 41.4 % (39.0-53.0) 42.0 % (39.0-53.0) Mean Corpuscular Volume 89 fL (79-100) 90 fL (79-100) Mean Corpuscular Hemoglobin 31 pg (25-35) 31 pg (25-35) Mean Corpuscular Hemoglobin Concent 35 g/dL (31-37) 35 g/dL (31-37) Red Cell Distribution Width 13.2 % (11.5-14.5) 13.1 % (11.5-14.5) Platelet Count 189 x10^3/uL (140-400) 250 x10^3/uL (140-400) Neutrophils (%) (Auto) 59 % (31-73) 45 % (31-73) Lymphocytes (%) (Auto) 20 % (24-48) 32 % (24-48) Monocytes (%) (Auto) 20 % (0-9) 20 % (0-9) Eosinophils (%) (Auto) 1 % (0-3) 2 % (0-3) Basophils (%) (Auto) 0 % (0-3) 1 % (0-3) Neutrophils # (Auto) 4.2 x10^3uL (1.8-7.7) 3.3 x10^3uL (1.8-7.7) Lymphocytes # (Auto) 1.4 x10^3/uL (1.0-4.8) 2.3 x10^3/uL (1.0-4.8) Monocytes # (Auto) 1.4 x10^3/uL (0.0-1.1) 1.5 x10^3/uL (0.0-1.1) Eosinophils # (Auto) 0.1 x10^3/uL (0.0-0.7) 0.2 x10^3/uL (0.0-0.7) Basophils # (Auto) 0.0 x10^3/uL (0.0-0.2) 0.0 x10^3/uL (0.0-0.2) Sodium Level 138 mmol/L (136-145) 140 mmol/L (136-145) Potassium Level 4.3 mmol/L (3.5-5.1) 4.3 mmol/L (3.5-5.1) Chloride Level 102 mmol/L (98-107) 104 mmol/L (98-107) Carbon Dioxide Level 26 mmol/L (21-32) 26 mmol/L (21-32) Anion Gap 10 (6-14) 10 (6-14) Blood Urea Nitrogen 8 mg/dL (8-26) 9 mg/dL (8-26) Creatinine 1.0 mg/dL (0.7-1.3) 1.0 mg/dL (0.7-1.3) Estimated GFR (Cockcroft-Gault) 81.9 81.9 Glucose Level 99 mg/dL (70-99) 93 mg/dL (70-99) Calcium Level 8.6 mg/dL (8.5-10.1) 9.0 mg/dL (8.5-10.1) BUN/Creatinine Ratio 9 (6-20) Total Bilirubin 0.6 mg/dL (0.2-1.0) Aspartate Amino Transf (AST/SGOT) 82 U/L (15-37) Alanine Aminotransferase (ALT/SGPT) 88 U/L (16-63) Alkaline Phosphatase 147 U/L (46-116) Total Protein 7.4 g/dL (6.4-8.2) Albumin 2.8 g/dL (3.4-5.0) Albumin/Globulin Ratio 0.6 (1.0-1.7) Hepatitis A IgM Antibody Nonreactive (Nonreactive) Hepatitis B Surface Antigen Nonreactive (Nonreactive) Hepatitis B Core IgM Antibody Nonreactive (Nonreactive) Hepatitis C IgG Antibody Nonreactive (Nonreactive) Laboratory Tests Test 09/19/18 03:15 White Blood Count 7.3 x10^3/uL (4.0-11.0) Red Blood Count 4.67 x10^6/uL (4.30-5.70) Hemoglobin 14.5 g/dL (13.0-17.5) Hematocrit 42.0 % (39.0-53.0) Mean Corpuscular Volume 90 fL (79-100) Mean Corpuscular Hemoglobin 31 pg (25-35) Mean Corpuscular Hemoglobin Concent 35 g/dL (31-37) Red Cell Distribution Width 13.1 % (11.5-14.5) Platelet Count 250 x10^3/uL (140-400) Neutrophils (%) (Auto) 45 % (31-73) Lymphocytes (%) (Auto) 32 % (24-48) Monocytes (%) (Auto) 20 % (0-9) Eosinophils (%) (Auto) 2 % (0-3) Basophils (%) (Auto) 1 % (0-3) Neutrophils # (Auto) 3.3 x10^3uL (1.8-7.7) Lymphocytes # (Auto) 2.3 x10^3/uL (1.0-4.8) Monocytes # (Auto) 1.5 x10^3/uL (0.0-1.1) Eosinophils # (Auto) 0.2 x10^3/uL (0.0-0.7) Basophils # (Auto) 0.0 x10^3/uL (0.0-0.2) Sodium Level 140 mmol/L (136-145) Potassium Level 4.3 mmol/L (3.5-5.1) Chloride Level 104 mmol/L (98-107) Carbon Dioxide Level 26 mmol/L (21-32) Anion Gap 10 (6-14) Blood Urea Nitrogen 9 mg/dL (8-26) Creatinine 1.0 mg/dL (0.7-1.3) Estimated GFR (Cockcroft-Gault) 81.9 BUN/Creatinine Ratio 9 (6-20) Glucose Level 93 mg/dL (70-99) Calcium Level 9.0 mg/dL (8.5-10.1) Total Bilirubin 0.6 mg/dL (0.2-1.0) Aspartate Amino Transf (AST/SGOT) 82 U/L (15-37) Alanine Aminotransferase (ALT/SGPT) 88 U/L (16-63) Alkaline Phosphatase 147 U/L (46-116) Total Protein 7.4 g/dL (6.4-8.2) Albumin 2.8 g/dL (3.4-5.0) Albumin/Globulin Ratio 0.6 (1.0-1.7) Hepatitis A IgM Antibody Nonreactive (Nonreactive) Hepatitis B Surface Antigen Nonreactive (Nonreactive) Hepatitis B Core IgM Antibody Nonreactive (Nonreactive) Hepatitis C IgG Antibody Nonreactive (Nonreactive) Allergies Allergies Coded Allergies Type Severity Reaction Last Updated Verified I S O L A T I O N *CONTACT* Allergy Unknown 09/19/18 Yes No Known Medication Allergies Allergy Unknown 09/19/18 Yes Disposition/Orders: D/C to Home w/ RANDI BRUNO MD Sep 19, 2018 13:33
[2018-09-19] MEDS ORDERED: AMLO5TAB10 PO (13:37)
[2018-09-19] MEDS ORDERED: MAGN400O7 PO (13:37)
[2018-09-19] MEDS ORDERED: THIA100T22 PO (13:37)
[2018-09-19] MEDS ORDERED: ERTA1VIA IJ (13:37)
[2018-09-19] MEDS ORDERED: LACT1CAP19 PO (13:37)
[2018-09-19] MEDS ORDERED: MULT1TAB90 PO (13:37)
[2018-09-19] MEDS ORDERED: FOLI1TAB16 PO (13:37)
[2018-09-19] MEDS ORDERED: TAMS0.4C97 PO (13:37)
--- NOTE | 2018-09-19 13:40 | SNU/HH DC ---
DISCHARGE WITH HOME HEALTH DISCHARGE INFORMATION: Final Diagnosis: Problems Medical Problems: (1) Acute kidney injury Status: Acute (2) Pyelonephritis Status: Acute Condition on Discharge: Stable CODE STATUS: Code Status: Full HOME HEALTH: Face to Face: I certify this patient is under my care and that I, or a nurse practitioner or physician's temporary administrative assistant working with me, had a face to face encounter that meets the physician face to face encounter requirements with this patient on []. Medical Complications: HTN, Other (SEPSIS) Correction For: Assess & Educate Safety, Medication Management RN For Eval/Treatment: Yes Home Health Aide For: Self-care [employer] For: Community Resources Pt Meets Homebound Status: Poor coordination w/ amb., Psychological condition POST DISCHARGE ORDERS: Activity Instructions for Disc: Activity as tolerated Weight Bearing Status after Di: Full weight bearing, As tolerated DIET AFTER DISCHARGE: Cardiac Wound/Incision Care: Reinforce dressing PRN CHECKS AFTER DISCHARGE: Checks after discharge: Check blood press - daily CERTIFICATION STATEMENT: Certification Statement: Certification Statement: Based on the above finding, I certify that this patient is confined to the home and needs intermittent retirement care, physical therapy and/or speech therapy, or continues to need occupational therapy.~ This patient is under my care, and I have initiated the establishment of the plan of care.~ This patient will be followed by myself or a community physician who will periodically review the plan of care. Home Meds Active Scripts Ertapenem Sodium (INVANZ) 1 Gm Vial, 1 GM IJ DAILY08 for UTI for 14 Days, #14 EACH Prov:RANDI TRINIDAD MD 09/19/18 Multivits,Ca,Minerals/Iron/Fa (THERA-M TABLET) 1 Each Tablet, 1 TAB PO DAILY for SUPPLEMENT for 30 Days, #30 TAB Prov:RANDI TRINIDAD MD 09/19/18 Thiamine Mononitrate (VITAMIN B-1) 100 Mg Tablet, 100 MG PO DAILY for SUPPLEMENT for 30 Days, #30 TAB Prov:RANDI TRINIDAD MD 09/19/18 Folic Acid (FOLIC ACID) 1 Mg Tablet, 1 MG PO DAILY for SUPPLEMENT for 30 Days, #30 TAB Prov:RANDI TRINIDAD MD 09/19/18 Lactobacillus Rhamnosus Gg (CULTURELLE) 1 Each Cap.sprink, 1 CAP PO BID for SUPPLEMENT for 28 Days, #56 CAP Prov:RANDI TRINIDAD MD 09/19/18 Magnesium Hydroxide (MILK OF MAGNESIA) 400 Mg/5 Ml Oral.susp, 2400 MG PO PRN DAILY PRN for CONSTIPATION for 14 Days, #120 MISC Prov:RANDI TRINIDAD MD 09/19/18 Amlodipine Besylate (AMLODIPINE BESYLATE) 5 Mg Tablet, 5 MG PO DAILY for BLOOD PRESSURE for 30 Days, #30 TAB Prov:RANDI TRINIDAD MD 09/19/18 Tamsulosin Hcl (FLOMAX) 0.4 Mg Cap.er.24h, 0.4 MG PO DAILY for PROSTATE for 30 Days, #30 CAP.SR Prov:RANDI TRINIDAD MD 09/19/18 Docusate Sodium (COLACE) 100 Mg Capsule, 1 CAP PO BID, #30 CAP Prov:SAM BREWER APRN 05/10/18 Hydrocortisone (ANUSOL-HC) 30 Gm Cream..g., 1 JUNIOR TP BID for 15 Days, #30 GM Prov:SAM BREWER APRN 05/10/18 RANDI TRINIDAD MD Sep 19, 2018 13:40
--- NOTE | 2018-09-19 13:47 | NUR ---
SW following. Pt discharging home today with [facility] and [facility]. [facility] will deliver medication to pt's home tonight for start date tomorrow (09/20/18). RN notified. No further SW needs.
[2018-09-19] MEDS ORDERED: ERTAPENEM 1 GM in IV NORMAL SALINE 50ML 50 ML IV ONE (15:00)
--- NOTE | 2018-09-19 15:42 | NUR ---
Discharge Note: MILA HERNANDEZ [place] Discharge instructions and discharge home medications reviewed with Spouse and a copy given. All questions have been answered and understanding verbalized. The following instructions and handouts were given: Alcohol/cessation, UTI. [facility]ai and Rahel both came in to do in-room teaching for home infusion. Discontinued lines and drains: L FA peripheral IV discontinued, no bleeding or bruising, catheter tip intact. Patient discharged to home for self-care in the company of his family. Home Health set up with Rahel to start tomorrow, [facility] will be shipping necessary supplies tonight for start tomorrow, 09/20.
--- NOTE | 2018-09-20 11:10 | RAD ---
Exam: Fluoroscopic and ultrasound guided right percutaneous inserted central venous catheter placement 09/20/2018 11:06 AM .Indication: Long-term IV antibiotic therapy Technique: Informed oral and written consent were obtained. The right upper extremity was prepped and draped using sterile barrier technique. All elements of maximal sterile barrier technique including the use of a cap, mask, sterile gown, sterile gloves, large sterile sheet, appropriate hand hygiene, and 2% chlorhexidine for cutaneous antisepsis (or acceptable alternative antiseptic per current guidelines) were followed for this procedure.. Real-time ultrasound demonstrated a patent right basilic vein. The right upper extremity was prepped and draped in usual sterile fashion. 1% lidocaine used for local anesthesia. Using real-time ultrasound guidance the access needle percutaneously punctured the selected vein. Reference ultrasound images were saved to the medical record. A guidewire was advanced through the needle to the cavoatrial junction, and a peel-away sheath placed. The catheter was cut to length and inserted through the peel-away sheath such that its tip is at the cavoatrial junction. The wire and sheath were removed, and the catheter secured in place, and a sterile dressing was applied. Catheter was found to flush and aspirate normally. No immediate complications are identified. FLUORO TIME: 0.5 DOSE AREA PRODUCT: 2 Gycm2 Impression: Ultrasound and fluoroscopically guided placement of a right upper extremity PICC line.
== END 2018-09-19 15:50 | disposition home health service (06) | DRG 871 ==
LOC: ER 11:37 → 5 NORTH 14:46
PROVIDERS: ADMIT Family Medicine; ATTEND Family Medicine
PROC: 02HV33Z Insertion of Infusion Device into Superior Vena Cava, Percutaneous Approach (ICD-10-PCS; principal; 2018-09-19)
PROC: B5181ZA Fluoroscopy of Superior Vena Cava using Low Osmolar Contrast, Guidance (ICD-10-PCS; 2018-09-19)
PROC: B548ZZA Ultrasonography of Superior Vena Cava, Guidance (ICD-10-PCS; 2018-09-19)
DX: A41.9 Sepsis, unspecified organism (principal); N17.0 Acute kidney failure with tubular necrosis; E43 Unspecified severe protein-calorie malnutrition; N12 Tubulo-interstitial nephritis, not specified as acute or chronic; B96.20 Unspecified Escherichia coli [E. coli] as the cause of diseases classified elsewhere; E78.5 Hyperlipidemia, unspecified; F10.10 Alcohol abuse, uncomplicated; F12.10 Cannabis abuse, uncomplicated; F17.210 Nicotine dependence, cigarettes, uncomplicated; I10 Essential (primary) hypertension; N40.0 Benign prostatic hyperplasia without lower urinary tract symptoms; R31.0 Gross hematuria; Z82.49 Family history of ischemic heart disease and other diseases of the circulatory system; Z68.28 Body mass index [BMI] 28.0-28.9, adult; Z79.899 Other long term (current) drug therapy
CPT/HCPCS: 36415; 36569; 74176; 76705; 76937; 77001; 80048; 80053; 81001; 83605; 85007; 85025; 85610; 86705; 86709; 86803; 87040; 87086; 87186; 87340; 96361; 96374; 96375; C1751; C1892; J0696; J1335; J1885; J2060; J2543; J3370; J7030; J7040; 99285-25